=== PATIENT | female | born 1945 | race Caucasian/White ===

== ENCOUNTER 2024-05-14 23:27 | Inpatient (IN) | payer MEDICARE, BC, SELFPAY ==
--- NOTE | ~2024-05-14 | MR_ITS ---
EXAMINATION: MR brain/brain stem wo con DATE: 05/16/2024 12:00 INDICATION: Altered mental status TECHNIQUE: Magnetic resonance imaging (MRI) of the brain and brainstem was performed without intraven ous contrast. Sequences included sagittal and axial T1-weighted SE, axial diffusion-weighted FS SE, a xial T2*-weighted GRE, axial T2-weighted FLAIR, and axial T2-weighted FSE. Apparent diffusion coeffic ient (ADC) maps were created. COMPARISON: Head CT dated 05/15/2024 FINDINGS: There are no areas of restricted diffusion to suggest acute infarction. No intracranial hemorrhage or abnormal intracranial mass lesion. There are a few scattered small foci of nonspecific increased T2- weighted signal intensity in the cerebral white matter, predominantly involving the deep and perivent ricular white matter which is within normal limits for age. There are no intraparenchymal signal abno rmalities seen on the other pulse sequences. The ventricles are symmetric and normal in size. There a re no abnormal extra-axial fluid collections. Flow voids are seen in the cerebral arteries on the T2- weighted sequences consistent with their expected patency. Changes of bilateral intraocular lens repl acement. Mild mucosal thickening the bilateral ethmoid sinuses. Visualized orbits and soft tissues ar e unremarkable. IMPRESSION: 1. Normal aging brain with mild scattered white matter T2 hyperintensity consistent with chronic smal l vessel ischemic disease. No acute intracranial process. Reviewed, dictated and finalized at location A. MATED LOGISTICS SPECIALIST IMPRESSION: 1. Normal aging brain with mild scattered white matter T2 hyperintensity consis tent with chronic small vessel ischemic disease. No acute intracranial process.
--- NOTE | ~2024-05-14 | CT_ITS ---
History: Fall, confusion PROCEDURE: CT head without contrast. COMPARISON: None TECHNIQUE: Axial imaging of the head performed from the skull base to the vertex without IV contrast. Sagittal a nd coronal reformations obtained. DLP: 757 mGy-cm FINDINGS: The ventricles are enlarged. The dilatation of the ventricles is proportional to the degree of sulcal prominence, not uncommon in the senescent brain. Decreased attenuation is identified within the periventricular white matter, likely secondary to micr ovascular ischemic disease, in a patient of this age. Basal ganglia calcifications are present. There is no mass, mass effect or midline shift. There is no abnormal extra-axial fluid collection or intracranial hemorrhage. Visualized paranasal sinuses are clear. The mastoid air cells are well aerated. No acute displaced fractures within the overlying cranium. Impression: No acute intracranial hemorrhage or suspicious mass effect. Reviewed, dictated and finalized at location A. OUT PRESS OPERATOR Impression: No acute intracranial hemorrhage or suspicious mass effect.
--- NOTE | ~2024-05-14 | XR_ITS ---
Portable chest x-ray Comparison: None Clinical History: Status post fall Findings: Lungs are clear, without focal consolidation or pleural effusion. Cardiomediastinal silho uette is enlarged. Bones and soft tissues are unremarkable. Impression: Clear lungs. Cardiomegaly. Reviewed, dictated and finalized at location . OUT WORKER Impression: Clear lungs. Cardiomegaly.
--- NOTE | ~2024-05-14 | XR_ITS ---
AP view of the pelvis and AP and lateral views of the right hip Clinical history: Pain Findings: No acute fracture or dislocation is seen. Osseous alignment is anatomic. There is severe ri ght hip joint osteoarthritis, with [id number] appearance and marked joint space. There is reactive sclerosis and subchondral cystic change in the right humeral head. Left hip joint is intact.. Soft ti ssues are unremarkable. Impression: Severe osteoarthritis of the right hip joint, as detailed above. No acute fracture or dislocation seen. Reviewed, dictated and finalized at location M. SIT POLICE OFFICER Impression: Severe osteoarthritis of the right hip joint, as detailed above. No acute fracture or dislocation seen.
[2024-05-14 23:26] VITALS: BP 154/74; PULSE 104; RESP 15; TEMP 36.8; O2SAT 97
--- NOTE | 2024-05-14 23:40 | ECG_ITS ---
Test Date: 2024-05-14 23:52:01 Measurements Intervals [place] Rate: 104 P: 51 CO: 161 QRS: 1 QRSD: 90 T: 18 QT: 353 QTc: 465 Interpretive Statements SINUS TACHYCARDIA LOW QRS VOLTAGE IN PRECORDIAL LEADS POSSIBLE ANTERIOR MYOCARDIAL INFARCTION , PROBABLY OLD BORDERLINE ST-T WAVE ABNORMALITY- INFERIOR LEADS BASELINE ARTIFACT- I, II, III, AVR, AVL, AVF, V1-V6 ABNORMAL ECG No previous ECG available for comparison Electronically Signed On 05-15-2024 10:07:52 OBSTETRICS GYNECOLOGY PHYSICIAN by Leonard Cowan D.O.
--- OUTSIDE RECORDS SUMMARY | 2024-05-14 23:51 | XMS_ITS | Referral Summary ---
Author Organization [facility] Address [address] [place] [address] Care Team Providers Care Voip Technician Name Role Phone Kendra BAILEY MD, Graham Palomino Primary Care Provid er Allergies No known active allergies Medications lisinopril-hyd roCHLOROthiazi de (PRINZIDE,ZEST ORETIC) 10-12.5 mg per tablet 10-12.5 mg Active aspirin 81 mg enteric coated tablet Take 1 tablet (81 mg total) by mouth daily Active multivitamin tablet Rx: Multivitamins Capsule Active rosuvastatin (CRESTOR) 10 mg tablet 3 Active tiZANidine (ZANAFLEX) 2 mg tabletIndicati ons:Chronic right-sided low back pain without sciatica Take 1 tablet (2 mg total) by mouth nightly as needed for muscle spasms 30 tablet 4 Active Active Problems Problem Noted Date Diagnosed Date Right sided sciatica 02/14/2022 Primary osteoarthritis of left knee 11/07/2021 Chronic pain of left knee 11/07/2021 Aftercare following joint replacement 09/03/2017 Immunizations Name Administration Dates Next Due Influenza, Trivalent, High D ose, Split, Preservative Free, Intramuscular 12/26/2017 Social History Tobacco Use Types Packs/Day Years Used Date Smoking Tobacco: Never Smokeless Tobacco: Never Tobacco Cessation:Counseling Given: Not Answered Alcohol Use Standard Drinks/Week Comments Not Currently 0 (1 standard drink = 0.6 oz pur e alcohol) AUDIT-C Answer Date Recorded Frequency of Alcohol Consumption Never 07/11/2018 Average Number of Drinks Not on file 019 Frequency of Binge Drinking Not on file 07/01 Personal Safety Answer Date Recorded Getting School Help Needed Not on file 03/15 Comments Unknown Sex and Gender Information Value Date Recorded Sex Assigned at Not on file Legal Sex Female 2:41 AM DETECTIVE CHIEF Gender Identity Not on file Sexual Orientation Not on file 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 Not on file Not on file Not on file Last Filed Vital Signs Vital Sign Reading Time Taken Comments Blood Pressure 109/50 07/30/2017 3:17 PM CDT Pulse 94 07/30/2017 3:17 PM CDT Temperature 36.4 C (97.5 F) 07/30/2017 3:17 PM CDT Respiratory Rate - - Oxygen Saturation 95% 07/30/2017 3:17 PM CDT Inhaled Oxygen Concentration - - Weight 83.5 kg (184 lb) 12/10/2023 10:42 AM CDT Height 162.6 cm (5' 4 ) 12/10/2023 10:42 AM CDT Body Mass Index 31.58 12/10/2023 10:42 AM CDT Plan of Treatment Not on file Procedures Procedure Name Priority Date/Time Associated Diagnosis Comments SCREENING MAMMOGRAM 2D BILATERAL Routine 03/30/2014 9:21 AM DETECTIVE CHIEF from Last 3 Months or Most Recently Relevant to Health Maintenance Results * Screening Mammogram 2D Bilateral (03/30/2014 9:21 AM DETECTIVE CHIEF) Anatomical Region Laterality Modality Breast Bilateral Mammography 03/30/2014 9:21 AM DETECTIVE CHIEF Impressions 03/30/2014 1:16 PM DETECTIVE CHIEF BIRADS 1: NEGATIVE There is no mammographic evidence of malignancy. A 1 year screening mammogram is recommended. The patient has been or will be contacted. The patient will be entered into an automated reminder system to schedule a mammogram in one year. Electronically signed by: Dr. Stephen Moscoso nh/:03/30/2014 13:15:05 Marketing Information Coordinator: Shama MARTINEZ (R)(M), [facility] letter sent: Normal Exam Reading location: BI-RADS: 1 Negative [EOD] Narrative 03/30/2014 1:16 PM DETECTIVE CHIEF - ABDIRAHMAN BILATERAL SCREENING W/CAD BILATERAL DIGITAL SCREENING MAMMOGRAM WITH CAD: 03/30/2014 The study was acquired using full field digital technology and interpreted from soft copy. Current study was also evaluated with ICAD version 7.2. COMPARISONS: Comparison is made to exams dated: 12/09/2012 mammogram and 10/06/2011 mammogram - [facility]. BREAST TISSUE:There are scattered fibroglandular densities in both breasts. FINDINGS: No significant masses, calcifications, or other findings are seen in either breast. There has been no significant interval change. Procedure Note Provider, MD Elizabeth - 08/17/2020 - ABDIRAHMAN BILATERAL SCREENING W/CAD BILATERAL DIGITAL SCREENING MAMMOGRAM WITH CAD: 03/30/2014 The study was acquired using full field digital technology and interpretedfrom soft copy. Current study was also evaluated with ICAD version 7.2. COMPARISONS: Comparison is made to exams dated: 12/09/2012 mammogram and 10/06/2011 mammogram - [facility]. BREAST TISSUE:There are scattered fibroglandular densities in bothbreasts. FINDINGS: No significant masses, calcifications, or other findings areseen in either breast. There has been no significant interval change. IMPRESSION: BIRADS 1: NEGATIVE There is no mammographic evidence of malignancy. A 1 year screeningmammogram is recommended. The patient has been or will be contacted. The patient will be entered into an automated reminder system to schedulea mammogram in one year. Electronically signed by: Dr. Stephen Moscoso nh/:03/30/2014 13:15:05 Marketing Information Coordinator: Shama De Jesus RT (R)(M), [facility] letter sent: Normal Exam Reading location: BI-RADS: 1 Negative [EOD] Scout Pak MD IMG MAMMO PROCEDURES Fi nal Result from Last 3 Months or Most Recently Relevant to Health Maintenance Insurance MEDICARE [facility] MEDICARE [facility] Care Teams Voip Technician Relationship Specialty Start Date End Date rGaham Gardner II, MD PCP - General Family Practice 02/14/22
--- OUTSIDE RECORDS SUMMARY | 2024-05-14 23:51 | XMS_ITS | Clinical Summary ---
Author Organization [facility] Address [facility] [place] [address] Care Team Providers Care Cash Grain Farmer Name Role Phone Kendra BAILEY MD, Graham Mendez Primary Care Provider Allergies No known active allergies Medications aspirin EC (ECOTRIN) 81 MG tablet Take 1 tablet (81 mg total) by mouth daily. Active Multiple Vitamin (MULTIVITAMIN) capsule Rx: Multivitamins Capsule Active lisinopril (PRINIVIL) 10 MG tabletIndications :Stage 3b chronic kidney disease (CMS/HCC HHS/HCC) take 1 tablet daily 90 tablet 3 10/11/19 24 Active Misc. Devices (TABLET CUTTER-REFINERY OPERATOR) MiscIndications:A djustment insomnia Use as directed to cut tablets in half. 1 each 1 11/21/19 24 Active rosuvastatin (CRESTOR) 10 MG tabletIndications :Mixed hyperlipidemia Take 1 tablet (10 mg total) by mouth nightly at bedtime. 90 tablet 3 03/25/20 24 Active carvedilol (COREG) 6.25 MG tabletIndications :Primary hypertension Take 1 tablet (6.25 mg total) by mouth 2 (two) times daily. 180 tablet 3 05/01/19 25 Active LORazepam (ATIVAN) 0.5 MG tabletIndications :Adjustment insomnia,Adjustme nt disorder with mixed anxiety and depressed mood Take 1 tablet (0.5 mg total) by mouth every 8 (eight) hours as needed for Anxiety. 60 tablet 1 09/17/19 24 025 Discontin ued(Formu juan jose change) traZODone (DESYREL) 50 MG tabletIndications :Adjustment insomnia Take 0.5 tablets (25 mg total) by mouth nightly at bedtime. 45 tablet 3 11/21/19 24 025 Discontin ued(Thera py completed ) amLODIPine (NORVASC) 5 MG tabletIndications :Primary hypertension Take 1 tablet (5 mg total) by mouth daily. 90 tablet 3 03/25/20 24 025 Discontin ued(Side effects) Active Problems Problem Noted Date Diagnosed Date Class 1 obesity due to exces s calories with serious comorbidity and body mass index (BMI) of 31.0 to 31.9 in adult 05/22/2023 Stage 3b chronic kidney disease ([facility]/HCC [facility] ) 02/27/2022 Primary hypertension 01/31/2021 Mixed hyperlipidemia 01/31/2021 Chronic pain of left knee 01/31/2021 Aftercare following joint replacement 09/03/2017 Arthritis Resolved Problems Problem Noted Date Diagnosed Date Resolved Date Encounter for hepatitis C vi priscila screening test for high risk patient 08/01/2021 08/08/2021 Encounters Date Type Department Care Team Description 05/01/2024 3:00 PM SUPERVISOR PAINT ROLLER COVERS Office Visit [address] [address] Graham Gardner II, MD Edema (Patient presents for edema in feet) 05/01/2024 Travel 04/24/[address] [address] Graham Gardner II, MD Medication Request 04/01/2024 Elicia Message Enc [facility] Multispecialty Care - [address], [facility] [address] [place] [address] Elicia [facility] Provider reschedule 03/25/[address] [address] Graham Gardner II, MD Refill Request from Last 3 Months Immunizations Name Administration Dates Next Due Fluad influenza vaccine, Kushal drivalent (aIIV4), Inactivated, adjuvanted, preservative free, 0.5 mL,IM use 01/23/2021 Fluzone High Dose - >Age 65 (Prefilled Syringe) 02/27/2023,01/19/2022,01/05/2020,2018,12/25/2017,12/21/2016,12/18/2015,0 12/08/2012 Influenza Adult (Generic) 01/19/2019,,01/02/2015,2013 PFIZER COVID-19 (ORIGINAL FORMULATION, PURPLE CAP) mRNA, LNP-S, PF, 30 MCG/0.3 ML DOSE 01/05/2021,06/13/2020,05/16/2020 Family History Medical History Relation Comments Seizures Brother Diabetes Daughter Colon Cancer Father Hyperlipidemia Father OBS Father Seizures Father Breast Cancer Mother PDSD Son Relation Status Comments Brother Alive Daughter Alive Father Mother Son Alive Social History Tobacco Use Types Packs/Day Years Used Date Smoking Tobacco: Never Smokeless Tobacco: Never Tobacco Cessation:Counseling Given: No Alcohol Use Standard Drinks/Week Comments Not Currently 0 (1 standard drink = 0.6 oz pur e alcohol) PHQ-2 Answer Date Recorded Patient Health Questionnaire-2 Score 0 09/27/2023 Comments No Sex and Gender Information Value Date Recorded Sex Assigned at Not on file Legal Sex Female 7:28 PM CDT Gender Identity Not on file Sexual Orientation Not on file Last Filed Vital Signs Vital Sign Reading Time Taken Comments Blood Pressure 125/84 05/01/2024 2:55 PM SUPERVISOR PAINT ROLLER COVERS Pulse 110 05/01/2024 2:55 PM SUPERVISOR PAINT ROLLER COVERS Temperature 36.9 C (98.4 F) 05/01/2024 2:55 PM SUPERVISOR PAINT ROLLER COVERS Respiratory Rate 18 11/21/2022 12:16 PM CDT Oxygen Saturation 98% 05/01/2024 2:55 PM SUPERVISOR PAINT ROLLER COVERS Inhaled Oxygen Concentration - - Weight 83.5 kg (184 lb) 05/01/2024 2:55 PM SUPERVISOR PAINT ROLLER COVERS Height 165.1 cm (5' 5 ) 09/27/2023 1:26 PM CDT Body Mass Index 30.62 09/27/2023 1:26 PM CDT Plan of Treatment Upcoming Encounters Date Type Department Care Team (Late st Contact Info) Description 05/22/2024 1:00 PM SUPERVISOR PAINT ROLLER COVERS Office Visit [facility] - [place] [address] [place] [phone] Graham Gardner II, MD [address] [place] [address] 07/15/2024 10:40 AM CDT Office Visit [facility] - [facility], [facility] [address] [place] [phone] Kwame Burnette MD 3 [facility], [facility] [address] [place] [address] Health Maintenance Due Date Last Done Comments DTaP, Tdap and Td Vaccines (1 - Tdap) 1964 Zoster Vaccines (1 of 2) 1995 Annual Medicare Wellness Visit 2010 Dexa Scan (General) 2010 Pneumococcal Vaccine: 65+ Years (1 of 1 - PCV) 2010 RSV Immunization or 60+ Years (1 - 1-dose 75+ series) 2020 COVID-19 Vaccine ( - season) 2023 03/09/2023, 01/05/2021, 06/13/2020, Additional history exists Influenza Adult (#1) 2024 02/27/2023, 01/19/2022, 01/23/2021, Additional history exists PHQ-2 (Physician Marilla) 04/02/2024 09/27/2023 Hepatitis C Completed 01/26/2022 Meningococcal B Vaccine Aged Out No l onger eligible based on patient's age to complete this topic Meningococcal Vaccine Aged Out No mile kyle eligible based on patient's age to complete this topic RSV Immunizations Under 20 Months Aged Out No longer eligible based on patient's age to complete this topic Procedures Procedure Name Priority Date/Time Associated Diagnosis Comments HEPATITIS C ANTIBODY W/RFX TO HCV RNA Routine 01/26/2022 7:16 AM CDT Encounter for hepatitis C virus screening test for high risk patient from Last 3 Months or Most Recently Relevant to Health Maintenance Results * HEPATITIS C ANTIBODY W/RFX TO HCV RNA ([facility] ONLY) (01/26/2022 7:16 AM CDT) HEPATITIS C AB NON-REACTI VE NON-REACT IGOR [facility] SIGNAL TO CUTOFF 0.01 <[address] [facility] Comment: HCV antibody was non-reactive. There is no laboratory evidence of HCV infection. In most cases, no further action is required. However, if recent HCV exposure is suspected, a test for HCV RNA (test code 43795) is suggested. For additional information please refer to http://education.Joinity/faq/LHA78t7 (This link is being provided for informational/ educational purposes only.) 01/26/2022 7:16 AM CDT 01/26/2022 7:17 AM CDT Narrative [facility] - 01/27/2022 9:15 AM CDT FASTING:YES FASTING: YES us Shawn Roy MD LABORATORY Final Resul t [facility] [address] [place] [address] from Last 3 Months or Most Recently Relevant to Health Maintenance Insurance MEDICARE [facility] Care Teams Cash Grain Farmer Relationship Specialty Start Date End Date Graham Gardner II, MD [address] [place] [address] PCP - General FAMILY PRACTICE 12/10/21
--- OUTSIDE RECORDS SUMMARY | 2024-05-14 23:51 | XMS_ITS | Encounter Summary ---
Author Organization [facility] Facility Care Team Providers Care Platemaker Name Role Phone Shawn Roy MD Primary Care Provider + [phone] Kendra BAILEY MD, Graham Palomino Primary Care Provid er Encounter Details Date Type Department Care Team (Latest Contact Info) Description 07/30/2017 Orders Only [facility] CLINCONV ProviderElizabeth MD [address] [place] [address] Social History Tobacco Use Types Packs/Day Years Used Date Smoking Tobacco: Never Assessed Comments Unknown Sex and Gender Information Value Date Recorded Sex Assigned at Not on file Legal Sex Female 2:41 AM FIBER ARTIST Gender Identity Not on file Sexual Orientation Not on file documented as of this encounter Plan of Treatment Not on file documented as of this encounter Procedures Procedure Name Priority Date/Time Associated Diagnosis Comments PROCEDURE - RESULT 08/01/2017 12 :00 AM CDT documented in this encounter Results * PROCEDURE - RESULT (08/01/2017 12:00 AM CDT) Narrative 08/01/2017 12:00 AM CDT Ordered by an unspecified provider. Historical Provider Final Res ult documented in this encounter Visit Diagnoses Not on filedocumented in this encounter Care Teams Platemaker Relationship Specialty Start Date End Date Shawn Roy MD [address] [place] [address] PCP - General Family Medicine 07/11/18 02/13/22 Graham Gardner II, MD [address] [place] [address] PCP - General Family Practice 02/14/22 documented as of this encounter
--- OUTSIDE RECORDS SUMMARY | 2024-05-14 23:51 | XMS_ITS | Encounter Summary ---
Author Organization [facility] Address [address] [place] [address] Care Team Providers Care Computer Science Intern Name Role Phone Kendra BAILEY MD, Graham Mendez Primary Care Provider Encounter Details Date Type Department Care Team (Late Contact Info) Description 04/01/2024 [employer] Message Enc [address], [address] [address] Mychart, [facility] Provider reschedule Social History Tobacco Use Types Packs/Day Years Used Date Smoking Tobacco: Never Smokeless Tobacco: Never Alcohol Use Standard Drinks/Week Comments Not Currently [...] as of this encounter Plan of Treatment Upcoming Encounters Date Type Department Care Team (Late st Contact Info) Description 05/22/2024 1:00 PM NONPROFIT DIRECTOR Office Visit [facility] Family Medicine - [address] [phone] Graham Gardner II, MD [address] [place] [address] 07/15/2024 10:40 AM CDT [address], [facility] [address] [place] [address] Kwame Burnette MD 3 [facility], [facility] [address] [place] [address] documented as of this encounter Visit Diagnoses Not on filedocumented in this encounter Additional Health Concerns Assessment Noted Time PHQ-9 Depression Total Score: 0 02/28/20 22 12:56 PM NONPROFIT DIRECTOR documented as of this encounter Care Teams Computer Science Intern Relationship Specialty Start Date End Date Graham Gardner II, MD [address] [place] [phone] PCP - General FAMILY PRACTICE 12/10/21 documented as of this encounter
--- OUTSIDE RECORDS SUMMARY | 2024-05-14 23:51 | XMS_ITS | Clinical Summary ---
Author Organization [facility] Address [address] [place] [address] Care Team Providers Care Site Promotion Agent Name Role Phone Kendra BAILEY MD, Graham [...] D ose, Split, Preservative Free, Intramuscular 12/26/2017 Surgical History Surgery Date Site/Laterality Comments HYSTERECTOMY JOINT REPLACEMENT BREAST MASS EXCISION Right KNEE SURGERY 07/01/2017 - 07/30/2017 Right Medical History Medical History Date Comments Hypertension Hypercholesteremia Arthritis Lumbar facet arthropathy DDD (degenerative disc disease), lumbar Chronic lumbar pain Anterolisthesis of lumbar spine Pain of right sacroiliac joint 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 Primary osteoarthritis of left knee Family History Medical History Relation Name Comments Cancer Father colon cancer Cancer Mother breast cancer Cancer Other Relation Name Status Comments Father Mother Other Social History Tobacco Use Types Packs/Day Years [...] on file Legal Sex Female 2:41 AM SLIP LASTER Gender Identity Not on file Sexual Orientation Not on file 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 Not on file Not on file Not on file Obstetrics History Last Filed Vital Signs Vital Sign Reading [...] 12/10/2023 10:42 AM CDT Plan of Treatment Health Maintenance Due Date Last Done Comments Depression Screening 1945 Fall Risk Assessment 1945 Hepatitis C Screening 1945 Osteoporosis Screening-Bone Density Scan 1945 DTaP/Tdap/Td Vaccine (1 - Tdap) 1956 Hepatitis B Screening 1963 Zoster Vaccine (1 of 2) 1995 Pneumococcal vaccine 65+ (1 of 1 - PCV) 2010 Well Visit 65+ 2010 Covid-19 Vaccine (4 - 2023-2 5 season) 2023 01/05/2021, 06/13/2020, 05/16/2020 Influenza Vaccine (#1) 2023 , 01/05/2020, 01/19/2019, Additional history exists Breast Cancer Screening-Mammogram Discontinued 014, 12/09/2012 Procedures Procedure Name Priority Date/Time Associated Diagnosis Comments SCREENING MAMMOGRAM 2D BILATERAL Routine 03/30/2014 9:21 AM SLIP LASTER from Last 3 Months or Most Recently Relevant to Health Maintenance Results * Screening Mammogram 2D Bilateral (03/30/2014 9:21 AM SLIP LASTER) Anatomical Region Laterality Modality Breast Bilateral Mammography 03/30/2014 9:21 AM SLIP LASTER Impressions 03/30/2014 1:16 PM SLIP LASTER BIRADS 1: NEGATIVE There is no mammographic evidence of malignancy. A 1 year screening mammogram is recommended. The patient has been or will be contacted. The patient will be entered into an automated reminder system to schedule a mammogram in one year. Electronically signed by: Dr. Stephen Moscoso nh/:03/30/2014 13:15:05 Grain Mixer: Shama MARTINEZ (Mynor)([place]), [facility] letter sent: Normal Exam Reading location: BI-RADS: 1 Negative [EOD] Narrative 03/30/2014 1:16 PM SLIP LASTER - ABDIRAHMAN BILATERAL SCREENING W/CAD BILATERAL DIGITAL SCREENING MAMMOGRAM WITH CAD: 03/30/2014 The study was acquired using full field digital technology and interpreted from soft copy. Current study was also evaluated with ICAD version 7.2. COMPARISONS: Comparison is made to exams dated: 12/09/2012 mammogram and 10/06/2011 mammogram - [facility]. BREAST TISSUE:There are scattered fibroglandular densities [...] dated: 12/09/2012 mammogram and 10/06/2011 mammogram - [facility]. BREAST TISSUE:There are scattered fibroglandular densities [...] signed by: Dr. Stephen Moscoso nh/:03/30/2014 13:15:05 Grain Mixer: Shama Fall)([place]), [facility] letter sent: Normal Exam Reading location: BI-RADS: 1 Negative [EOD] Scout Pak MD IMG MAMMO PROCEDURES Fi nal Result from Last 3 Months or Most Recently Relevant to Health Maintenance [place] [address] [facility] MEDICARE [facility] Care Teams Site Promotion Agent Relationship Specialty Start Date End Date Graham Gardner II, MD PCP - General Family Practice 02/14/22
--- OUTSIDE RECORDS SUMMARY | 2024-05-14 23:51 | XMS_ITS | Encounter Summary ---
Author Organization [facility] Facility Care Team Providers Care Finnish Rubber Name Role Phone Shawn Roy MD Primary Care Provider + [phone] Kendra BAILEY MD, Graham Palomino Primary Care Provid er Encounter Details Date Type Department Care Team (Latest Contact Info) Description 07/23/2017 Orders Only [facility] CLINCONV ProviderElizabeth MD [address] [place] [address] Social History Tobacco Use Types Packs/Day Years Used Date Smoking Tobacco: Never Assessed Comments Unknown Sex and Gender Information Value Date Recorded Sex Assigned at Not on file Legal Sex Female 2:41 AM BUSINESS COORDINATOR Gender Identity Not on file Sexual Orientation Not on file documented as of this encounter Plan of Treatment Not on file documented as of this encounter Procedures Procedure Name Priority Date/Time Associated Diagnosis Comments PROCEDURE - RESULT 07/23/2017 12 :00 AM CDT documented in this encounter Results * PROCEDURE - RESULT (07/23/2017 12:00 AM CDT) Narrative 07/23/2017 12:00 AM CDT Ordered by an unspecified provider. Historical Provider Final Res ult documented in this encounter Visit Diagnoses Not on filedocumented in this encounter Care Teams Finnish Rubber Relationship Specialty Start Date End Date Shawn Roy MD [address] [place] [address] PCP - General Family Medicine 07/11/18 02/13/22 Graham Gardner II, MD [address] [place] [address] PCP - General Family Practice 02/14/22 documented as of this encounter
[2024-05-14 23:59] VITALS: PULSE 102
[2024-05-15] VITALS (13 sets, daily range): BP systolic 122–148; BP diastolic 41–103; PULSE 82–107; RESP 17–24; TEMP 36.4–36.7; O2SAT 93–100; BMI 29.9
--- NOTE | 2024-05-15 00:09 | ED_ITS ---
HPI - Altered Mental Status General Chief Complaint: Altered Mental Status Stated Complaint: fall x 2 today/weakness/confusion Time Seen by Provider: 05/14/24 23:43 History of Present Illness HPI narrative: 79-year-old female with unknown past medical history presenting to the emergency department for confusion, falls. She lives at home by herself and her family member including her granddaughter visits her daily. Today she fell twice at the home and was found on the ground for several hours. Unclear the circumstances that led to the fall but family states that she has been more confused lately. This past week she has been having intermittent events where she does not know where she is at, who is at the household, grabbing objects and is taking them for other objects. This is not happened to her in the past according to the family. They are not sure what medications she takes but ostensibly has not been taking them recently as they found her pill organizer under the couch out of reach. Patient herself is awake alert sick person place and time but is not sure why she fell twice today. She is not sure what happened. Unclear if she takes any blood thinner medications. Does not have any visible evidence of trauma. Previous to this past week was in her normal state of health according to family. Related Data Home Medications ?Medication ?Instructions ?Recorded ?Confirmed ?Last Taken ?Type aspirin 81 mg capsule 81 mg PO DAILY 05/15/24 05/15/24 05/14/24 History carvedilol 6.25 mg tablet 6.25 mg PO Q12H 05/15/24 05/15/24 05/14/24 History lisinopril 10 mg tablet 10 mg PO DAILY 05/15/24 05/15/24 05/14/24 History lorazepam 0.5 mg tablet 0.5 mg PO PRN PRN anxiety 05/15/24 05/15/24 Unknown History multivitamin (Daily Multi-Vitamin 1 tablet PO DAILY 05/15/24 05/15/24 05/14/24 History tablet) rosuvastatin 10 mg tablet 10 mg PO DAILY 05/15/24 05/15/24 05/14/24 History Allergies Allergy/AdvReac Type Severity Reaction Status Date / Time No Known Allergies Allergy Verified 05/14/24 23:30 Review of Systems 2 Review of Systems: As reviewed above in HPI Exam 2 Narrative: GENERAL: Elderly and frail but not any acute distress HEAD: [Normocephalic, atraumatic.] EYES: [PERRLA and EOMI.] ENT: Nares clear, no rhinorrhea or epistaxis. Mucous membranes moist. NECK: Supple. CHEST: [Clear to auscultation. No respiratory distress.] HEART: [Regular rate and rhythm]. No murmur heard. [Normal peripheral pulses.] ABDOMEN: [Soft, nondistended], [nontender], [No rigidity or guarding] EXTREMITIES: Normal range of motion. 1+ pitting edema bilaterally, tenderness to the right hip but no step-offs or deformity. Full range of motion. SKIN: Warm, dry, no rash. NEURO: [No focal deficits]. Alert and oriented [x3.] Normal strength and sensation without asymmetry in the arms, legs or face. PSYCH: [Normal mood and affect.] Course Vital Signs Vital signs: Vital Signs Temperature 36.8 C 05/14/24 23:26 Pulse Rate 104 H 05/14/24 23:26 Respiratory Rate 15 05/14/24 23:26 Blood Pressure 154/74 H 05/14/24 23:26 Pulse Oximetry 97 05/14/24 23:26 Oxygen Delivery Room Air 05/14/24 23:26 Temperature 36.6 C 05/15/24 02:01 Pulse Rate 107 H 05/15/24 02:01 Respiratory Rate 18 05/15/24 02:01 Blood Pressure 134/98 H 05/15/24 02:01 Pulse Oximetry 95 05/15/24 02:01 Oxygen Delivery Room Air 05/15/24 00:16 MDM - Altered Mental Status MDM Narrative Medical decision making narrative: 79-year-old female with an unclear past medical history presenting to the ER for evaluation of multiple falls today and confusion for the past week. She lives alone, granddaughter lives a few houses down in visits daily. For last week she has been having intermittent confusion and falling frequently twice today. She was on the ground for several hours today according to the family. No visible signs of trauma but she does have some pain in her right hip. She is slightly tachycardic with a pulse of 102, no fever, hypoxia or significant blood pressure elevation. No signs of head trauma. Her granddaughter does not know what medication she takes. Patient has never been to this facility before. Granddaughter is concerned that she is not safe to go back to her home and would benefit from assisted living or other placement options. Patient herself is alert x3 but does have intermittent confusion. Normal neurological examination otherwise. Extensive workup was ordered including CBC, CMP, urinalysis, chest x-ray, CT of the head. CPK ordered. Family members were able to get a hold of her prescription medications at home and she takes lisinopril, amlodipine, daily aspirin and a statin. Ostensibly has a history of hypertension hyperlipidemia, no other reported medical history. Chest x-rays show some cardiomegaly but no infiltrates effusions or pneumothorax. Hip x-ray shows severe osteoarthritis of the right hip with [id number]-sy-[id number] articulation but no acute fracture or dislocation. Workup revealed no leukocytosis, anemia with hemoglobin of 10.3 with no baseline to compare to. Normal platelet count. Coagulation panel within normal limits, BUN and creatinine are slightly elevated but again no baseline for comparison. Normal electrolytes otherwise, normal lactic acid and normal LFTs. CPK mildly elevated 172. Urinalysis shows no signs of infection. Head CT shows no acute intracranial findings. Patient was re-evaluated bedside, got a Tylenol for her hip pain. I discussed with the family member at bedside and the patient herself plan of care and the family is uncomfortable with her being discharged as she lives alone and has had falls with inability get up at home. Patient herself has not been confused while here in the emergency department answering all my questions appropriately and acting appropriately. I discussed options with them including placement, admission for physical therapy and rehabilitation, PT and OT evaluations or or even discharge home with family members are able to take care of her. Patient and family wanted to be admitted. Discussed the case with the hospitalist service currently being covered by Dr. Lyles. Recommendations to add a urine drug screen as well as vitamin B12 and folic acid levels and patient will be admitted to a medical-surgical bed. Medical Records Attestation: I reviewed the patient's medical records. Lab Data Attestation: I reviewed the patient's lab results. 05/15/24 00:13 05/15/24 00:13 Labs: Lab Results 05/15/24 Range/Units 00:13 WBC 7.8 (4.5-10.0) K/mm3 RBC 3.50 L (4.2-5.4) M/mm3 Hgb 10.3 L (12.0-15.0) g/dL Hct 31.8 L (37.0-47.0) % MCV 90.9 (80-100) fl MCH 29.4 (26-34) pg MCHC 32.4 (32-36) g/dl RDW 14.4 (11.5-14.5) % Plt Count 362 (150-375) k/mm3 MPV 10.2 (7.4-10.4) fl Immature Gran % (Auto) 1.7 H (0-0.5) % Neut % (Auto) 73.1 (45.5-73.1) % Lymph % (Auto) 15.1 L (18.3-44.2) % Bonner % (Auto) 7.9 (2.6-8.5) % Eos % (Auto) 1.8 (0-4.4) % Baso % (Auto) 0.4 (0.2-1.2) % Lymph # (Auto) 1.18 (0.9-3.2) K/mm3 Bonner # (Auto) 0.6 (0.1-0.6) K/mm3 Eos # (Auto) 0.1 (0-0.3) K/mm3 Baso # (Auto) 0.0 (0.0-0.1) K/mm3 Abs Immat Gran (auto) 0.13 H (0.00-0.031) K/mm3 Absolute Neuts (auto) 5.7 (1.3-6.7) K/mm3 Absolute Nucleated RBC 0.000 (0.0-0.012) K/mm3 Nucleated RBC % 0.0 (0.0-0.2) % PT 14.1 (11.1-14.7) Seconds INR 1.0 APTT 27.5 (22.3-36.8) Seconds Sodium 142 (137-145) mmol/L Potassium 3.9 (3.4-5.0) mmol/L Chloride 108 H (98-107) mmol/L Carbon Dioxide 23 (22-30) mmol/L Anion Gap 11 (4-12) mmol/L BUN 23 H (7-17) mg/dL Creatinine 1.18 H (0.7-1.0) mg/dL Estim Creat Clear Calc 36 ml/min Estimated GFR 44 L (59 - ) Glucose 83 (65-110) mg/dL Lactic Acid 1.3 (0.7-2.0) mmol/L Calcium 9.9 (8.4-10.2) mg/dL Total Bilirubin 0.7 (0.2-1.3) mg/dL AST 24 (14-36) U/L ALT 15 (6-35) U/L Alkaline Phosphatase 76 (38-126) U/L Total Creatine Kinase 172 H (30-135) U/L Total Protein 7.0 (6.3-8.2) g/dL Albumin 3.8 (3.5-5.1) g/dL Urine Color Yellow (Yellow) Urine Appearance Clear (Clear) Urine pH 5.5 (5.0-9.0) Ur Specific [place] 1.025 (1.001-1.035) Urine Protein Trace (Negative) mg/dL Urine Glucose (UA) Negative (Negative) mg/dL Urine Ketones 1+ H (Negative) mg/dL Ur Blood (Man) Negative (Negative) Urine Nitrate Negative (Negative) Urine Bilirubin Negative (Negative) Urine Urobilinogen 1.0 (<2.0) mg/dL Leukocyte Esterase Rfl Negative (Negative) CORKY/UL Urine RBC 3-5 H (0-2) /hpf Urine WBC 0-5 (0-3) /hpf Ur Squamous Epith Cells None seen (Few) /hpf Urine Bacteria None seen /hpf Urine Casts 0-2 Imaging Data Attestation: I personally reviewed and interpreted this imaging study as follows: My impression: Impressions Head CT 05/15/24 00:29 Impression: No acute intracranial hemorrhage or suspicious mass effect. Radiologist's impression: Right hip osteoarthritis with [id number] articulation, no pneumonia. Discharge Plan Discharge Clinical Impression: Confusion, Falls frequently Patient Disposition: Still a Patient Condition: Stable Patient Language: Persian Prescriptions: No Action carvedilol 6.25 mg tablet 6.25 mg PO Q12H aspirin 81 mg capsule 81 mg PO DAILY lisinopril 10 mg tablet 10 mg PO DAILY rosuvastatin 10 mg tablet 10 mg PO DAILY multivitamin [Daily Multi-Vitamin] Tablet 1 tablet PO DAILY lorazepam 0.5 mg tablet 0.5 mg PO PRN PRN (Reason: anxiety) Follow-up/Referrals: Manuela,Shawn Barrett MD [Primary Care Provider] - Time of Disposition: 03:51
[2024-05-15 00:25] LABS: Add Urine Microscopic? YES; Appearance Urine Clear (Clear); Bacteria Urine None Seen /hpf; Bilirubin Urine Negative (Negative); Blood Urine Negative (Negative); Color Urine Yellow (Yellow); Glucose Urine UA Negative (Negative); Ketones Urine 1+ mg/dL (Negative); Leukocyte Esterase Ur Negative LEU/UL (Negative); Nitrate Urine Negative (Negative); Non Pathogenic Casts 0-2; Protein Urine Trace mg/dL (Negative); Specific Grav Ur 1.025 (1.001-1.035); Squamous Epithelial Cell Urine None Seen /hpf (Few); WBC Urine 0-5 /hpf (0-3); pH Urine 5.5 (5.0-9.0)
[2024-05-15 00:31] LABS: Alanine Aminotransferase 15 U/L (6-35); Albumin Level 3.8 g/dL (3.5-5.1); Alkaline Phosphatase 76 U/L (38-126); Anion Gap 11 mmol/L (4-12); Aspartate Amino Transferase 24 U/L (14-36); Bilirubin,Total 0.7 mg/dL (0.2-1.3); Blood Urea Nitrogen 23 mg/dL (7-17); Calcium 9.9 mg/dL (8.4-10.2); Carbon Dioxide 23 mmol/L (22-30); Chloride 108 mmol/L (98-107); Estimated CRCL calculation 36 ml/min; Estimated Glomerular Filt Rate 44; Glucose 83 mg/dL (65-110); Lactic Acid Reflex 1.3 mmol/L (0.7-2.0); Potassium 3.9 mmol/L (3.4-5.0); Sodium 142 mmol/L (137-145)
[2024-05-15 00:32] LABS: Prothrombin Time 14.1 Seconds (11.1-14.7)
[2024-05-15 00:33] LABS: Partial Thromboplastin Time 27.5 Seconds (22.3-36.8)
[2024-05-15 00:41] LABS: Creatine Kinase 172 U/L (30-135)
[2024-05-15] MEDS: LACTATED RINGERS 1,000 ML 999 ML IV CONT (00:48)
[2024-05-15 00:56] LABS: Basophils Percent Auto 0.4 % (0.2-1.2); Eosinophils Absolute Auto 0.1 K/mm3 (0-0.3); Eosinophils Percent Auto 1.8 % (0-4.4); Hematocrit 31.8 % (37.0-47.0); Hemoglobin 10.3 g/dL (12.0-15.0); Immature Granulocyte Absolute 0.13 K/mm3 (0.00-0.031); Immature Granulocyte Percent A 1.7 % (0-0.5); Lymphocytes Absolute Auto 1.18 K/mm3 (0.9-3.2); Lymphocytes Percent Auto 15.1 % (18.3-44.2); Mean Corpuscular HGB Conc 32.4 g/dl (32-36); Mean Corpuscular Hemoglobin 29.4 pg (26-34); Mean Corpuscular Volume 90.9 fl (80-100); Mean Platelet Volume 10.2 fl (7.4-10.4); Monocytes Absolute Auto 0.6 K/mm3 (0.1-0.6); Monocytes Percent Auto 7.9 % (2.6-8.5); Neutrophils Absolute Auto 5.7 K/mm3 (1.3-6.7); Neutrophils Percent Auto 73.1 % (45.5-73.1); Platelet Count Result 362 k/mm3 (150-375); Red Cell Distribution Width 14.4 % (11.5-14.5); White Blood Count 7.8 K/mm3 (4.5-10.0)
[2024-05-15] MEDS: ACETAMINOPHEN 500 MG TABLET 1000 MG PO (03:00)
[2024-05-15 04:21] LABS: Amphetamine Screen Urine Negative (Negative); Barbiturate Screen Urine Negative (Negative); Benzodiazepines Screen Urine Negative (Negative); Cannabinoid Screen Urine Negative (Negative); Cocaine Screen Urine Negative (Negative); Methadone Screen Urine Negative (Negative); Opiate Screen Urine Negative (Negative); Phencyclidine Screen Urine Negative (Negative)
[2024-05-15 05:17] LABS: Vitamin B12 < 159.0 pg/mL (239-931)
--- NOTE | 2024-05-15 06:44 | ADMGEN ---
This patient, Jennifer Mota, was admitted to [address] [place] [address] Room 330-02 at 06:45. Patient/family oriented to hospital policies and general routines including ID bracelet, bed and alarms, visiting hours, pain management, procedures, bathroom and other care routines, personal items, smoking policy, room service/diet, and visiting hours. Information on how to activate the Rapid Response Team has been discussed. Patient/Family are encouraged to report perceived risks to care and to ask questions if they do not understand what they are told or what they should do.
--- NOTE | 2024-05-15 08:43 | PM.IMHP ---
H&P: HPI History of Present Illness Date/Time: 05/15/24 08:43 Chief Complaint: Fall confusion Narrative: 79-year-old female with unknown past medical history presenting to the emergency department for confusion, falls. She lives at home by herself and her family member including her granddaughter visits her daily. Today she fell twice at the home and was found on the ground for several hours. Unclear the circumstances that led to the fall but family states that she has been more confused lately. This past week she has been having intermittent events where she does not know where she is at, who is at the household, grabbing objects and is taking them for other objects. This is not happened to her in the past according to the family. They are not sure what medications she takes but ostensibly has not been taking them recently as they found her pill organizer under the couch out of reach. Patient herself is awake alert oriented to person place and time but is not sure why she fell twice. She is not sure what happened. Unclear if she takes any blood thinner medications. Does not have any visible evidence of trauma. Previous to this past week was in her normal state of health according to family. On ED evaluation she was mildly tachycardic afebrile vitals were otherwise stable. No signs of head trauma. Patient continued to have intermittent confusion. Otherwise neurological examination was unremarkable. She has a history of hypertension and hyperlipidemia. Chest x-ray showed some cardiomegaly with no infiltrates effusion or pneumothorax. Hip x-ray showed severe osteoarthritis of the right hip with [id number]-[id number] articulation with no acute fracture dislocation. Laboratory workup revealed no leukocytosis mild anemia with hemoglobin of 10.3. Normal platelet. Coagulation panel was normal. BUN creatinine slightly elevated. Baseline unknown. Electrolytes normal lactic acid normal LFTs were normal CPK is mildly elevated at 172. Urinalysis was negative for infection. Head CT showed no acute intracranial findings. She is admitted in the setting for further evaluation and management Review of Systems Review of Systems: - CONSTITUTIONAL: Denies weight loss, fever and chills. - HEENT: Denies changes in vision and hearing - RESPIRATORY: Denies SOB and cough. - CV: Denies palpitations and CP. - GI: Denies abdominal pain, nausea, vomiting and diarrhea. - : Denies dysuria and urinary frequency. - MSK: Denies myalgia and joint pain. - SKIN: Denies rash and pruritus. - NEUROLOGICAL: Denies headache and syncope. Patient reports recurrent falls - PSYCHIATRIC: Denies recent changes in mood. Denies anxiety and depression. [facility] Family History Family History (Updated 05/15/24 @ 06:57 by Bell Brizuela) Daughter Diabetes mellitus Social History Social History Smoking status: Never smoker Second hand tobacco smoke exposure: Yes Alcohol intake: never Substance use: never Do You Feel Safe in your Home?: Yes Lack of Transportation: No Lack of Food: Never True Current Housing: I Have Housing Concerned About Future Housing: No Difficulty Paying Gas/Electric Bills: No Difficulty Paying for Meds: No Currently Unemployed: No Education: Bachelor's Degree Difficulty w/ Childcare or Family Care: No Spiritual care concerns: No Meds Home Medications and Allergies Home Medications ?Medication ?Instructions ?Recorded ?Confirmed ?Type aspirin 81 mg capsule 81 mg PO DAILY 05/15/24 05/15/24 History carvedilol 6.25 mg tablet 6.25 mg PO Q12H 05/15/24 05/15/24 History lisinopril 10 mg tablet 10 mg PO DAILY 05/15/24 05/15/24 History lorazepam 0.5 mg tablet 0.5 mg PO PRN PRN anxiety 05/15/24 05/15/24 History multivitamin (Daily Multi-Vitamin 1 tablet PO DAILY 05/15/24 05/15/24 History tablet) rosuvastatin 10 mg tablet 10 mg PO DAILY 05/15/24 05/15/24 History Allergies Allergy/AdvReac Type Severity Reaction Status Date / Time No Known Allergies Allergy Verified 05/14/24 23:30 Vital Signs Vital Signs - 24 hr 05/14/24 23:26 05/14/24 23:59 05/15/24 00:15 Temperature 98.3 F 98.1 F Pulse Rate 104 H 102 H 106 H Respiratory Rate 15 22 H Blood Pressure 154/74 H 148/70 H Pulse Oximetry 97 96 Oxygen Delivery Room Air 05/15/24 00:16 05/15/24 01:31 05/15/24 02:01 Temperature 97.8 F Pulse Rate 104 H 107 H Respiratory Rate 22 H 18 Blood Pressure 145/61 H 134/98 H Pulse Oximetry 100 97 95 Oxygen Delivery Room Air 05/15/24 03:16 05/15/24 03:31 05/15/24 03:46 Temperature Pulse Rate 102 H 100 99 Respiratory Rate 24 H 18 17 Blood Pressure 130/103 H 129/60 143/62 H Pulse Oximetry 97 96 93 Oxygen Delivery 05/15/24 04:01 05/15/24 04:16 05/15/24 04:30 Temperature Pulse Rate 99 100 100 Respiratory Rate 21 H 20 17 Blood Pressure 122/72 139/60 Pulse Oximetry Oxygen Delivery Exam Narrative: GENERAL: Elderly and frail but not any acute distress HEAD: [Normocephalic, atraumatic.] EYES: [PERRLA and EOMI.] ENT: Nares clear, no rhinorrhea or epistaxis. Mucous membranes moist. NECK: Supple. CHEST: [Clear to auscultation. No respiratory distress.] HEART: [Regular rate and rhythm]. No murmur heard. [Normal peripheral pulses.] ABDOMEN: [Soft, nondistended], [nontender], [No rigidity or guarding] EXTREMITIES: Normal range of motion. 1+ pitting edema bilaterally, tenderness to the right hip but no step-offs or deformity. Full range of motion. SKIN: Warm, dry, no rash. NEURO: [No focal deficits]. Alert and oriented [x3.] Patient seems confused, Normal strength and sensation without asymmetry in the arms, legs or face. PSYCH: [Normal mood and affect.] H&P: Results Labs Labs: Short CBC 05/15/24 Range/Units 00:13 WBC 7.8 (4.5-10.0) K/mm3 Hgb 10.3 L (12.0-15.0) g/dL Hct 31.8 L (37.0-47.0) % Plt Count 362 (150-375) k/mm3 [facility] 05/15/24 00:13 Sodium 142 Potassium 3.9 Chloride 108 H Carbon Dioxide 23 BUN 23 H Creatinine 1.18 H Glucose 83 Calcium 9.9 Cardiac Enzymes 05/15/24 Range/Units 00:13 Total Creatine Kinase 172 H (30-135) U/L Liver Function 05/15/24 Range/Units 00:13 Total Bilirubin 0.7 (0.2-1.3) mg/dL AST 24 (14-36) U/L ALT 15 (6-35) U/L Alkaline Phosphatase 76 (38-126) U/L Albumin 3.8 (3.5-5.1) g/dL Urine 05/15/24 Range/Units 00:13 Urine Color Yellow (Yellow) Urine Appearance Clear (Clear) Urine pH 5.5 (5.0-9.0) Ur Specific [place] 1.025 (1.001-1.035) Urine Protein Trace (Negative) mg/dL Urine Glucose (UA) Negative (Negative) mg/dL Assessment and Plan Assessment and plan (1) Confusion: Code(s): R41.0 - Disorientation, unspecified Status: Acute (2) Falls frequently: Code(s): R29.6 - Repeated falls Status: Acute Plan This is a 79-year-old female who presents to the ED for evaluation of multiple falls over the past week associated confusion. Patient lives alone. Granddaughter visits often. For last week she has been intermittently confused and frequently falling. No obvious injury reported by the patient except for some pain in her right hip. On ED evaluation she was mildly tachycardic afebrile vitals were otherwise stable. No signs of head trauma. Patient continued to have intermittent confusion. Otherwise neurological examination was unremarkable. She has a history of hypertension and hyperlipidemia. Chest x-ray showed some cardiomegaly with no infiltrates effusion or pneumothorax. Hip x-ray showed severe osteoarthritis of the right hip with [id number] articulation with no acute fracture dislocation. Laboratory workup revealed no leukocytosis mild anemia with hemoglobin of 10.3. Normal platelet. Coagulation panel was normal. BUN creatinine slightly elevated. Baseline unknown. Electrolytes normal lactic acid normal LFTs were normal CPK is mildly elevated at 172. Urinalysis was negative for infection. Head CT showed no acute intracranial findings. Recurrent fall PT OT to see Altered mental status further evaluate with MRI brain. UDS came back negative. Patient noted to be on lorazepam p.r.n.. Will hold this. Check EEG. Neurology not available for consult. She might have underlying dementia Hypertension Hyperlipidemia Mild anemia CKD stage 3 DVT prophylaxis Lovenox Code status code Hospitalist [facility] Advance Care Plan I have confirmed that the patient's Advanced Care Plan is present, code status is documented, or surrogate decision maker is listed in patient medical record.: Yes Medication Reconciliation I have utilized all available resources to obtain, update and review the patients current medications (includes all prescriptions, OTC, herbals, cannabis, and nutritional supplements).: Yes
[2024-05-15 08:50] LABS: Folic Acid > 20.0 ng/mL (2.76->20)
[2024-05-15] MEDS: MULTIVITAMINS THERAPEUTIC TAB (*BKC) 1 TABLET PO (09:23)
[2024-05-15] MEDS: ROSUVASTATIN 10 MG TABLET PO (09:23)
[2024-05-15] MEDS: lisinopriL 10 MG TABLET PO (09:24)
[2024-05-15] MEDS: carvediloL 6.25 MG TABLET PO ×2 (09:24→20:30)
[2024-05-15 14:10] LABS: Iron 21 ug/dL (37-170)
[2024-05-15 14:20] LABS: Percent Iron Saturation 11 % (20-50)
[2024-05-15] MEDS: ACETAMINOPHEN 325 MG TABLET 650 MG PO ×2 (17:38→20:33)
[2024-05-15 17:39] LABS: Vitamin D 25 Hydroxy 37.8 ng/mL
[2024-05-16] MEDS: ACETAMINOPHEN 325 MG TABLET 650 MG PO ×2 (00:15→21:41)
[2024-05-16 04:22] VITALS: BP 120/61; PULSE 86; RESP 20; TEMP 36.6; O2SAT 96
[2024-05-16 06:25] LABS: Alanine Aminotransferase 15 U/L (6-35); Albumin Level 3.4 g/dL (3.5-5.1); Alkaline Phosphatase 68 U/L (38-126); Anion Gap 11 mmol/L (4-12); Aspartate Amino Transferase 23 U/L (14-36); Bilirubin,Total 0.6 mg/dL (0.2-1.3); Blood Urea Nitrogen 20 mg/dL (7-17); Calcium 9.3 mg/dL (8.4-10.2); Carbon Dioxide 21 mmol/L (22-30); Chloride 111 mmol/L (98-107); Estimated CRCL calculation 35 ml/min; Estimated Glomerular Filt Rate 44; Glucose 81 mg/dL (65-110); Magnesium 1.3 mg/dL (1.6-2.3); Potassium 3.4 mmol/L (3.4-5.0); Sodium 143 mmol/L (137-145)
[2024-05-16 06:30] LABS: Basophils Percent Auto 0.3 % (0.2-1.2); Eosinophils Absolute Auto 0.3 K/mm3 (0-0.3); Eosinophils Percent Auto 5.5 % (0-4.4); Hematocrit 30.3 % (37.0-47.0); Hemoglobin 9.8 g/dL (12.0-15.0); Immature Granulocyte Absolute 0.02 K/mm3 (0.00-0.031); Immature Granulocyte Percent A 0.3 % (0-0.5); Lymphocytes Absolute Auto 1.58 K/mm3 (0.9-3.2); Lymphocytes Percent Auto 25.5 % (18.3-44.2); Mean Corpuscular HGB Conc 32.3 g/dl (32-36); Mean Corpuscular Hemoglobin 29.5 pg (26-34); Mean Corpuscular Volume 91.3 fl (80-100); Mean Platelet Volume 9.9 fl (7.4-10.4); Monocytes Absolute Auto 0.7 K/mm3 (0.1-0.6); Monocytes Percent Auto 10.6 % (2.6-8.5); Neutrophils Absolute Auto 3.6 K/mm3 (1.3-6.7); Neutrophils Percent Auto 57.8 % (45.5-73.1); Platelet Count Result 350 k/mm3 (150-375); Red Blood Count 3.32 M/mm3 (4.2-5.4); Red Cell Distribution Width 14.2 % (11.5-14.5); White Blood Count 6.2 K/mm3 (4.5-10.0)
--- NOTE | 2024-05-16 07:38 | PC.NURSE ---
Patient agitated this morning with staff stating she wants to leave the hospital and return home. Patient is refusing to lay back down in bed, sitting up on the side of the bed. Bed alarm is on at this time. Patient refused education on fall risk prevention and refusing care at this time.
--- NOTE | 2024-05-16 08:56 | PC.NURSE ---
Informed Dr. Gallagher of patient's agitation and refusal of care. Met with patient at bedside with doctor, patient refused to be assessed by doctor and would not elaborate on concerns with doctor present. Patient still sitting up on side of bed with bed alarm on. Patient currently has no IV access and is refusing placement for another one. Dr. Gallagher aware and is ok with leaving IV out. Dr. Gallagher wants nephrology social worker consult for patient's agitation and refusal of care, no further orders.
[2024-05-16] MEDS: carvediloL 6.25 MG TABLET PO ×2 (09:14→21:43)
[2024-05-16] MEDS: ROSUVASTATIN 10 MG TABLET PO (09:14)
[2024-05-16] MEDS: LORazepam (*CRX) 0.5 MG TABLET PO ×2 (09:14→21:41)
[2024-05-16] MEDS: ASPIRIN 81 MG CHEWABLE TABLET PO (09:14)
[2024-05-16] MEDS: lisinopriL 10 MG TABLET PO (09:14)
[2024-05-16] MEDS: MULTIVITAMINS THERAPEUTIC TAB (*BKC) 1 TABLET PO (09:14)
--- NOTE | 2024-05-16 12:29 | PM.IMPN ---
Progress Note: A&P Assessment and Plan (1) Confusion: Code(s): R41.0 - Disorientation, unspecified Status: Acute Assessment and Plan: Workup negative so far. 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 (2) Falls frequently: Code(s): R29.6 - Repeated falls Status: Acute Assessment and Plan: Physical therapy and public health social worker to see patient Plan This is a 79-year-old female who presents to the ED for evaluation of multiple falls over the past week associated confusion. Patient lives alone. Granddaughter visits often. For last week she has been intermittently confused and frequently falling. No obvious injury reported by the patient except for some pain in her right hip. On ED evaluation she was mildly tachycardic afebrile vitals were otherwise stable. No signs of head trauma. Patient continued to have intermittent confusion. Otherwise neurological examination was unremarkable. She has a history of hypertension and hyperlipidemia. Chest x-ray showed some cardiomegaly with no infiltrates effusion or pneumothorax. Hip x-ray showed severe osteoarthritis of the right hip with [id number]-[id number] articulation with no acute fracture dislocation. Laboratory workup revealed no leukocytosis mild anemia with hemoglobin of 10.3. Normal platelet. Coagulation panel was normal. BUN creatinine slightly elevated. Baseline unknown. Electrolytes normal lactic acid normal LFTs were normal CPK is mildly elevated at 172. Urinalysis was negative for infection. Head CT showed no acute intracranial findings. Recurrent fall PT OT to see Altered mental status further evaluate with MRI brain. UDS came back negative. Patient noted to be on lorazepam p.r.n.. Will hold this. Check EEG. Neurology not available for consult. She might have underlying dementia Hypertension Hyperlipidemia Mild anemia CKD stage 3 DVT prophylaxis Lovenox Code status code Subjective Date/time seen: 05/16/24 12:29 Interval history: patient was seen during the morning rounds today. No new overnight complaints. No shortness of breath or chest pain. No abdominal pain, nausea, vomiting. Mood stable. Review of Systems Review of Systems: - CONSTITUTIONAL: Denies weight loss, fever and chills. - HEENT: Denies changes in vision and hearing - RESPIRATORY: Denies SOB and cough. - CV: Denies palpitations and CP. - GI: Denies abdominal pain, nausea, vomiting and diarrhea. - : Denies dysuria and urinary frequency. - MSK: Denies myalgia and joint pain. - SKIN: Denies rash and pruritus. - NEUROLOGICAL: Denies headache and syncope. Patient reports recurrent falls - PSYCHIATRIC: Denies recent changes in mood. Denies anxiety and depression. Exam Narrative: GENERAL: Elderly and frail but not any acute distress HEAD: [Normocephalic, atraumatic.] EYES: [PERRLA and EOMI.] ENT: Nares clear, no rhinorrhea or epistaxis. Mucous membranes moist. NECK: Supple. CHEST: [Clear to auscultation. No respiratory distress.] HEART: [Regular rate and rhythm]. No murmur heard. [Normal peripheral pulses.] ABDOMEN: [Soft, nondistended], [nontender], [No rigidity or guarding] EXTREMITIES: Normal range of motion. 1+ pitting edema bilaterally, tenderness to the right hip but no step-offs or deformity. Full range of motion. SKIN: Warm, dry, no rash. NEURO: [No focal deficits]. Alert and oriented [x3.] Patient seems confused, Normal strength and sensation without asymmetry in the arms, legs or face. PSYCH: [Normal mood and affect.] Objective Data Vital Signs Vital Signs: Vital Signs - 24 hr 05/15/24 14:00 05/15/24 20:30 05/15/24 21:39 Temperature 36.7 C 36.4 C Pulse Rate 88 82 92 Respiratory Rate 18 18 Blood Pressure 144/41 H 133/68 Pulse Oximetry 99 94 05/16/24 04:22 Temperature 36.6 C Pulse Rate 86 Respiratory Rate 20 Blood Pressure 120/61 Pulse Oximetry 96 Intake/Output Intake/Output: Intake & Output 05/13/24 05/14/24 05/15/24 05/16/24 23:59 23:59 23:59 23:59 Intake Total 1270 340 Output Total 100 Balance -100 1270 340 Meds/Results Medications: Active Medications Generic Name Dose Route Start Last Admin Trade Name Freq PRN Reason Stop Dose Admin Acetaminophen 650 mg 05/15/24 03:49 05/16/24 00:15 Acetaminophen 325 Mg Tablet PO 650 mg Q4H PRN Administration Mild Pain (1-3) or Fever Aspirin 81 mg 05/16/24 08:00 05/16/24 09:14 Aspirin 81 Mg Chewable Tablet PO 81 mg DAILY@0800 ALEIDA Administration Carvedilol 6.25 mg 05/15/24 09:00 05/16/24 09:14 Carvedilol 6.25 Mg Tablet PO 6.25 mg Q12HR ALEIDA Administration Enoxaparin Sodium 40 mg 05/15/24 13:00 05/16/24 09:15 Enoxaparin 40 Mg/0.4 Ml Syringe SUB-Q Not Given DAILY ALEIDA Lisinopril 10 mg 05/15/24 09:00 05/16/24 09:14 Lisinopril 10 Mg Tablet PO 10 mg DAILY ALEIDA Administration Lorazepam 0.5 mg 05/15/24 17:29 05/16/24 09:14 Lorazepam (*Crx) 0.5 Mg Tablet PO 0.5 mg Q6H PRN Administration anxiety Multivitamins Therapeutic 1 tablet 05/15/24 09:00 05/16/24 09:14 Multivitamins Therapeutic Tab (*Bkc) PO 1 tablet DAILY ALEIDA Administration Rosuvastatin Calcium 10 mg 05/15/24 09:00 05/16/24 09:14 Rosuvastatin 10 Mg Tablet PO 10 mg DAILY ALEIDA Administration Radiology Results: ITS Impressions Head CT 05/15/24 00:29 Impression: No acute intracranial hemorrhage or suspicious mass effect. Chest X-Ray 05/15/24 07:52 Impression: Clear lungs. Cardiomegaly. Hip/Pelvis X-Ray 05/15/24 07:52 Impression: Severe osteoarthritis of the right hip joint, as detailed above. No acute fracture or dislocation seen. Brain MRI 05/16/24 12:10 IMPRESSION: 1. Normal aging brain with mild scattered white matter T2 hyperintensity consistent with chronic small vessel ischemic disease. No acute intracranial process. Labs Labs: Laboratory Results - last 24 hr 05/15/24 05/16/24 13:04 05:53 WBC 6.2 RBC 3.32 L Hgb 9.8 L Hct 30.3 L MCV 91.3 MCH 29.5 MCHC 32.3 RDW 14.2 Plt Count 350 MPV 9.9 Immature Gran % (Auto) 0.3 Neut % (Auto) 57.8 Lymph % (Auto) 25.5 [place] % (Auto) 10.6 H Eos % (Auto) 5.5 H Baso % (Auto) 0.3 Lymph # (Auto) 1.58 [place] # (Auto) 0.7 H Eos # (Auto) 0.3 Baso # (Auto) 0.0 Abs Immat Gran (auto) 0.02 Absolute Neuts (auto) 3.6 Absolute Nucleated RBC 0.000 Nucleated RBC % 0.0 Sodium 143 Potassium 3.4 Chloride 111 H Carbon Dioxide 21 L Anion Gap 11 BUN 20 H Creatinine 1.19 H Estim Creat Clear Calc 35 Estimated GFR 44 L Glucose 81 Calcium 9.3 Magnesium 1.3 L Iron 21 L TIBC 189 L % Saturation 11 L Ferritin 110.00 Total Bilirubin 0.6 AST 23 ALT 15 Alkaline Phosphatase 68 Total Protein 6.0 L Albumin 3.4 L Vitamin D 25-Hydroxy 37.8 TSH (Reflex) 2.400
[2024-05-16 13:08] LABS: Ammonia < 9 umol/L (9-30)
[2024-05-16 14:00] VITALS: BP 98/81; PULSE 50; RESP 18; TEMP 36.2; O2SAT 96
[2024-05-16 22:00] VITALS: BP 96/68; PULSE 75; RESP 18; TEMP 36.4; O2SAT 96
[2024-05-17 04:17] VITALS: BP 134/57; PULSE 89; RESP 18; TEMP 36.4; O2SAT 97
[2024-05-17] MEDS: ACETAMINOPHEN 325 MG TABLET 650 MG PO ×3 (05:35→20:36)
[2024-05-17] MEDS: LORazepam (*CRX) 0.5 MG TABLET PO (08:28)
[2024-05-17] MEDS: ENOXAPARIN 40 MG/0.4 ML SYRINGE SUB-Q (08:28)
[2024-05-17] MEDS: MULTIVITAMINS THERAPEUTIC TAB (*BKC) 1 TABLET PO (08:28)
[2024-05-17] MEDS: lisinopriL 10 MG TABLET PO (08:28)
[2024-05-17] MEDS: carvediloL 6.25 MG TABLET PO ×2 (08:28→20:36)
[2024-05-17] MEDS: ROSUVASTATIN 10 MG TABLET PO (08:28)
[2024-05-17] MEDS: ASPIRIN 81 MG CHEWABLE TABLET PO (08:28)
--- NOTE | 2024-05-17 12:04 | PM.IMPN ---
Progress Note: A&P Assessment and Plan (1) Confusion: Code(s): R41.0 - Disorientation, unspecified Status: Acute Assessment and Plan: Workup negative so far. 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 (2) Falls frequently: Code(s): R29.6 - Repeated falls Status: Acute Assessment and Plan: Physical therapy and social worker psychiatric to see patient Plan This is a 79-year-old female who presents to the ED for evaluation of multiple falls over the past week associated confusion. Patient lives alone. Granddaughter visits often. For last week she has been intermittently confused and frequently falling. No obvious injury reported by the patient except for some pain in her right hip. On ED evaluation she was mildly tachycardic afebrile vitals were otherwise stable. No signs of head trauma. Patient continued to have intermittent confusion. Otherwise neurological examination was unremarkable. She has a history of hypertension and hyperlipidemia. Chest x-ray showed some cardiomegaly with no infiltrates effusion or pneumothorax. Hip x-ray showed severe osteoarthritis of the right hip with [id number] articulation with no acute fracture dislocation. Laboratory workup revealed no leukocytosis mild anemia with hemoglobin of 10.3. Normal platelet. Coagulation panel was normal. BUN creatinine slightly elevated. Baseline unknown. Electrolytes normal lactic acid normal LFTs were normal CPK is mildly elevated at 172. Urinalysis was negative for infection. Head CT showed no acute intracranial findings. Recurrent fall PT OT to see Altered mental status further evaluate with MRI brain. UDS came back negative. Patient noted to be on lorazepam p.r.n.. Will hold this. Check EEG. Neurology not available for consult. She might have underlying dementia Hypertension Hyperlipidemia Mild anemia CKD stage 3 DVT prophylaxis Lovenox Code status code Subjective Date/time seen: 05/17/24 12:04 Interval history: patient was seen during the morning rounds today. No shortness of breath or chest pain. No abdominal pain, nausea, vomiting. Mood stable. Review of Systems Review of Systems: - CONSTITUTIONAL: Denies weight loss, fever and chills. - HEENT: Denies changes in vision and hearing - RESPIRATORY: Denies SOB and cough. - CV: Denies palpitations and CP. - GI: Denies abdominal pain, nausea, vomiting and diarrhea. - : Denies dysuria and urinary frequency. - MSK: Denies myalgia and joint pain. - SKIN: Denies rash and pruritus. - NEUROLOGICAL: Denies headache and syncope. Patient reports recurrent falls - PSYCHIATRIC: Denies recent changes in mood. Denies anxiety and depression. Exam Narrative: GENERAL: Elderly and frail but not any acute distress HEAD: [Normocephalic, atraumatic.] EYES: [PERRLA and EOMI.] ENT: Nares clear, no rhinorrhea or epistaxis. Mucous membranes moist. NECK: Supple. CHEST: [Clear to auscultation. No respiratory distress.] HEART: [Regular rate and rhythm]. No murmur heard. [Normal peripheral pulses.] ABDOMEN: [Soft, nondistended], [nontender], [No rigidity or guarding] EXTREMITIES: Normal range of motion. 1+ pitting edema bilaterally, tenderness to the right hip but no step-offs or deformity. Full range of motion. SKIN: Warm, dry, no rash. NEURO: [No focal deficits]. Alert and oriented [x3.] Patient seems confused, Normal strength and sensation without asymmetry in the arms, legs or face. PSYCH: [Normal mood and affect.] Objective Data Vital Signs Vital Signs: Vital Signs - 24 hr 05/16/24 14:00 05/16/24 22:00 05/17/24 04:17 Temperature 36.2 C L 36.4 C 36.4 C Pulse Rate 50 L 75 89 Respiratory Rate 18 18 18 Blood Pressure 98/81 L 96/68 L 134/57 L Pulse Oximetry 96 96 97 Oxygen Delivery 05/17/24 08:00 Temperature Pulse Rate Respiratory Rate Blood Pressure Pulse Oximetry Oxygen Delivery Room Air Intake/Output Intake/Output: Intake & Output 05/14/24 05/15/24 05/16/24 05/17/24 23:59 23:59 23:59 23:59 Intake Total 1270 840 370 Output Total 100 Balance -100 1270 840 370 Meds/Results Medications: Active Medications Generic Name Dose Route Start Last Admin Trade Name Freq PRN Reason Stop Dose Admin Acetaminophen 650 mg 05/15/24 03:49 05/17/24 05:35 Acetaminophen 325 Mg Tablet PO 650 mg Q4H PRN Administration Mild Pain (1-3) or Fever Aspirin 81 mg 05/16/24 08:00 05/17/24 08:28 Aspirin 81 Mg Chewable Tablet PO 81 mg DAILY@0800 ALEIDA Administration Carvedilol 6.25 mg 05/15/24 09:00 05/17/24 08:28 Carvedilol 6.25 Mg Tablet PO 6.25 mg Q12HR ALEIDA Administration Enoxaparin Sodium 40 mg 05/15/24 13:00 05/17/24 08:28 Enoxaparin 40 Mg/0.4 Ml Syringe SUB-Q 40 mg DAILY ALEIDA Administration Lisinopril 10 mg 05/15/24 09:00 05/17/24 08:28 Lisinopril 10 Mg Tablet PO 10 mg DAILY ALEIDA Administration Lorazepam 0.5 mg 05/15/24 17:29 05/17/24 08:28 Lorazepam (*Crx) 0.5 Mg Tablet PO 0.5 mg Q6H PRN Administration anxiety Multivitamins Therapeutic 1 tablet 05/15/24 09:00 05/17/24 08:28 Multivitamins Therapeutic Tab (*Bkc) PO 1 tablet DAILY ALEIDA Administration Rosuvastatin Calcium 10 mg 05/15/24 09:00 05/17/24 08:28 Rosuvastatin 10 Mg Tablet PO 10 mg DAILY ALEIDA Administration Radiology Results: ITS Impressions Head CT 05/15/24 00:29 Impression: No acute intracranial hemorrhage or suspicious mass effect. Chest X-Ray 05/15/24 07:52 Impression: Clear lungs. Cardiomegaly. Hip/Pelvis X-Ray 05/15/24 07:52 Impression: Severe osteoarthritis of the right hip joint, as detailed above. No acute fracture or dislocation seen. Brain MRI 05/16/24 12:10 IMPRESSION: 1. Normal aging brain with mild scattered white matter T2 hyperintensity consistent with chronic small vessel ischemic disease. No acute intracranial process. Labs Labs: Laboratory Results - last 24 hr 05/16/24 12:51 Ammonia < 9 L
[2024-05-17 15:07] VITALS: BP 142/96; PULSE 93; RESP 18; TEMP 36.3; O2SAT 100
--- NOTE | 2024-05-17 15:22 | PCPTNOTE ---
Attempted to see patient this afternoon for PT. Patient sleeping when I entered room and became very emotional when she woke up. Patient continued to cry intermittently after being reassured and oriented to her surroundings. Patient refused participating in PT. RN aware and states patient has been more emotional today. PT will continue to follow per plan of care.
[2024-05-17 20:36] VITALS: PULSE 83
[2024-05-17 21:56] VITALS: BP 145/85; PULSE 78; RESP 16; TEMP 36.5; O2SAT 95
[2024-05-18 06:00] VITALS: BP 143/67; PULSE 95; RESP 16; TEMP 35.9; O2SAT 97
[2024-05-18] MEDS: MAGNESIUM OXIDE 400 MG TABLET PO (09:03)
[2024-05-18] MEDS: carvediloL 6.25 MG TABLET PO ×2 (09:03→20:48)
[2024-05-18] MEDS: ASPIRIN 81 MG CHEWABLE TABLET PO (09:03)
[2024-05-18] MEDS: ROSUVASTATIN 10 MG TABLET PO (09:03)
[2024-05-18] MEDS: MULTIVITAMINS THERAPEUTIC TAB (*BKC) 1 TABLET PO (09:03)
[2024-05-18] MEDS: lisinopriL 10 MG TABLET PO (09:03)
[2024-05-18] MEDS: ENOXAPARIN 40 MG/0.4 ML SYRINGE SUB-Q (09:03)
--- NOTE | 2024-05-18 09:44 | P.PNIM_ITS ---
Progress Note: A&P Assessment and Plan (1) Confusion: Code(s): R41.0 - Disorientation, unspecified Status: Acute Assessment and Plan: Workup negative so far. 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 (2) Falls frequently: Code(s): R29.6 - Repeated falls Status: Acute Assessment and Plan: Physical therapy and licensed master social worker to see patient Plan This is a 79-year-old female who presents to the ED for evaluation of multiple falls over the past week associated confusion. Patient lives alone. Granddaughter visits often. For last week she has been intermittently confused and frequently falling. No obvious injury reported by the patient except for some pain in her right hip. On ED evaluation she was mildly tachycardic afebrile vitals were otherwise stable. No signs of head trauma. Patient continued to have intermittent confusion. Otherwise neurological examination was unremarkable. She has a history of hypertension and hyperlipidemia. Chest x-ray showed some cardiomegaly with no infiltrates effusion or pneumothorax. Hip x-ray showed severe osteoarthritis of the right hip with [id number] articulation with no acute fracture dislocation. Laboratory workup revealed no leukocytosis mild anemia with hemoglobin of 10.3. Normal platelet. Coagulation panel was normal. BUN creatinine slightly elevated. Baseline unknown. Electrolytes normal lactic acid normal LFTs were normal CPK is mildly elevated at 172. Urinalysis was negative for infection. Head CT showed no acute intracranial findings. Recurrent fall PT OT to see Altered mental status further evaluate with MRI brain. UDS came back negative. Patient noted to be on lorazepam p.r.n.. Will hold this. Check EEG. Neurology not available for consult. She might have underlying dementia Hypertension Hyperlipidemia Mild anemia CKD stage 3 DVT prophylaxis Lovenox Code status code Subjective Date/time seen: 05/18/24 09:44 Interval history: patient was seen during the morning rounds today. Patient was admitted for frequent falls, confusion and fci placement. No new overnight complaints. No shortness of breath or chest pain. No abdominal pain, nausea, vomiting. Mood stable. Review of Systems Review of Systems: - CONSTITUTIONAL: Denies weight loss, fe dorothea and chills. - HEENT: Denies changes in vision and he aring - RESPIRATORY: Denies SOB and cough. - CV: Denies palpitations and CP. - GI: Denies abdominal pain, nausea, vom iting and diarrhea. - : Denies dysuria and urinary frequen cy. - MSK: Denies myalgia and joint pain. - SKIN: Denies rash and pruritus. - NEUROLOGICAL: Denies headache and sync ope. Patient reports recurrent falls - PSYCHIATRIC: Denies recent changes in mood. Denies anxiety and depression. Exam Narrative: GENERAL: Elderly and frail but not any acute distress HEAD: [Normocephalic, atraumatic.] EYES: [PERRLA and EOMI.] ENT: Nares clear, no rhinorrhea or epistaxis. Mucous membranes moist. NECK: Supple. CHEST: [Clear to auscultation. No respiratory distress.] HEART: [Regular rate and rhythm]. No murmur heard. [Normal peripheral pulses.] ABDOMEN: [Soft, nondistended], [nontender], [No rigidity or guarding] EXTREMITIES: Normal range of motion. 1+ pitting edema bilaterally, tenderness to the right hip but no step-offs or deformity. Full range of motion. SKIN: Warm, dry, no rash. NEURO: [No focal deficits]. Alert and oriented [x3.] Patient seems confused, Normal strength and sensation without asymmetry in the arms, legs or face. PSYCH: [Normal mood and affect.] Objective Data Vital Signs Vital Signs: Vital Signs - 24 hr 05/17/24 15:07 05/17/24 20:00 05/17/24 20:36 Temperature 36.3 C L Pulse Rate 93 83 Respiratory Rate 18 Blood Pressure 142/96 H Pulse Oximetry 100 Oxygen Delivery Room Air 05/17/24 21:56 05/18/24 06:00 05/18/24 07:58 Temperature 36.5 C 35.9 C L Pulse Rate 78 95 Respiratory Rate 16 16 Blood Pressure 145/85 H 143/67 H Pulse Oximetry 95 97 Oxygen Delivery Room Air Intake/Output Intake/Output: Intake & Output 05/15/24 05/16/24 05/17/24 05/18/24 23:59 23:59 23:59 23:59 Intake Total 1270 840 420 550 Balance 1270 840 420 550 Meds/Results Medications: Active Medications Generic Name Dose Route Start Last Admin Trade Name Freq PRN Reason Stop Dose Admin Acetaminophen 650 mg 05/15/24 03:49 05/17/24 20:36 Acetaminophen 325 Mg Tablet PO 650 mg Q4H PRN Administration Mild Pain (1-3) or Fever Aspirin 81 mg 05/16/24 08:00 05/18/24 09:03 Aspirin 81 Mg Chewable Tablet PO 81 mg DAILY@0800 [facility] Administration Carvedilol 6.25 mg 05/15/24 09:00 05/18/24 09:03 Carvedilol 6.25 Mg Tablet PO 6.25 mg Q12HR ALEIDA Administration Enoxaparin Sodium 40 mg 05/15/24 13:00 05/18/24 09:03 Enoxaparin 40 Mg/0.4 Ml Syringe SUB-Q 40 mg DAILY ALEIDA Administration Lisinopril 10 mg 05/15/24 09:00 05/18/24 09:03 Lisinopril 10 Mg Tablet PO 10 mg DAILY ALEIDA Administration Lorazepam 0.5 mg 05/15/24 17:29 05/17/24 08:28 Lorazepam (*Crx) 0.5 Mg Tablet PO 0.5 mg Q6H PRN Administration anxiety Magnesium Oxide 400 mg 05/18/24 09:00 05/18/24 09:03 Magnesium Oxide 400 Mg Tablet PO 400 mg DAILY ALEIDA Administration Multivitamins Therapeutic 1 tablet 05/15/24 09:00 05/18/24 09:03 Multivitamins Therapeutic Tab (*Bkc) PO 1 tablet DAILY [facility] Administration Rosuvastatin Calcium 10 mg 05/15/24 09:00 05/18/24 09:03 Rosuvastatin 10 Mg Tablet PO 10 mg DAILY ALEIDA Administration Radiology Results: ITS Impressions Head CT 05/15/24 00:29 Impression: No acute intracranial hemorrhage or suspicious mass effect. Chest X-Ray 05/15/24 07:52 Impression: Clear lungs. Cardiomegaly. Hip/Pelvis X-Ray 05/15/24 07:52 Impression: Severe osteoarthritis of the right hip joint, as detailed above. No acute fracture or dislocation seen. Brain MRI 05/16/24 12:10 IMPRESSION: 1. Normal aging brain with mild scattered white matter T2 hyperintensity consistent with chronic small vessel ischemic disease. No acute intracranial process.
--- NOTE | 2024-05-18 12:46 | PCOTNOTE ---
Attempted to see patient this pm, however patient refused. No, they already made me mad. Pt shared frustration about being told she can leave and now she can't. Pt stated, I'm just not happy with this place. Pt still shows signs of confusion stating there were girls outside (pointing out window) being very loud, saying they must have been really loud. Patient called nurses station stating therapist threw phone on the floor and left, however phone was right next to patient in bed.
[2024-05-18] MEDS: LORazepam (*CRX) 0.5 MG TABLET PO (15:16)
[2024-05-18] MEDS: ACETAMINOPHEN 325 MG TABLET 650 MG PO ×2 (15:16→20:49)
[2024-05-18 15:47] VITALS: BP 112/55; PULSE 85; TEMP 36.7; O2SAT 97
[2024-05-18 20:48] VITALS: PULSE 85
[2024-05-18 22:00] VITALS: BP 134/64; PULSE 73; RESP 16; TEMP 36.9; O2SAT 97
[2024-05-19 06:00] VITALS: BP 153/84; PULSE 77; RESP 16; TEMP 36.2; O2SAT 97
[2024-05-19 07:00] LABS: Magnesium 1.4 mg/dL (1.6-2.3)
[2024-05-19] MEDS: lisinopriL 10 MG TABLET PO (08:17)
[2024-05-19] MEDS: MULTIVITAMINS THERAPEUTIC TAB (*BKC) 1 TABLET PO (08:17)
[2024-05-19] MEDS: ASPIRIN 81 MG CHEWABLE TABLET PO (08:17)
[2024-05-19] MEDS: ROSUVASTATIN 10 MG TABLET PO (08:17)
[2024-05-19] MEDS: MAGNESIUM OXIDE 400 MG TABLET PO (08:17)
[2024-05-19] MEDS: carvediloL 6.25 MG TABLET PO (08:18)
[2024-05-19] MEDS: ENOXAPARIN 40 MG/0.4 ML SYRINGE SUB-Q (08:25)
--- NOTE | 2024-05-19 12:21 | PM.DS ---
DS: Admitting Diagnosis Discharge Date 05/19/2023 Admitting Diagnosis Fall confusion DS: Discharge Diagnosis Discharge Diagnosis (1) Confusion: Code(s): R41.0 - Disorientation, unspecified Status: Acute Assessment and Plan: Workup negative so far. 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 (2) Falls frequently: Code(s): R29.6 - Repeated falls Status: Acute Assessment and Plan: Physical therapy and health and social care teacher to see patient DS: Summary Hospital Course Hospital Course: This is a 79-year-old female who presents to the ED for evaluation of multiple falls over the past week associated confusion. Patient lives alone. Granddaughter visits often. For last week she has been intermittently confused and frequently falling. No obvious injury reported by the patient except for some pain in her right hip. On ED evaluation she was mildly tachycardic afebrile vitals were otherwise stable. No signs of head trauma. Patient continued to have intermittent confusion. Otherwise neurological examination was unremarkable. She has a history of hypertension and hyperlipidemia. Chest x-ray showed some cardiomegaly with no infiltrates effusion or pneumothorax. Hip x-ray showed severe osteoarthritis of the right hip with [id number] articulation with no acute fracture dislocation. Laboratory workup revealed no leukocytosis mild anemia with hemoglobin of 10.3. Normal platelet. Coagulation panel was normal. BUN creatinine slightly elevated. Baseline unknown. Electrolytes normal lactic acid normal LFTs were normal CPK is mildly elevated at 172. Urinalysis was negative for infection. Head CT showed no acute intracranial findings. Recurrent fall PT OT to see Altered mental status further evaluate with MRI brain. UDS came back negative. Patient noted to be on lorazepam p.r.n.. Will hold this. Check EEG. Neurology not available for consult. She might have underlying dementia Hypertension Hyperlipidemia Mild anemia CKD stage 3 pt is medically stable ok to DC today to [facility] Time Spent with Patient Time attestation: Total time spent providing and/or coordinating discharge services:55 minutes on day of dc Exam Narrative: GENERAL: Elderly and frail but not any acute distress HEAD: [Normocephalic, atraumatic.] EYES: [PERRLA and EOMI.] ENT: Nares clear, no rhinorrhea or epistaxis. Mucous membranes moist. NECK: Supple. CHEST: [Clear to auscultation. No respiratory distress.] HEART: [Regular rate and rhythm]. No murmur heard. [Normal peripheral pulses.] ABDOMEN: [Soft, nondistended], [nontender], [No rigidity or guarding] EXTREMITIES: Normal range of motion. 1+ pitting edema bilaterally, tenderness to the right hip but no step-offs or deformity. Full range of motion. SKIN: Warm, dry, no rash. NEURO: [No focal deficits]. Alert and oriented [x3.] Patient seems confused, Normal strength and sensation without asymmetry in the arms, legs or face. PSYCH: [Normal mood and affect.] DS: Data Data Completed and Pending Labs on day of discharge: Labs from last 24 hours 05/19/24 06:14 Magnesium 1.4 L Discharge Plan Discharge Attending physician on discharge: Shanelle Alejandra Discharging Clinician: Shanelle Alejandra Anticipated Discharge Date/Time: 05/19/24 12:22 Patient Disposition: SNF Activity: as tolerated Diet: as tolerated Patient Instructions: Antibiotic Form Patient Language: Mosotho Stand Alone Forms: General Discharge Information Discharge Medications: Continued carvedilol 6.25 mg tablet 6.25 mg PO Q12H aspirin 81 mg capsule 81 mg PO DAILY lisinopril 10 mg tablet 10 mg PO DAILY rosuvastatin 10 mg tablet 10 mg PO DAILY multivitamin [Daily Multi-Vitamin] Tablet 1 tablet PO DAILY lorazepam 0.5 mg tablet 0.5 mg PO PRN PRN (Reason: anxiety) Date of admission: 05/15/24 03:49 Primary Care Provider: UNKNOWN,DOCTOR Admitting Provider: Dalia Lyles Attending physician on admission: Dalia Lyles Condition: Stable
[2024-05-19 14:00] VITALS: BP 137/82; PULSE 78; RESP 18; TEMP 36.4; O2SAT 99
[2024-05-19 16:08] LABS: SARS-CoV-2 RNA PCR Negative (Negative)
--- NOTE | 2024-05-20 10:47 | P.NEURO_ITS ---
Neurology EEG Report General Information Date of Study: 05/15/24 TEST EEG DIAGNOSIS altered mental status CONDITION OF RECORDING awake, drowsy and asleep. EEG NUMBER [id number] CLINICAL HISTORY Patient in pain, unable to relax and asked to stop test early. EEG DESCRIPTION Low to medium voltage 5 to 7 hertz per 2nd theta activities noted with low- voltage 15 to 18 hertz per 2nd beta activity. Bilateral symmetrical sleep activity is noted during sleep with admixture of alpha theta and beta activity evolving into bilateral symmetrical sleep spindles. Photic stimulation not done. Hyperventilation not done. Non paroxysmal. Nonfocal. Nonlateralizing. IMPRESSION No significant abnormalities noted.
== END 2024-05-19 16:45 | DRG 884 ==
LOC: ANHED 05-15 03:52 → ANH3MEDSUR 05-15 04:45
PROVIDERS: Internal Medicine; Admitting Provider General Practice; Emergency Provider Student in an Organized Health Care Education/Training Program; Visit Provider Family Medicine
DX: F03.90 Unspecified dementia, unspecified severity, without behavioral disturbance, psychotic disturbance, mood disturbance, and anxiety (principal); R41.0 Disorientation, unspecified; I12.9 Hypertensive chronic kidney disease with stage 1 through stage 4 chronic kidney disease, or unspecified chronic kidney disease; N18.30 Chronic kidney disease, stage 3 unspecified; E78.5 Hyperlipidemia, unspecified; M16.11 Unilateral primary osteoarthritis, right hip; R29.6 Repeated falls; Z11.52 Encounter for screening for COVID-19; Z79.82 Long term (current) use of aspirin
CPT/HCPCS: 36415; 70450; 70551; 71045; 73502; 80053; 80307; 81001; 82140; 82306; 82550; 82607; 82728; 82746; 83540; 83550; 83605; 83735; 84443; 85025; 85610; 85730; 87635; 93005; 95816; 96360; 97110; 97161; 97166; 99285; A9270; J1650; J7120

== ENCOUNTER 2024-08-13 14:11 | Inpatient (IN) | payer MEDICARE, BC, SELFPAY ==
[2024-08-13] VITALS (15 sets, daily range): BP systolic 117–189; BP diastolic 50–114; PULSE 108–119; RESP 13–23; TEMP 36.3–37.9; O2SAT 87–98; BMI 29.7
--- NOTE | ~2024-08-13 | XR_ITS ---
XR hip BI 2V w AP pelvis Ordering provider: Chano Muhammad III, DO History: . fall . Comparison: May 15, 2024 FINDINGS: BONES: No acute fracture or dislocation. HIP JOINT SPACES: Severe osteoarthritic changes of the right hip. No change from previous examination . Severe left hip osteoarthritic changes with no change from previous examination. SACROILIAC JOINT SPACES/LUMBAR SPINE: The sacroiliac joint spaces are normal. Mild degenerative fonseca es of the visualized lower lumbar spine. PUBIC SYMPHYSIS: Normal. SOFT TISSUES: Normal. IMPRESSION: No acute osseous abnormality of the bilateral hips and pelvis. 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 Reviewed, dictated and finalized at location A.
--- NOTE | ~2024-08-13 | CT_ITS ---
CT brain wo con Ordering provider: Chano Muhammad III DO History: 79 years Female with . altered mental status . Comparison: None. Technique: CT of the head without contrast. Radiation reduction technique utilized.The dose-length pr oduct was 1513.33 mGy-cm. FINDINGS: BRAIN PARENCHYMA AND CSF SPACES: Mild leukoaraiosis and diffuse cortical atrophy. Mild atheromatous d isease. No midline shift, mass effect or hemorrhage. The brain parenchyma and CSF spaces are otherwi se normal. VISUALIZED PARANASAL SINUSES: Well aerated. MASTOIDS: Well aerated. BONES: The bones appear intact. SOFT TISSUES: Visualized nasopharynx is normal. Superficial soft tissues are normal. IMPRESSION: No acute intracranial findings. Reviewed, dictated and finalized at location A.
--- NOTE | ~2024-08-13 | MR_ITS ---
EXAMINATION: MR brain/brain stem wo con DATE: 08/15/2024 13:45 INDICATION: Possible stroke with altered mental status TECHNIQUE: Magnetic resonance imaging (MRI) of the brain and brainstem was performed without intraven ous contrast. Sequences included sagittal and axial T1-weighted SE, axial diffusion-weighted FS SE, a xial T2*-weighted GRE, axial T2-weighted FLAIR, and axial T2-weighted FSE. Apparent diffusion coeffic ient (ADC) maps were created. COMPARISON: None. FINDINGS: There are no areas of restricted diffusion to suggest acute infarction. No intracranial hemorrhage or abnormal intracranial mass lesion. There are scattered areas of nonspecific increased T2-weighted si gnal intensity in the cerebral white matter, predominantly involving the deep and periventricular whi te matter. There are no intraparenchymal signal abnormalities seen on the other pulse sequences. The ventricles are symmetric and normal in size. There are no abnormal extra-axial fluid collections. Tommy w voids are seen in the cerebral arteries on the T2-weighted sequences consistent with their expected patency. Changes of bilateral intraocular lens replacement. Mild mucosal thickening in the bilateral ethmoid sinuses. Visualized orbits and soft tissues are unremarkable. IMPRESSION: 1. Normal aging brain with mild scattered nonspecific white matter T2 hyperintensity consistent with chronic small vessel ischemic disease. No acute intracranial process. Reviewed, dictated and finalized at location A. IMPRESSION: 1. Normal aging brain with mild scattered nonspecific white matter T2 hyperinte nsity consistent with chronic small vessel ischemic disease. No acute intracran ial process.
--- NOTE | ~2024-08-13 | CT_ITS ---
Clinical Indication: Pulmonary embolus CT Scan of the Chest with Contrast: Technique: Contiguous sections were acquired throughout the chest after intravenous administration of 100 cc of Omnipaque 350. Dose reduction technique was used on this scan by utilizing automated expos ure control and iterative reconstruction technique. The dose-length product (DLP) was 630.96 mGy-cm. Findings: There is no evidence of any significant mediastinal, hilar or axillary lymphadenopathy. There is no f illing defect in the pulmonary arterial tree to suggest pulmonary embolus. There is no evidence of ao rtic dissection or aneurysm. No pericardial effusion. Minimal bilateral pleural effusions are present, left greater than right, with minimal bibasilar atel ectatic change. There is possible minimal pulmonary edema versus atelectatic changes in the lungs are otherwise.. Images through the upper abdomen reveal no abnormalities. Impression: No evidence of pulmonary embolus, aortic dissection, or aortic aneurysm. Minimal pleural effusions with probable minimal pulmonary edema versus atelectatic changes in the rosaline gs. Reviewed, dictated and finalized at [facility]. Impression: No evidence of pulmonary embolus, aortic dissection, or aortic aneurysm. Minimal pleural effusions with probable minimal pulmonary edema versus atelecta tic changes in the lungs.
--- NOTE | ~2024-08-13 | XR_ITS ---
XR chest 1V portable 08/13/2024 15:01 Indication: Altered mental status Procedure: AP portable chest Comparison: 05/15/2024 Findings: Heart size normal. No focal air space disease, pulmonary edema, pleural effusion or suspect ed pneumothorax. There are degenerative changes of the shoulders. There is dextroscoliosis. Impression: 1: No acute cardiopulmonary disease. Reviewed, dictated and finalized at location A. Impression: 1: No acute cardiopulmonary disease.
--- NOTE | 2024-08-13 14:22 | ED_ITS ---
HPI - Altered Mental Status General Chief Complaint: Altered Mental Status Stated Complaint: AMS Time Seen by Provider: 08/13/24 14:16 History of Present Illness HPI narrative: Pt brought in by EMS for altered mental status. Pt has been getting more confused lately but now to the point that her grandaughter doesn't think she is safe at home. Granddaughter is TERE. Pt initially seemed alert and oriented to EMS but then it became obvious that she was not capable of making informed decisions so was brought to the ER even though she did not wish to come. Related Data Home Medications ?Medication ?Instructions ?Recorded ?Confirmed ?Last Taken ?Type aspirin 81 mg capsule 81 mg PO DAILY 05/15/24 05/15/24 05/14/24 History carvedilol 6.25 mg tablet 6.25 mg PO Q12H 05/15/24 05/15/24 05/14/24 History lisinopril 10 mg tablet 10 mg PO DAILY 05/15/24 05/15/24 05/14/24 History lorazepam 0.5 mg tablet 0.5 mg PO PRN PRN anxiety 05/15/24 05/15/24 Unknown History multivitamin (Daily Multi-Vitamin 1 tablet PO DAILY 05/15/24 05/15/24 05/14/24 History tablet) rosuvastatin 10 mg tablet 10 mg PO DAILY 05/15/24 05/15/24 05/14/24 History Allergies Allergy/AdvReac Type Severity Reaction Status Date / Time No Known Allergies Allergy Verified 05/14/24 23:30 Review of Systems 2 Review of Systems: ROS unobtainable: Yes unobtainable due to mental status [facility] Family History Family History (Updated 05/15/24 @ 06:57 by Bell Brizuela) Daughter Diabetes mellitus Social History Social History Smoking status: Never smoker Second hand tobacco smoke exposure: Yes Alcohol intake: never Substance use: never Do You Feel Safe in your Home?: Yes Lack of Transportation: No Lack of Food: Never True Current Housing: I Have Housing Concerned About Future Housing: No Difficulty Paying Gas/Electric Bills: No Difficulty Paying for Meds: No Currently Unemployed: No Education: Bachelor's Degree Difficulty w/ Childcare or Family Care: No Spiritual care concerns: No Exam 2 Const: General: no acute distress Limitations: altered mental status (screaming, asking for her daddy) Eyes: EOM: EOMs intact bilaterally Neck: Neck: normal visual inspection Resp: Effort & Inspection: normal respiratory effort Auscultation: clear to auscultation bilaterally Cardio: Rate: regular rate Rhythm: regular rhythm GI: GI Palp: Yes Soft to palpation and No Tenderness to palpation present (GI) Auscultation: normal bowel sounds Skin: General skin exam: normal color Rashes: no rashes Wounds: no wounds Neuro: General: moves all extremities Extrem: General: normal to inspection and no clubbing, cyanosis or edema Psych: Other: screaming not answering questions not cooperative. Course Vital Signs Vital signs: Vital Signs Temperature 97.4 F L 08/13/24 14:13 Pulse Rate 110 H 08/13/24 14:13 Respiratory Rate 18 08/13/24 14:13 Blood Pressure 153/114 H 08/13/24 14:13 Pulse Oximetry 92 08/13/24 14:13 Oxygen Delivery Room Air 08/13/24 14:13 Temperature 100.3 F H 08/13/24 15:27 Pulse Rate 115 H 08/13/24 16:57 Respiratory Rate 19 08/13/24 16:57 Blood Pressure 189/84 H 08/13/24 16:57 Pulse Oximetry 95 08/13/24 16:57 Oxygen Delivery Nasal Cannula 08/13/24 15:51 Oxygen Flow Rate 2 08/13/24 15:51 MDM - Altered Mental Status MDM Narrative Medical decision making narrative: Pt presents with altered mental status and confusion from home. Pt screaming and uncooperative. will need to sedate with haldol and ativan to get work up. will need labs UA cxr and CT brain to start. CT head and pelvis and hips neg. Pt has UTI. Rocephin started. Discussed with Serene Strange and agrees to admit Lab Data 08/13/24 14:51 08/13/24 14:51 Labs: Lab Results 08/13/24 08/13/24 Range/Units 14:51 15:53 WBC 8.1 (4.5-10.0) K/mm3 RBC 3.23 L (4.2-5.4) M/mm3 Hgb 9.8 L (12.0-15.0) g/dL Hct 30.2 L (37.0-47.0) % MCV 93.5 (80-100) fl MCH 30.3 (26-34) pg MCHC 32.5 (32-36) g/dl RDW 14.8 H (11.5-14.5) % Plt Count 319 (150-375) k/mm3 MPV 9.7 (7.4-10.4) fl Immature Gran % (Auto) 0.4 (0-0.5) % Neut % (Auto) 71.1 (45.5-73.1) % Lymph % (Auto) 16.8 L (18.3-44.2) % [place] % (Auto) 9.6 H (2.6-8.5) % Eos % (Auto) 1.7 (0-4.4) % Baso % (Auto) 0.4 (0.2-1.2) % Lymph # (Auto) 1.36 (0.9-3.2) K/mm3 [place] # (Auto) 0.8 H (0.1-0.6) K/mm3 Eos # (Auto) 0.1 (0-0.3) K/mm3 Baso # (Auto) 0.0 (0.0-0.1) K/mm3 Abs Immat Gran (auto) 0.03 (0.00-0.031) K/mm3 Absolute Neuts (auto) 5.8 (1.3-6.7) K/mm3 Absolute Nucleated RBC 0.000 (0.0-0.012) K/mm3 Nucleated RBC % 0.0 (0.0-0.2) % PT 13.2 (11.1-14.7) Seconds INR 1.0 APTT 29.6 (22.3-36.8) Seconds Sodium 143 (137-145) mmol/L Potassium 3.8 (3.4-5.0) mmol/L Chloride 109 H (98-107) mmol/L Carbon Dioxide 23 (22-30) mmol/L Anion Gap 11 (4-12) mmol/L BUN 18 H (7-17) mg/dL Creatinine 1.10 H (0.7-1.0) mg/dL Estim Creat Clear Calc Not Reportable Estimated GFR 48 L (59 - ) Glucose 85 (65-110) mg/dL Lactic Acid 1.3 (0.7-2.0) mmol/L Calcium 9.4 (8.4-10.2) mg/dL Total Bilirubin 0.5 (0.2-1.3) mg/dL AST 26 (14-36) U/L ALT 17 (6-35) U/L Alkaline Phosphatase 77 (38-126) U/L Troponin I < 0.012 (0.000-0.034) ng/mL Total Protein 7.0 (6.3-8.2) g/dL Albumin 3.9 (3.5-5.1) g/dL Urine Color Yellow (Yellow) Urine Appearance Clear (Clear) Urine pH 7.5 (5.0-9.0) Ur Specific [place] 1.018 (1.001-1.035) Urine Protein Trace (Negative) mg/dL Urine Glucose (UA) Negative (Negative) mg/dL Urine Ketones 1+ H (Negative) mg/dL Ur Blood (Man) Trace (Negative) Urine Nitrate Positive H (Negative) Urine Bilirubin Negative (Negative) Urine Urobilinogen 1.0 (<2.0) mg/dL Add Ur Microanalysis Reviewed Leukocyte Esterase Rfl 1+ H (Negative) CORKY/UL Urine RBC 3-5 H (0-2) /hpf Urine WBC 11-20 H (0-3) /hpf Ur Squamous Epith Cells None seen (Few) /hpf Urine Bacteria 4+ /hpf Urine Casts 0-2 Critical Care Time Critical Care Time Critical Care Time: Yes Total Critical Care Time: 32 Discharge Plan Discharge Clinical Impression: Altered mental status, Acute UTI Patient Disposition: Still a Patient Condition: Critical Patient Language: Mongolian Prescriptions: No Action carvedilol 6.25 mg tablet 6.25 mg PO Q12H aspirin 81 mg capsule 81 mg PO DAILY lisinopril 10 mg tablet 10 mg PO DAILY rosuvastatin 10 mg tablet 10 mg PO DAILY multivitamin [Daily Multi-Vitamin] Tablet 1 tablet PO DAILY lorazepam 0.5 mg tablet 0.5 mg PO PRN PRN (Reason: anxiety) Follow-up/Referrals: UNKNOWN,DOCTOR [Primary Care Provider] -
--- OUTSIDE RECORDS SUMMARY | 2024-08-13 14:29 | XMS_ITS | Referral Summary ---
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 A 1 year screening mammogram is recommended. The patient has been or will be contacted. The patient will be entered into an automated reminder system to schedule a mammogram in one year. Electronically signed by: Dr. Stephen Moscoso nh/:03/30/2014 13:15:05 Registered Pharmacy Technician: Shama MARTINEZ (R)(M), [facility] letter sent: Normal Exam Reading location: BI-RADS: 1 Negative [EOD] Narrative 03/30/2014 1:16 PM WEBSPHERE DEVELOPER - ABDIRAHMAN BILATERAL SCREENING W/CAD BILATERAL DIGITAL SCREENING MAMMOGRAM WITH CAD: 03/30/2014 The study was acquired using full field digital technology and interpreted from soft copy. Current study was also evaluated with ICAD version 7.2. COMPARISONS: Comparison is made to exams dated: 12/09/2012 mammogram and 10/06/2011 mammogram - [facility]. BREAST TISSUE:There are scattered fibroglandular densities [...] dated: 12/09/2012 mammogram and 10/06/2011 mammogram - [facility]. BREAST TISSUE:There are scattered fibroglandular densities [...] signed by: Dr. Stephen Moscoso nh/:03/30/2014 13:15:05 Registered Pharmacy Technician: Shama De Jesus RT (R)(M), [facility] letter sent: Normal Exam Reading location: BI-RADS: 1 Negative [EOD] Scout Pak MD IMG MAMMO PROCEDURES Fi nal Result from Last 3 Months or Most Recently Relevant to Health Maintenance Insurance MEDICARE [facility] MEDICARE [facility] Care Teams Price Lister Relationship Specialty Start Date End Date Graham Gardner II, MD PCP - General Family Practice 02/14/22
--- OUTSIDE RECORDS SUMMARY | 2024-08-13 14:29 | XMS_ITS | Encounter Summary ---
Author Organization [facility] Address [address] [place] [id number] Care Team Providers Care Bottom Scrubber Name Role Phone Kendra BAILEY MD, Graham Mendez Primary Care Provider Reason for Visit * Reason Onset Date Comments Advice 08/13/2024 Encounter Details Date Type Department Care Team (Late st Contact Info) Description 08/13/2024 Telephone [facility] Family Medicine [place] [address] Graham Gardner II, MD [address] [place] [phone] Advice Social History Tobacco Use Types Packs/Day Years [...] on file documented as of this encounter Progress Notes * Ángela Denny MA - 08/13/2024 1:14 PM CDT Called Kailey stout ([phone]) and told her that the doctor does want her evaluated at the ER Paramedics were there already * Ángela Denny MA - 08/13/2024 12:51 PM CDT Kailey from [facility] called because Jennifer has been crying uncontrollably all morning and all day. She was asked if she was in pain and she said no. Jennifer's granddaughter had to block off the steps and is supposed to leave for work but she can't leave Jennifer alone in this state that she is in. I advised the ER. Please advise if you have any other recommendations documented in this encounter Plan of Treatment Upcoming Encounters Date Type Department Care Team (Late st Contact Info) Description 08/26/2024 3:40 PM CDT Office Visit [facility] Family Medicine - [place] [address] [place] [phone] Graham Gardner II, MD [address] [place], [place] [phone] documented as of this encounter Visit Diagnoses Not on filedocumented in this encounter Additional Health Concerns Assessment Noted Time PHQ-9 Depression Total Score: 0 02/28/20 12:56 PM CLINICAL TRIAL EDUCATOR documented as of this encounter Care Teams Bottom Scrubber Relationship Specialty Start Date End Date Graham Gardner II, MD [address] [place], [place] [phone] PCP - General FAMILY PRACTICE 12/10/21 documented as of this encounter
--- OUTSIDE RECORDS SUMMARY | 2024-08-13 14:29 | XMS_ITS | Encounter Summary ---
Author Organization [facility] Address [address] [place] [id number] Care Team Providers Care Administrative Specialist Name Role Phone Kendra BAILEY MD, Graham Mendez Primary Care Provider Encounter Details Date Type Department Care Team (Late st Contact Info) Description 08/03/2024 Results Follow-Up [address] [phone] Graham Gardner II, MD [address] [place] [id number] CBC W/DIFF AUTOMATED, COMPREHENSIVE METABOLIC PANEL, LIPID PANEL, TSH W/REFLEX Social History Tobacco Use Types Packs/Day Years [...] as of this encounter Progress Notes * Graham Gardner II, MD - 08/03/2024 2:41 PM CDT Results reviewed. Lab results are overall within normal limits documented in this encounter Plan of Treatment Upcoming Encounters Date Type Department Care Team (Late st Contact Info) Description 08/26/2024 3:40 PM CDT Office Visit [facility] Medical [address] [place] [address] Graham Gardner II, MD [address] [place] [address] documented as of this encounter Visit Diagnoses Not on filedocumented in this encounter Additional Health Concerns Assessment Noted Time PHQ-9 Depression Total Score: 0 02/28/20 22 12:56 PM DEPARTMENT OF MATHEMATICS CHAIR documented as of this encounter Care Teams Administrative Specialist Relationship Specialty Start Date End Date Graham Gardner II, MD [address] [place], [place] [phone] PCP - General FAMILY PRACTICE 12/10/21 documented as of this encounter
--- OUTSIDE RECORDS SUMMARY | 2024-08-13 14:29 | XMS_ITS | Clinical Summary ---
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 Not on file Not on file Not [...] - Tdap) 1956 Hepatitis B Screening 1963 Pneumococcal vaccine 65+ (1 of 1 - PCV) 1995 Zoster Vaccine (1 of 2) 1995 Well Visit 65+ 2010 Covid-19 Vaccine (4 - 2024-2 5 season) 2023 01/05/2021, 06/13/2020, 05/16/2020 Influenza Vaccine (Season Ended) 2024 01/23/2021, 01/05/2020, 01/19/2019, Additional history exists Breast Cancer Screening-Mammogram Discontinued 014, 12/09/2012 Procedures Procedure Name Priority Date/Time Associated Diagnosis Comments SCREENING MAMMOGRAM 2D BILATERAL Routine 03/30/2014 9:21 AM DIE TRIPPER from Last 3 Months or Most Recently Relevant to Health Maintenance Results * Screening Mammogram 2D Bilateral (03/30/2014 9:21 AM DIE TRIPPER) Anatomical Region Laterality Modality Breast Bilateral Mammography 03/30/2014 9:21 AM DIE TRIPPER Impressions 03/30/2014 1:16 PM DIE TRIPPER BIRADS 1: NEGATIVE There is no mammographic evidence of malignancy. A 1 year screening mammogram is recommended. The patient has been or will be contacted. The patient will be entered into an automated reminder system to schedule a mammogram in one year. Electronically signed by: Dr. Stephen Moscoso nh/:03/30/2014 13:15:05 Clinical Quality Analyst: Shama MARTINEZ ([place])([place]), [facility] letter sent: Normal Exam Reading location: BI-RADS: 1 Negative [EOD] Narrative 03/30/2014 1:16 PM DIE TRIPPER - ABDIRAHMAN BILATERAL SCREENING W/CAD BILATERAL DIGITAL SCREENING MAMMOGRAM WITH CAD: 03/30/2014 The study was acquired using full field digital technology and interpreted from soft copy. Current study was also evaluated with ICAD version 7.2. COMPARISONS: Comparison is made to exams dated: 12/09/2012 mammogram and 10/06/2011 mammogram - [facility]. BREAST TISSUE:There are scattered fibroglandular densities [...] dated: 12/09/2012 mammogram and 10/06/2011 mammogram - [facility]. BREAST TISSUE:There are scattered fibroglandular densities [...] signed by: Dr. Stephen Moscoso nh/:03/30/2014 13:15:05 Clinical Quality Analyst: Shama Fall)([place]), [facility] letter sent: Normal Exam Reading location: BI-RADS: 1 Negative [EOD] Scout Pak MD IMG MAMMO PROCEDURES Fi nal Result from Last 3 Months or Most Recently Relevant to Health Maintenance Insurance MEDICARE [facility] MEDICARE [facility] Care Teams Media Sales Consultant Relationship Specialty Start Date End Date Graham Gardner II, MD PCP - General Family Practice 02/14/22
--- OUTSIDE RECORDS SUMMARY | 2024-08-13 14:29 | XMS_ITS | Clinical Summary ---
Author Organization [facility] Address [address] [place] [address] Care Team Providers Care World History Teacher Name Role Phone Kendra BAILEY MD, Graham Mendez Primary Care Provider Allergies No known active allergies Medications aspirin EC (ECOTRIN) 81 MG tablet Take 1 tablet (81 mg total) by mouth daily. Active Multiple Vitamin (MULTIVITAMIN) capsule Rx: Multivitamins Capsule Active lisinopril (PRINIVIL) 10 MG tabletIndications: Stage 3b chronic kidney disease (CMS/HCC) take 1 tablet daily 90 tablet 3 10/11/19 24 Active Misc. Devices (TABLET CUTTER-INSTALLATION TECH) MiscIndications:Ad justment insomnia Use as directed to cut tablets in half. 1 each 1 11/21/19 24 Active rosuvastatin (CRESTOR) 10 MG tabletIndications: Mixed hyperlipidemia Take 1 tablet (10 mg total) by mouth nightly at bedtime. 90 tablet 3 03/25/20 24 Active carvedilol (COREG) 6.25 MG tabletIndications: Primary hypertension Take 1 tablet (6.25 mg total) by mouth 2 (two) times daily. 180 tablet 3 07/08/19 25 Active lidocaine (LIDODERM) 5 % Place 1 patch onto the skin daily. 06/24/19 25 Active NYAMYC [id number] UNIT/GM powder 06/28/19 25 Active Active Problems Problem Noted Date Diagnosed Date Class 1 obesity due to exces s calories with serious comorbidity and body mass index (BMI) of 31.0 to 31.9 in adult 05/22/2023 Stage 3b chronic kidney disease 02/27/2022 Primary hypertension 01/31/2021 Mixed hyperlipidemia 01/31/2021 Chronic pain of left knee 01/31/2021 Aftercare following joint replacement 09/03/2017 Arthritis Resolved Problems Problem Noted Date Diagnosed Date Resolved Date Encounter for hepatitis C vi priscila screening test for high risk patient 08/01/2021 08/08/2021 Encounters Date Type Department Care Team Description 08/13/[address] [phone] Graham Gardner II, MD Advice 08/03/2024 Results Follow-Up [address] [phone] Graham Gardner II, MD CBC W/DIFF AUTOMATED, COMPREHENSIVE METABOLIC PANEL, LIPID PANEL, TSH W/REFLEX 07/15/2024 1:20 PM CDT Office Visit [address] [phone] Graham Gardner II, MD TCM (Patient presents for TCM/hospital follow up for altered mental status and falls) 07/15/2024 Travel 07/14/2024 Orders Only [address] [phone] Graham Gardner II, MD 07/10/2024 Orders Only [address] [phone] Graham Gardner II, MD 07/09/[address] [phone] Graham Gardner II, MD Orders 07/08/2024 Orders Only [address] [phone] Graham Gardner II, MD 07/08/[address] [phone] Graham Gardner II, MD Diarrhea 07/07/2024 Scan HEALTH INFO SRVCS Scanned, [facility] 07/07/[address] [phone] Graham Gardner II, MD Refill Request 07/04/[address] [phone] Graham Gardner II, MD FYI from Last 3 Months Immunizations Immunization Administration Dates Next Due Fluad influenza vaccine, [...] Sign Reading Time Taken Comments Blood Pressure 152/80 07/15/2024 8:51 PM CDT Pulse 92 07/15/2024 1:27 PM CDT Temperature 37 C (98.6 F) 07/15/2024 1:27 PM CDT Respiratory Rate 18 11/21/2022 12:16 PM CDT Oxygen Saturation 98% 07/15/2024 1:27 PM CDT Inhaled Oxygen Concentration - - Weight 83.5 kg (184 lb) 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 Height 165.1 cm (5' 5 ) 09/27/2023 1:26 PM CDT Body Mass Index 30.62 09/27/2023 1:26 PM CDT Plan of Treatment Upcoming Encounters Date Type Department Care Team (Late st Contact Info) Description 08/26/2024 3:40 PM CDT Office Visit [facility] Family Medicine - Colon [address] [place] [phone] Graham Gardner II, MD [address] [place], [place] [phone] Health Maintenance Due Date Last Done Comments DTaP, Tdap and Td Vaccines (1 - Tdap) 1964 Pneumococcal Vaccine: 50+ Years (1 of 1 - PCV) 1995 Zoster Vaccines (1 of 2) 1995 Annual Medicare Wellness Visit 2010 Dexa Scan (General) 2010 RSV Immunization or 60+ Years (1 - 1-dose 75+ series) 2020 COVID-19 Vaccine ( season) 2023 03/09/2023, 01/05/2021, 06/13/2020, Additional history exists PHQ-2 (Physician [place]) 04/02/2024 09/27/2023 Hepatitis C Completed 01/26/2022 Meningococcal [...] Procedure Name Priority Date/Time Associated Diagnosis Comments TSH W/REFLEX Routine 08/01/2024 12:47 PM CDT Fatigue, unspecified type LIPID PANEL Routine 08/01/2024 12:47 PM CDT Mixed hyperlipidemia COMPREHENSIVE METABOLIC PANEL Routine 08/01/2024 12:47 PM CDT Primary hypertension CBC W/DIFF AUTOMATED Routine 08/01/2024 12:47 PM CDT Primary hypertension HEPATITIS C ANTIBODY W/RFX TO HCV RNA Routine 01/26/2022 7:16 AM CDT Encounter for hepatitis C virus screening test for high risk patient from Last 3 Months or Most Recently Relevant to Health Maintenance Results * (ABNORMAL) TSH W/REFLEX (08/01/2024 12:47 PM CDT) TSH 4.82(H) 0.40 - 4.50 mIU/L [facility] FREE T4 1.2 0.8 - 1.8 ng/dL [facility] 08/01/2024 12:4 7 PM CDT 08/01/2024 12:47 PM CDT Narrative Resulting Agency Comment Performing Organization Information: Site ID: SUMAN Name: [facility] [employer] [facility] Address: [id number] [place] [id number] Director: Lety Weiss MD Graham Gardner II, MD LABORATORY Final R esult [facility]JAN SHER[facility] [id number] [place] [address], * (ABNORMAL) COMPREHENSIVE METABOLIC PANEL (08/01/2024 12:47 PM CDT) GLUCOSE 84 65 - 99 mg/dL [facility] Comment: Fasting reference interval BUN 25 7 - 25 mg/dL [facility] CREATININE S/P/B 1.04(H) 0.60 - 1.00 mg/dL [facility] GFR ESTIMATE 55(L) > OR = 60 mL/min/1. 73m2 [facility] BUN CREATININE RATIO 24(H) 6 - 22 (calc) [facility] SODIUM S/P/B 145 135 - 146 mmol/L [facility] POTASSIUM S/P/B 3.7 3.5 - 5.3 mmol/L [facility] [place] [facility] CHLORIDE S/P/B 111(H) 98 - 110 mmol/L [facility] [place] [facility] CO2 26 20 - 32 mmol/L [facility] CALCIUM S/P/B 9.7 8.6 - 10.4 mg/dL [facility] [place] [facility] TOTAL PROTEIN S/P/B 6.4 6.1 - 8.1 g/dL [facility] [place] [facility] ALBUMIN S/P/B 3.7 3.6 - 5.1 g/dL [facility] GLOBULIN 2.7 1.9 - 3.7 g/dL (calc) [facility] ALBUMIN/GLOBULIN RATIO 1.4 1.0 - 2.5 (calc) [facility] BILIRUBIN TOTAL S/P/B 0.3 0.2 - 1.2 mg/dL [facility] [place] [facility] ALKALINE PHOSPHATASE S/P/B 62 37 - 153 U/L [facility] AST 16 10 - 35 U/L [facility] ALT 11 6 - 29 U/L [facility] 08/01/2024 12:4 7 PM CDT 08/01/2024 12:47 PM CDT Narrative Resulting Agency Comment Performing Organization Information: Site ID: [place] Name: [facility] Address: [address] [place] [address] Director: Lety Weiss MD us Graham Gardner II, MD LABORATORY Final R esult [facility] [address] [place] [address], * LIPID PANEL (08/01/2024 12:47 PM CDT) CHOLESTEROL 151 <200 mg/dL [facility] HDL 51 > OR = 50 mg/dL [facility] TRIGLYCERIDES 97 <150 mg/dL [facility] LDL (CALCULATED) 81 mg/dL (calc) [facility] Comment: Reference range: <100 Desirable range <100 mg/dL for primary prevention; <70 mg/dL for patients with CHD or diabetic patients with > or = 2 CHD risk factors. LDL-C is now calculated using the Hazel calculation, which is a validated novel method providing better accuracy than the Friedewald equation in the estimation of LDL-C. Venkata GARCIA et al. LISA. 2013;310(62): 0493-9798 (http://education.[employer]/faq/VWB092) CHOL/HDL RATIO 3.0 <5.0 (calc) [facility] NON HDL CHOLESTEROL 100 <130 mg/dL (calc) [facility] Comment: For patients with diabetes plus 1 major ASCVD risk factor, treating to a non-HDL-C goal of <100 mg/dL (LDL-C of <70 mg/dL) is considered a therapeutic option. 08/01/2024 12:4 7 PM CDT 08/01/2024 12:47 PM CDT Narrative Resulting Agency Comment Performing Organization Information: Site ID: [place] Name: [facility] Address: [id number] [place] [phone] Director: Lety Weiss MD Graham Gardner II, MD LABORATORY Final R esult [facility] SHERID[facility] [id number] [place] [address], KA * (ABNORMAL) CBC W/DIFF AUTOMATED (08/01/2024 12:47 PM CDT) WBC 7.6 3.8 - 10.8 Thousand/ uL [facility] RBC 3.14(L) 3.80 - 5.10 Million/u L [facility] HGB 9.4(L) 11.7 - 15.5 g/dL [facility] HCT 30.2(L) 35.0 - 45.0 % [facility] MCV 96.2 80.0 - 100.0 fL [facility] MCH 29.9 27.0 - 33.0 pg [facility] MCHC 31.1(L) 32.0 - 36.0 g/dL [facility] Comment: For adults, a slight decrease in the calculated MCHC value (in the range of 30 to 32 g/dL) is most likely not clinically significant; however, it should be interpreted with caution in correlation with other red cell parameters and the patient's clinical condition. RDW 15.2(H) 11.0 - 15.0 % [facility] PLT 346 140 - 400 Thousand/ uL [facility] MPV 10.3 7.5 - 12.5 fL [facility] ABS. NEUTROPHILS 5,396 1,500 - 7,800 cells/uL [facility] ABS. LYMPHOCYTES 1,254 850 - 3,900 cells/uL [facility] ABS. MONOCYTES 654 200 - 950 cells/uL [facility] ABS. EOSINOPHILS 258 15 - 500 cells/uL [facility] ABS. BASOPHILS 38 0 - 200 cells/uL [facility] SEG NEUTROPHILS 71 % [facility] LYMPHOCYTES 16.5 % [facility] MONOCYTES 8.6 % [facility] EOSINOPHILS 3.4 % [facility] BASOPHILS 0.5 % [facility] 08/01/2024 12:4 7 PM CDT 08/01/2024 12:47 PM CDT Narrative Resulting Agency Comment Performing Organization Information: Site ID: [place] Name: [facility] Address: [address] [place] [id number] Director: Lety eWiss MD Graham Gardner II, MD LABORATORY Final R esult GUNJAN SHERIDAN [facility] [address] [address] * HEPATITIS C ANTIBODY W/RFX TO HCV [...] a test for HCV RNA (test code 89063) is suggested. For additional information please refer to http://education.[employer]/faq/SSM04k3 (This link is being provided for informational/ educational purposes only.) 01/26/2022 7:16 AM CDT 01/26/2022 7:17 AM CDT Narrative [facility] - 01/27/2022 9:15 AM CDT FASTING:YES FASTING: YES us Shawn Roy MD LABORATORY Final Resul t [facility] [address] [place] [phone] from Last 3 Months or Most Recently Relevant to Health Maintenance Insurance MEDICARE [facility] Advance Directives Documents on File Type Date Recorded 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
--- OUTSIDE RECORDS SUMMARY | 2024-08-13 14:29 | XMS_ITS | Encounter Summary ---
Author Organization [facility] Address [address] [place] [address] Care Team Providers Care Environmental Services Project Manager Name Role Phone Kendra BAILEY MD, Graham Mendez Primary Care Provider Encounter Details Date Type Department Care Team (Late Contact Info) Description 04/01/2024 Solartrec Message Enc [facility] Multispecialty Care - [address], [address] [phone] Ko, [facility] Provider reschedule Social History Tobacco Use Types [...] Encounters Date Type Department Care Team (Late Contact Info) Description 08/26/2024 3:40 PM CDT Office Visit [facility] Family Medicine - [place] [address] [place] [phone] Graham Gardner II, MD [address] [place], [place] [phone] documented as of this encounter Visit Diagnoses Not on filedocumented in this encounter Additional Health Concerns Assessment Noted Time PHQ-9 Depression Total Score: 0 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
--- OUTSIDE RECORDS SUMMARY | 2024-08-13 14:29 | XMS_ITS | Encounter Summary ---
Author Organization [facility] Care Team Providers Care Communication Signals Intelligence Name Role Phone Shawn Roy MD Primary Care Provider + [phone] Kendra BAILEY MD, Graham Palomino Primary Care Provid er Encounter Details Date Type Department Care Team (Latest Contact Info) Description 07/23/2017 Orders Only [facility] ProviderElizabeth MD [address] [place] [address] Social History Tobacco Use Types Packs/Day Years Used Date Smoking Tobacco: Never Assessed Comments Unknown Sex and Gender Information Value Date Recorded Sex Assigned at Not on file 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
--- OUTSIDE RECORDS SUMMARY | 2024-08-13 14:29 | XMS_ITS | Encounter Summary ---
Author Organization 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
[2024-08-13] MEDS: HALOPERIDOL LACTATE 5 MG/ML VIAL IM (14:35)
[2024-08-13] MEDS: LORazepam INJ (*CRX) 2 MG/ML VIAL IM (14:36)
[2024-08-13 15:02] LABS: Basophils Percent Auto 0.4 % (0.2-1.2); Eosinophils Absolute Auto 0.1 K/mm3 (0-0.3); Eosinophils Percent Auto 1.7 % (0-4.4); Hematocrit 30.2 % (37.0-47.0); Hemoglobin 9.8 g/dL (12.0-15.0); Immature Granulocyte Absolute 0.03 K/mm3 (0.00-0.031); Immature Granulocyte Percent A 0.4 % (0-0.5); Lymphocytes Absolute Auto 1.36 K/mm3 (0.9-3.2); Lymphocytes Percent Auto 16.8 % (18.3-44.2); Mean Corpuscular HGB Conc 32.5 g/dl (32-36); Mean Corpuscular Hemoglobin 30.3 pg (26-34); Mean Corpuscular Volume 93.5 fl (80-100); Mean Platelet Volume 9.7 fl (7.4-10.4); Monocytes Absolute Auto 0.8 K/mm3 (0.1-0.6); Monocytes Percent Auto 9.6 % (2.6-8.5); Neutrophils Absolute Auto 5.8 K/mm3 (1.3-6.7); Neutrophils Percent Auto 71.1 % (45.5-73.1); Platelet Count Result 319 k/mm3 (150-375); Red Blood Count 3.23 M/mm3 (4.2-5.4); Red Cell Distribution Width 14.8 % (11.5-14.5); White Blood Count 8.1 K/mm3 (4.5-10.0)
[2024-08-13 15:11] LABS: Alanine Aminotransferase 17 U/L (6-35); Albumin Level 3.9 g/dL (3.5-5.1); Alkaline Phosphatase 77 U/L (38-126); Anion Gap 11 mmol/L (4-12); Aspartate Amino Transferase 26 U/L (14-36); Bilirubin,Total 0.5 mg/dL (0.2-1.3); Blood Urea Nitrogen 18 mg/dL (7-17); Calcium 9.4 mg/dL (8.4-10.2); Carbon Dioxide 23 mmol/L (22-30); Chloride 109 mmol/L (98-107); Estimated Glomerular Filt Rate 48; Glucose 85 mg/dL (65-110); Potassium 3.8 mmol/L (3.4-5.0); Sodium 143 mmol/L (137-145)
[2024-08-13 15:12] LABS: Lactic Acid Reflex 1.3 mmol/L (0.7-2.0); Prothrombin Time 13.2 Seconds (11.1-14.7)
[2024-08-13 15:13] LABS: Partial Thromboplastin Time 29.6 Seconds (22.3-36.8)
[2024-08-13 15:23] LABS: Troponin I < 0.012 ng/mL (0.000-0.034)
[2024-08-13] MEDS: OLANZapine 5 MG, WATER, STERILE FOR INJECTION 2.1 ML IM (16:16)
[2024-08-13 16:22] LABS: Add Urine Microscopic? YES; Appearance Urine Clear (Clear); Bacteria Urine 4+ /hpf; Bilirubin Urine Negative (Negative); Blood Urine Trace (Negative); Color Urine Yellow (Yellow); Glucose Urine UA Negative (Negative); Ketones Urine 1+ mg/dL (Negative); Leukocyte Esterase Ur 1+ LEU/UL (Negative); Need Manual Microscopic Reviewed; Nitrate Urine Positive (Negative); Non Pathogenic Casts 0-2; Protein Urine Trace mg/dL (Negative); Specific Grav Ur 1.018 (1.001-1.035); Squamous Epithelial Cell Urine None Seen /hpf (Few); pH Urine 7.5 (5.0-9.0)
[2024-08-13] MEDS: cefTRIAXone 2 GM/NS 100 ML 2 GM/100 ML BAG IVPB (17:36)
--- NOTE | 2024-08-13 17:36 | P.HP_ITS ---
H&P: HPI History of Present Illness Date/Time: 08/13/24 17:36 Chief Complaint: Altered mental status Narrative: 79-year-old female presents the hospital with altered mental status. HPI is limited due to patient's altered mental status. Patient was brought to the Hospice and was screaming and inconsolable. In the ED the patient was given Haldol, Ativan, and Zyprexa and was sedated to where the ED could treat her. Her lab work in the ED shows a DB a with hemoglobin of 9.8, chloride of 109, BUN of 18, creatinine of 1.1, GFR of 48, lactic acid of 1.3, UA shows positive nitrates and 1+ leukocyte esterase with 11-20 wbc's, and 4+ bacteria. Chest x- ray shows no acute pulmonary process. Head CT shows no acute findings. Hip and pelvis x-ray showed no acute injuries. Review of Systems Review of Systems: ROS unobtainable: Yes unobtainable due to mental status PMFSH Family History Family History (Updated 05/15/24 @ 06:57 by Bell Brizuela) Daughter Diabetes mellitus Social History Social History Smoking status: Never smoker Second hand tobacco smoke exposure: Yes Alcohol intake: never Substance use: never Do You Feel Safe in your Home?: Yes Lack of Transportation: No Lack of Food: Never True Current Housing: I Have Housing Concerned About Future Housing: No Difficulty Paying Gas/Electric Bills: No Difficulty Paying for Meds: No Currently Unemployed: No Education: Bachelor's Degree Difficulty w/ Childcare or Family Care: No Spiritual care concerns: No Meds Home Medications and Allergies Home Medications ?Medication ?Instructions ?Recorded ?Confirmed ?Type carvedilol 6.25 mg tablet 6.25 mg PO Q12H 05/15/24 08/13/24 History lisinopril 10 mg tablet 10 mg PO DAILY 05/15/24 08/13/24 History lorazepam 0.5 mg tablet 0.5 mg PO PRN PRN anxiety 05/15/24 08/13/24 History multivitamin (Daily Multi-Vitamin 1 tablet PO DAILY 05/15/24 08/13/24 History tablet) rosuvastatin 10 mg tablet 10 mg PO DAILY 05/15/24 08/13/24 History trazodone 50 mg tablet 25 mg PO HS 08/13/24 08/13/24 History Allergies Allergy/AdvReac Type Severity Reaction Status Date / Time No Known Allergies Allergy Verified 05/14/24 23:30 Vital Signs Vital Signs - 24 hr 08/13/24 14:13 08/13/24 14:17 08/13/24 15:12 Temperature 97.4 F L Pulse Rate 110 H 112 H 108 H Respiratory Rate 18 19 18 Blood Pressure 153/114 H 144/110 H 117/50 L Pulse Oximetry 92 90 96 Oxygen Delivery Room Air Oxygen Flow Rate 08/13/24 15:27 08/13/24 15:42 08/13/24 15:50 Temperature 100.3 F H Pulse Rate 116 H 108 H Respiratory Rate 20 18 Blood Pressure 144/104 H 174/102 H Pulse Oximetry 92 94 87 L Oxygen Delivery Room Air Oxygen Flow Rate 08/13/24 15:51 08/13/24 15:57 08/13/24 16:30 Temperature Pulse Rate 119 H 115 H Respiratory Rate 23 H Blood Pressure 187/82 H Pulse Oximetry 98 98 Oxygen Delivery Nasal Cannula Oxygen Flow Rate 2 08/13/24 16:30 Temperature Pulse Rate 118 H Respiratory Rate 13 Blood Pressure 174/89 H Pulse Oximetry 95 Oxygen Delivery Oxygen Flow Rate Exam Narrative: General: No acute distress HEENT: normocephalic, atraumatic. Mucous membranes moist. EOMI, PERRLA, bilateral sclera anicteric, no conjunctival injection. Neck supple without JVD, lymphadenopathy, or bruit. Respiratory: clear to ascultation bilaterally. No rales/rhonic/wheezes. Cardiovascular: Regular rate and rhythm, normal S1-S2 upon ascultation. No m urmurs, rubs, or clicks. PMI is nondisplaced, capillary refill less than 3 second. Abdomen: Soft, round, no pulsatile masses, nondistended and nontender. No rebound, no guarding. No CVA tenderness, no hepatosplenomegaly. Bowel sounds present to all four quadrants. No high pitch or tinkling sounds, resonant to percussion. Extremities: No cyanosis, clubbing, or edema present. Pulses are palpable 2/2. Active ROM to all four extremities. Neuro: Alert and orientated x 0. PERRLA. Cranial nerves 2-12 intact without focal deficit. Skin: Warm, dry, and intact, without rash, erythema, or lesion. Psych: Unable to assess H&P: Results Labs Labs: Short CBC 08/13/24 Range/Units 14:51 WBC 8.1 (4.5-10.0) K/mm3 Hgb 9.8 L (12.0-15.0) g/dL Hct 30.2 L (37.0-47.0) % Plt Count 319 (150-375) k/mm3 BMP 08/13/24 14:51 Sodium 143 Potassium 3.8 Chloride 109 H Carbon Dioxide 23 BUN 18 H Creatinine 1.10 H Glucose 85 Calcium 9.4 Cardiac Enzymes 08/13/24 Range/Units 14:51 Troponin I < 0.012 (0.000-0.034) ng/mL Liver Function 08/13/24 Range/Units 14:51 Total Bilirubin 0.5 (0.2-1.3) mg/dL AST 26 (14-36) U/L ALT 17 (6-35) U/L Alkaline Phosphatase 77 (38-126) U/L Albumin 3.9 (3.5-5.1) g/dL Urine 08/13/24 Range/Units 15:53 Urine Color Yellow (Yellow) Urine Appearance Clear (Clear) Urine pH 7.5 (5.0-9.0) Ur Specific Avenue 1.018 (1.001-1.035) Urine Protein Trace (Negative) mg/dL Urine Glucose (UA) Negative (Negative) mg/dL Assessment and Plan Assessment and plan (1) Acute UTI: Code(s): N39.0 - Urinary tract infection, site not specified Status: Acute Assessment and Plan: IV Rocephin IVF Culture and sensitivity pending (2) Altered mental status: Code(s): R41.82 - Altered mental status, unspecified Status: Acute Assessment and Plan: Likely due to acute UTI Head CT negative for acute findings Blood cultures pending NPO until alert Holding home medications for now (3) Hypertensive urgency: Code(s): I16.0 - Hypertensive urgency Status: Acute Assessment and Plan: Hydralazine p.r.n. (4) Tachycardia: Code(s): R00.0 - Tachycardia, unspecified Status: Acute Assessment and Plan: Could be due to dehydration from altered mental status and acute infection versus unable to take carvedilol EKG shows sinus tachycardia Will give fluid bolus and IVF 2.5 of IV metoprolol q.6 while NPO Quality VTE Prophylaxis VTE prophylaxis: mechanical ordered and pharmacologic ordered Hospitalist [facility] Advance Care Plan I have confirmed that the patient's Advanced Care Plan is present, code status is documented, or surrogate decision maker is listed in patient medical record.: Yes Medication Reconciliation I have utilized all available resources to obtain, update and review the patients current medications (includes all prescriptions, OTC, herbals, cannab is, and nutritional supplements).: Yes
[2024-08-13] MEDS: LACTATED RINGERS 1,000 ML 125 ML IV CONT (18:10)
--- NOTE | 2024-08-13 18:38 | ADMGEN ---
This patient, Jennifer Mota, was admitted to [facility] Surg Room 332-01. Patient/family oriented to hospital policies and general routines including ID bracelet, bed and alarms, visiting hours, pain management, procedures, bathroom and other care routines, personal items, smoking policy, room service/diet, and visiting hours. Information on how to activate the Rapid Response Team has been discussed. Patient/Family are encouraged to report perceived risks to care and to ask questions if they do not understand what they are told or what they should do.
[2024-08-13] MEDS: HEPARIN SODIUM 5,000 UNITS/ML VIAL 5000 UNITS SUB-Q (20:48)
[2024-08-13] MEDS: SODIUM CHLORIDE 0.9% IV 500 ML IV CONT (23:23)
[2024-08-14] VITALS (16 sets, daily range): BP systolic 133–160; BP diastolic 66–77; PULSE 90–134; RESP 16–20; TEMP 36.2–36.6; O2SAT 95–100; BMI 29.7
[2024-08-14] MEDS: SODIUM CHLORIDE 0.9% IV 1,000 ML 100 ML IV CONT ×2 (00:29→10:52)
[2024-08-14] MEDS: METOPROLOL TARTRATE INJ 5 MG/5 ML VIAL 2.5 MG IV PUSH ×5 (00:32→23:35)
[2024-08-14] MEDS: OLANZapine 5 MG, WATER, STERILE FOR INJECTION 2.1 ML IM (00:54)
[2024-08-14 06:30] LABS: Basophils Percent Auto 0.3 % (0.2-1.2); Eosinophils Absolute Auto 0.1 K/mm3 (0-0.3); Eosinophils Percent Auto 0.6 % (0-4.4); Hematocrit 29.1 % (37.0-47.0); Hemoglobin 9.3 g/dL (12.0-15.0); Immature Granulocyte Absolute 0.04 K/mm3 (0.00-0.031); Immature Granulocyte Percent A 0.5 % (0-0.5); Lymphocytes Absolute Auto 0.96 K/mm3 (0.9-3.2); Mean Corpuscular Hemoglobin 29.8 pg (26-34); Mean Corpuscular Volume 93.3 fl (80-100); Mean Platelet Volume 9.8 fl (7.4-10.4); Monocytes Absolute Auto 0.8 K/mm3 (0.1-0.6); Monocytes Percent Auto 8.8 % (2.6-8.5); Neutrophils Absolute Auto 6.9 K/mm3 (1.3-6.7); Neutrophils Percent Auto 78.8 % (45.5-73.1); Platelet Count Result 294 k/mm3 (150-375); Red Blood Count 3.12 M/mm3 (4.2-5.4); Red Cell Distribution Width 14.6 % (11.5-14.5); White Blood Count 8.8 K/mm3 (4.5-10.0)
[2024-08-14 06:44] LABS: Anion Gap 9 mmol/L (4-12); Blood Urea Nitrogen 17 mg/dL (7-17); Carbon Dioxide 20 mmol/L (22-30); Chloride 109 mmol/L (98-107); Estimated CRCL calculation 42 ml/min; Estimated Glomerular Filt Rate 57; Sodium 138 mmol/L (137-145)
[2024-08-14 06:45] LABS: Calcium 8.7 mg/dL (8.4-10.2)
[2024-08-14 06:51] LABS: Glucose 86 mg/dL (65-110); Potassium 4.1 mmol/L (3.4-5.0)
--- NOTE | 2024-08-14 07:27 | PM.IMPN ---
Progress Note: A&P Assessment and Plan (1) Acute respiratory failure with hypoxia: Code(s): J96.01 - Acute respiratory failure with hypoxia Status: Acute Assessment and Plan: SpO2 87% on admission. - Oxygen supplementation: Weaned back to RA with stable saturations - DDx: pneumonia vs edema vs pe vs other - ABG without hypercarbic respiratory failure - EKG: sinus tachycardia - Chest XR unremarkable - D dimer elevated, CTA showing no PE, aortic dissection or aortic aneurysm. Minimal pleural effusions with minimal pulmonary edema vs atelectatic changes noted. (2) Altered mental status: Code(s): R41.82 - Altered mental status, unspecified Status: Acute Assessment and Plan: Per chart review granddaughter states patient is getting increasingly confused to the point she does not believe she is safe at home. - Etiology: worsening dementia vs metabolic encephalopathy 2/2 uti AOx3 during assessment, following commands - Head CT: no acute intracranial findings - MRI ordered to further rule out CVA as patient is not on any anticoagulation - Chest XR: no acute cardiopulmonary process - ABG without hypercarbic respiratory failure - Glucose running 70-80s, NPO given mental status and witnessed choking episode on liquids. Started on D5NS and speech consulted. - UA concerning for infection, see plan below (3) Acute UTI: Code(s): N39.0 - Urinary tract infection, site not specified Status: Acute Assessment and Plan: - UA: clear appearance with 1+ ketones, positive nitrates, 1+ leukocytes, 3-5 RBC, 11-20 WBC, 4+ bacteria. No squamous cells seen. - UC obtained on 08/13: pending - no previous micro to be reviewed - started on Rocephin on 08/13 (4) Tachycardia: Code(s): R00.0 - Tachycardia, unspecified Status: Acute Assessment and Plan: HR remains in 110s Etiology: dehydration vs holding carvedilol EKG sinus tachycardia Coreg 6.25 on hold given lethargy, continue metoprolol 2.5 mg IV q6H IV fluids Time Spent With Patient Time with patient: 25 - 35 minutes Subjective Date/time seen: 08/14/24 07:27 Interval history: 79 year old female presents to the hospital for worsening altered mental status that is now to the point that grand daughter (POA) does not believe she is safe at home. Patient is pleasant lying comfortably in bed. She is AOX3 (person, place, month) and following commands on assessment. She has no complaints denying chest pain, shortness of breath, palpitations, nausea/vomiting and abdominal pain. Unsure how reliable ROS is given patients lethargy. Review of Systems Review of Systems: All systems reviewed & are unremarkable except as noted in HPI and below Exam Narrative: AF HR 103 RR 16 SPO2 99 RA BP 133/70 General: female in no acute respiratory distress who is nontoxic appearing, lying semi recumbent in bed. HEENT: Normocephalic. Atraumatic. Extraocular movement intact. Sclera clear and anicteric. No facial asymmetry. Chest: Lungs are clear to auscultation bilaterally. No wheezes or crackles. CV: Heart was regular rate and rhythm. Abd: Abdomen was soft. Nontender. Nondistended. Positive bowel sounds. Ext: No clubbing, cyanosis, or edema. DP pulses bilaterally. Neuro: Patient is alert and oriented x3. Lethargic but answering questions and following commands. Strength is symmetrical in both upper extremities. Speech is clear. Objective Data Vital Signs Vital Signs: Vital Signs - 24 hr 08/13/24 14:13 08/13/24 14:17 08/13/24 15:12 Temperature 97.4 F L Pulse Rate 110 H 112 H 108 H Respiratory Rate 18 19 18 Blood Pressure 153/114 H 144/110 H 117/50 L Pulse Oximetry 92 90 96 Oxygen Delivery Room Air Oxygen Flow Rate 08/13/24 15:27 08/13/24 15:42 08/13/24 15:50 Temperature 100.3 F H Pulse Rate 116 H 108 H Respiratory Rate 20 18 Blood Pressure 144/104 H 174/102 H Pulse Oximetry 92 94 87 L Oxygen Delivery Room Air Oxygen Flow Rate 08/13/24 15:51 08/13/24 15:57 08/13/24 16:30 Temperature Pulse Rate 119 H 115 H Respiratory Rate 23 H Blood Pressure 187/82 H Pulse Oximetry 98 98 Oxygen Delivery Nasal Cannula Oxygen Flow Rate 2 08/13/24 16:30 08/13/24 16:57 08/13/24 17:57 Temperature 99.4 F Pulse Rate 118 H 115 H 108 H Respiratory Rate 13 19 21 H Blood Pressure 174/89 H 189/84 H 168/90 H Pulse Oximetry 95 95 93 Oxygen Delivery Oxygen Flow Rate 08/13/24 18:07 08/13/24 18:42 08/13/24 20:00 Temperature 99.4 F Pulse Rate 110 H 112 H Respiratory Rate 20 22 H Blood Pressure 157/93 H 166/103 H Pulse Oximetry 94 96 94 Oxygen Delivery Nasal Cannula Oxygen Flow Rate 2 08/13/24 20:45 08/14/24 00:32 08/14/24 06:35 Temperature 99.1 F 97.9 F Pulse Rate 115 H 116 H 98 Respiratory Rate 20 16 Blood Pressure 154/100 H 146/66 H Pulse Oximetry 94 97 Oxygen Delivery Oxygen Flow Rate 08/14/24 06:39 Temperature Pulse Rate 106 H Respiratory Rate Blood Pressure Pulse Oximetry Oxygen Delivery Oxygen Flow Rate Intake/Output Intake/Output: Intake & Output 08/11/24 08/12/24 08/13/24 08/14/24 23:59 23:59 23:59 23:59 Intake Total 100 500 Output Total 50 Balance 50 500 Meds/Results Medications: Active Medications Generic Name Dose Route Start Last Admin Trade Name Freq PRN Reason Stop Dose Admin Olanzapine 5 mg/ Sterile Water 0 mg 08/14/24 00:51 08/14/24 00:54 2.1 ml IM 5 mg Q8HR PRN Administration Agitation Heparin Sodium (Porcine) 5,000 units 08/13/24 21:00 08/13/24 20:48 Heparin Sodium 5,000 Units/Ml Vial SUB-Q 5,000 units Q12HR ALEIDA Administration Hydralazine HCl 10 mg 08/13/24 19:21 Hydralazine Hcl 20 Mg/Ml Vial IV PUSH Q8H PRN Blood Pressure - High Sodium Chloride 1,000 mls @ 100 mls/hr 08/13/24 23:10 08/14/24 00:29 Normal Saline Iv IV CONT 100 mls/hr .Q10H ALEIDA Administration Metoprolol Tartrate 2.5 mg 08/14/24 00:00 08/14/24 06:39 Metoprolol Tartrate Inj 5 Mg/5 Ml Vial IV PUSH 2.5 mg Q6HR ALEIDA Administration Radiology Results: ITS Impressions Chest X-Ray 08/13/24 15:12 Impression: 1: No acute cardiopulmonary disease. Head CT 08/13/24 16:56 IMPRESSION: No acute intracranial findings. Hip/Pelvis X-Ray 08/13/24 17:05 IMPRESSION: No acute osseous abnormality of the bilateral hips and pelvis. 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 Labs Labs: Laboratory Results - last 24 hr 08/13/24 08/13/24 08/14/24 14:51 15:53 06:22 WBC 8.1 8.8 RBC 3.23 L 3.12 L Hgb 9.8 L 9.3 L Hct 30.2 L 29.1 L MCV 93.5 93.3 MCH 30.3 29.8 MCHC 32.5 32.0 RDW 14.8 H 14.6 H Plt Count 319 294 MPV 9.7 9.8 Immature Gran % (Auto) 0.4 0.5 Neut % (Auto) 71.1 78.8 H Lymph % (Auto) 16.8 L 11.0 L Pettis % (Auto) 9.6 H 8.8 H Eos % (Auto) 1.7 0.6 Baso % (Auto) 0.4 0.3 Lymph # (Auto) 1.36 0.96 Pettis # (Auto) 0.8 H 0.8 H Eos # (Auto) 0.1 0.1 Baso # (Auto) 0.0 0.0 Abs Immat Gran (auto) 0.03 0.04 H Absolute Neuts (auto) 5.8 6.9 H Absolute Nucleated RBC 0.000 0.000 Nucleated RBC % 0.0 0.0 PT 13.2 INR 1.0 APTT 29.6 Sodium 143 138 Potassium 3.8 4.1 Chloride 109 H 109 H Carbon Dioxide 23 20 L Anion Gap 11 9 BUN 18 H 17 Creatinine 1.10 H 0.94 Estim Creat Clear Calc Not Reportable 42 Estimated GFR 48 L 57 L Glucose 85 86 Lactic Acid 1.3 Calcium 9.4 8.7 Total Bilirubin 0.5 AST 26 ALT 17 Alkaline Phosphatase 77 Troponin I < 0.012 Total Protein 7.0 Albumin 3.9 Urine Color Yellow Urine Appearance Clear Urine pH 7.5 Ur Specific [place] 1.018 Urine Protein Trace Urine Glucose (UA) Negative Urine Ketones 1+ H Ur Blood (Man) Trace Urine Nitrate Positive H Urine Bilirubin Negative Urine Urobilinogen 1.0 Add Ur Microanalysis Reviewed Leukocyte Esterase Rfl 1+ H Urine RBC 3-5 H Urine WBC 11-20 H Ur Squamous Epith Cells None seen Urine Bacteria 4+ Urine Casts 0-2 Quality VTE Prophylaxis VTE prophylaxis: pharmacologic ordered
--- NOTE | 2024-08-14 07:29 | ECG_ITS ---
Test Date: 2024-08-14 10:48:15 Measurements Intervals [place] Rate: 125 P: 24 IN: 159 QRS: 9 QRSD: 90 T: 38 QT: 357 QTc: 515 Interpretive Statements SINUS TACHYCARDIA WITH OCCASIONAL SUPRAVENTRICULAR PREMATURE COMPLEXES LOW QRS VOLTAGE IN PRECORDIAL LEADS [QRS DEFLECTION < 1.0 mV IN CHEST LEADS] POSSIBLE RIGHT VENTRICULAR CONDUCTION DELAY [RSR (QR) IN V1/V2] DELAYED R-WAVE PROGRESSION ABNORMAL ECG Electronically Signed On 08-15-2024 09:38:45 CDT by Sai Workman M.D.
[2024-08-14] MEDS: HEPARIN SODIUM 5,000 UNITS/ML VIAL 5000 UNITS SUB-Q ×2 (10:40→22:03)
[2024-08-14 12:26] LABS: Alveolar/Arterial O2 Gradient 25.1 mmHg; Base Excess ABG -2.5 mEq/l (+/-2.0); Fractional Inspired Oxygen 24 %; HCO3 ABG 20.7 mEq/l (22.0-26.0); Oxygen Saturation ABG 98.3 % (95.0-100.0); Oxyhemoglobin 97.9 % THb (90.0-100.0); PCO2 ABG 30.4 mmHg (35.0-45.0); PO2 ABG 109.8 mmHg (80.0-100.0); PO2 FiO2 Ratio Arterial Blood 4.58 %; Total Hemoglobin 10.8 g/dL (12.0-18.0)
[2024-08-14 12:29] LABS: Modified Allen's Test Pass; Site Drawn RIGHT RADIAL
[2024-08-14 12:32] LABS: Device NASAL CANNULA
[2024-08-14 12:54] LABS: D Dimer 3.75 ug/mL (<0.48)
[2024-08-14 14:42] LABS: Glucose Point of Care 75 mg/dl (65-105)
[2024-08-14] MEDS: DEXTROSE 5%/0.9% SOD CHL 1,000 ML 70 ML IV CONT (15:07)
[2024-08-14 18:04] LABS: Glucose Point of Care 83 mg/dl (65-105)
[2024-08-15] VITALS (13 sets, daily range): BP systolic 124–157; BP diastolic 54–88; PULSE 93–113; RESP 16; TEMP 36.3–36.6; O2SAT 96–98
[2024-08-15 00:41] LABS: Glucose Point of Care 89 mg/dl (65-105)
[2024-08-15] MEDS: DEXTROSE 5%/0.9% SOD CHL 1,000 ML 70 ML IV CONT ×2 (05:25→20:45)
[2024-08-15] MEDS: METOPROLOL TARTRATE INJ 5 MG/5 ML VIAL 2.5 MG IV PUSH ×4 (05:25→23:46)
[2024-08-15 06:45] LABS: Glucose Point of Care 90 mg/dl (65-105)
--- NOTE | 2024-08-15 07:51 | P.PNIM_ITS ---
Progress Note: A&P Assessment and Plan (1) Acute respiratory failure with hypoxia: Code(s): J96.01 - Acute respiratory failure with hypoxia Status: Acute Assessment and Plan: SpO2 87% on admission. - Oxygen supplementation: Weaned back to RA with stable saturations - DDx: pneumonia vs edema vs pe vs other - ABG without hypercarbic respiratory failure - EKG: sinus tachycardia - Chest XR unremarkable - D dimer elevated, CTA showing no PE, aortic dissection or aortic aneurysm. Minimal pleural effusions with minimal pulmonary edema vs atelectatic changes noted. Resolved. (2) Altered mental status: Code(s): R41.82 - Altered mental status, unspecified Status: Acute Assessment and Plan: Per chart review granddaughter states patient is getting increasingly confused to the point she does not believe she is safe at home. On 08/14 patient AOx3 following commands during assessment however she was quite lethargic and continued to fall asleep after answering questions. Possibly due to patient receiving Haldol and Zyprexa. - Etiology: worsening dementia vs metabolic encephalopathy 2/2 uti - Head CT: no acute intracranial findings - MRI ordered to further rule out CVA as patient is not on any anticoagulation - Chest XR: no acute cardiopulmonary process - ABG without hypercarbic respiratory failure - Glucose running 70-80s. Started on D5NS. If patient tolerating diet okay to DC fluids. - UA concerning for infection, see plan below Patient much more alert today, remains AOx3, following commands and answering questions appropriately. Speech evaluated her and able to start heart healthy pureed diet with nectar liquids. If tolerating diet well will resume PO medications in the am. (3) Acute UTI: Code(s): N39.0 - Urinary tract infection, site not specified Status: Acute Assessment and Plan: - UA: clear appearance with 1+ ketones, positive nitrates, 1+ leukocytes, 3-5 RBC, 11-20 WBC, 4+ bacteria. No squamous cells seen. - UC obtained on 08/13: Ecoli pansensitive, depending on how patient tolerates diet will transition to PO tomorrow - no previous micro to be reviewed - started on Rocephin on 08/13 (4) Tachycardia: Code(s): R00.0 - Tachycardia, unspecified Status: Acute Assessment and Plan: HR remains in 90s Etiology: dehydration vs holding carvedilol EKG sinus tachycardia Coreg 6.25 on hold given lethargy, continue metoprolol 2.5 mg IV q6H IV fluids Time Spent With Patient Time with patient: 25 - 35 minutes Subjective Date/time seen: 08/15/24 07:51 Interval history: 79 year old female presents to the hospital for worsening altered mental status that is now to the point that grand daughter (POSalina) does not believe she is safe at home. Patient is pleasant sitting up comfortably in her bed. She is much more awake this morning and is alert and oriented x3 able to follow commands and answer questions appropriately. She has no complaints at this time denying chest pain, palpitations, shortness of breath, nausea/vomiting, abdominal pain and all urinary tract infection like symptoms. Review of Systems Review of Systems: All systems reviewed & are unremarkable except as noted in HPI and below Exam Narrative: AF HR96 RR 16 SPO2 98 RA BP 124/54 General: female in no acute respiratory distress who is nontoxic appearing, lying semi recumbent in bed. HEENT: Normocephalic. Atraumatic. PERRLA. Extraocular movement intact. Sclera clear and anicteric. No facial asymmetry. Chest: Lungs are clear to auscultation bilaterally. No wheezes or crackles. CV: Heart was regular rate and rhythm. Abd: Abdomen was soft. Nontender. Nondistended. Positive bowel sounds. Ext: No clubbing, cyanosis, or edema. DP pulses bilaterally. Neuro: Patient is alert and oriented x3.Strength is symmetrical in both upper extremities. Speech is clear. Objective Data Vital Signs Vital Signs: Vital Signs - 24 hr 08/14/24 08:00 08/14/24 10:52 08/14/24 11:49 Temperature Pulse Rate 90 134 H 96 Respiratory Rate Blood Pressure Pulse Oximetry Oxygen Delivery Oxygen Flow Rate 08/14/24 12:00 08/14/24 12:12 08/14/24 12:30 Temperature Pulse Rate 101 H Respiratory Rate Blood Pressure Pulse Oximetry 97 100 Oxygen Delivery Nasal Cannula Nasal Cannula Oxygen Flow Rate 2 2 08/14/24 12:40 08/14/24 13:57 08/14/24 16:00 Temperature 97.6 F Pulse Rate 103 H 111 H Respiratory Rate 16 Blood Pressure 133/70 Pulse Oximetry 98 99 Oxygen Delivery Room Air Oxygen Flow Rate 08/14/24 17:10 08/14/24 20:00 08/14/24 20:00 Temperature Pulse Rate 102 H 102 H 102 H Respiratory Rate 16 Blood Pressure Pulse Oximetry 99 Oxygen Delivery Room Air Oxygen Flow Rate 08/14/24 20:55 08/14/24 23:35 08/15/24 00:00 Temperature 97.2 F L Pulse Rate 118 H 102 H 110 H Respiratory Rate 20 Blood Pressure 160/77 H Pulse Oximetry 95 Oxygen Delivery Oxygen Flow Rate 08/15/24 04:00 08/15/24 05:25 08/15/24 05:30 Temperature 97.4 F L Pulse Rate 105 H 105 H 100 Respiratory Rate 16 Blood Pressure 124/54 L Pulse Oximetry 98 Oxygen Delivery Oxygen Flow Rate Intake/Output Intake/Output: Intake & Output 08/12/24 08/13/24 08/14/24 08/15/24 23:59 23:59 23:59 23:59 Intake Total 100 1550 1000 Output Total 50 Balance 50 1550 1000 Meds/Results Medications: Active Medications Generic Name Dose Route Start Last Admin Trade Name Freq PRN Reason Stop Dose Admin Olanzapine 5 mg/ Sterile Water 0 mg 08/14/24 00:51 08/14/24 00:54 2.1 ml IM 5 mg Q8HR PRN Administration Agitation Heparin Sodium (Porcine) 5,000 units 08/13/24 21:00 08/14/24 22:03 Heparin Sodium 5,000 Units/Ml Vial SUB-Q 5,000 units Q12HR ALEIDA Administration Hydralazine HCl 10 mg 08/13/24 19:21 Hydralazine Hcl 20 Mg/Ml Vial IV PUSH Q8H PRN Blood Pressure - High Ceftriaxone Sodium 1 gm in 50 mls @ 100 mls/hr 08/14/24 09:00 08/14/24 08:35 Rocephin 1 Gm/Ns 50 Ml IVPB Infused Q24H ALEIDA Infusion Dextrose/Sodium Chloride 1,000 mls @ 70 mls/hr 08/14/24 14:45 08/15/24 05:25 Dextrose 5% Sodium Chloride 0.9% IV CONT 70 mls/hr .[id number] ALEIDA Administration Metoprolol Tartrate 2.5 mg 08/14/24 00:00 08/15/24 05:25 Metoprolol Tartrate Inj 5 Mg/5 Ml Vial IV PUSH 2.5 mg Q6HR ALEIDA Administration Radiology Results: ITS Impressions Chest X-Ray 08/13/24 15:12 Impression: 1: No acute cardiopulmonary disease. Head CT 08/13/24 16:56 IMPRESSION: No acute intracranial findings. Hip/Pelvis X-Ray 08/13/24 17:05 IMPRESSION: No acute osseous abnormality of the bilateral hips and pelvis. 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 Chest CTA 08/14/24 14:09 Impression: No evidence of pulmonary embolus, aortic dissection, or aortic aneurysm. Minimal pleural effusions with probable minimal pulmonary edema versus a telectatic changes in the lungs. Labs Labs: Laboratory Results - last 24 hr 08/14/24 08/14/24 08/14/24 11:58 12:19 14:36 D-Dimer 3.75 H Puncture Site Right radial ABG pH 7.450 ABG pCO2 30.4 L ABG pO2 109.8 H ABG PO2/FiO2 Ratio 4.58 ABG HCO3 20.7 L ABG O2 Saturation 98.3 ABG O2 Content 15.0 L ABG Base Excess -2.5 A-a Gradient 25.1 Oxyhemoglobin 97.9 Total Hemoglobin 10.8 L O2 Delivery Device Nasal cannula O2 Liters/Min 2.0 FiO2 24 POC Capillary Glucose 75 08/14/24 08/15/24 08/15/24 17:56 00:38 06:41 D-Dimer Puncture Site ABG pH ABG pCO2 ABG pO2 ABG PO2/FiO2 Ratio ABG HCO3 ABG O2 Saturation ABG O2 Content ABG Base Excess A-a Gradient Oxyhemoglobin Total Hemoglobin O2 Delivery Device O2 Liters/Min FiO2 POC Capillary Glucose 83 89 90 Quality VTE Prophylaxis VTE prophylaxis: pharmacologic ordered
[2024-08-15] MEDS: HEPARIN SODIUM 5,000 UNITS/ML VIAL 5000 UNITS SUB-Q ×2 (08:05→20:45)
[2024-08-15 09:02] LABS: Mean Corpuscular HGB Conc 32.1 g/dl (32-36); Mean Corpuscular Hemoglobin 30.3 pg (26-34); Mean Corpuscular Volume 94.3 fl (80-100); Mean Platelet Volume 10.3 fl (7.4-10.4); Platelet Count Result 277 k/mm3 (150-375); Red Blood Count 2.97 M/mm3 (4.2-5.4); Red Cell Distribution Width 14.6 % (11.5-14.5); White Blood Count 6.3 K/mm3 (4.5-10.0)
[2024-08-15 09:14] LABS: Alanine Aminotransferase 15 U/L (6-35); Alkaline Phosphatase 58 U/L (38-126); Anion Gap 8 mmol/L (4-12); Aspartate Amino Transferase 30 U/L (14-36); Bilirubin,Total 0.4 mg/dL (0.2-1.3); Blood Urea Nitrogen 14 mg/dL (7-17); Calcium 8.7 mg/dL (8.4-10.2); Carbon Dioxide 22 mmol/L (22-30); Chloride 109 mmol/L (98-107); Estimated CRCL calculation 39 ml/min; Estimated Glomerular Filt Rate 53; Glucose 89 mg/dL (65-110); Potassium 3.3 mmol/L (3.4-5.0); Sodium 139 mmol/L (137-145)
--- NOTE | 2024-08-15 10:35 | PCSTNOTE ---
Patient bedside swallow completed 08/15/24. Recommend Puree diet, nectar liquids, small bites and drinks, no straw use, upright for meals with distractions removed. Frequent observation/supervision. In addition recommend speech services re-assess tomorrow to determine if with improved alertness improved management of thin liquid or if MBS indicated.
--- NOTE | 2024-08-15 11:10 | PCDIET ---
Addendum entered by Ruth Jain RD, LDN 08/15/24 13:23: Speech recommendations for a pureed diet consistency with mildly thick liquids. Agree with recommendation Recommend to add Ensure Enlive BID Original Note: Pt alert and oriented today x 3. Recommend to advance diet if appropriate. Will follow up.
[2024-08-15 12:48] LABS: Glucose Point of Care 94 mg/dl (65-105)
--- NOTE | 2024-08-15 13:15 | PCOTNOTE ---
Attempted OT evaluation at 1315. RN informed therapist to hold due to pt leaving room for MRI and requested to try again later.
[2024-08-15] MEDS: LIDOCAINE 5% PATCH 2 PATCH TRANSDERM (13:59)
[2024-08-16] VITALS (12 sets, daily range): BP systolic 103–152; BP diastolic 46–70; PULSE 73–111; RESP 20; TEMP 36.4–36.6; O2SAT 96–98
[2024-08-16 00:40] LABS: Glucose Point of Care 122 mg/dl (65-105)
[2024-08-16 06:00] LABS: Hematocrit 26.1 % (37.0-47.0); Hemoglobin 8.1 g/dL (12.0-15.0); Mean Corpuscular Hemoglobin 29.6 pg (26-34); Mean Corpuscular Volume 95.3 fl (80-100); Mean Platelet Volume 10.1 fl (7.4-10.4); Platelet Count Result 263 k/mm3 (150-375); Red Blood Count 2.74 M/mm3 (4.2-5.4); Red Cell Distribution Width 14.6 % (11.5-14.5); White Blood Count 6.4 K/mm3 (4.5-10.0)
[2024-08-16] MEDS: METOPROLOL TARTRATE INJ 5 MG/5 ML VIAL 2.5 MG IV PUSH ×2 (06:00→12:25)
[2024-08-16 06:09] LABS: Alanine Aminotransferase 16 U/L (6-35); Albumin Level 2.8 g/dL (3.5-5.1); Alkaline Phosphatase 61 U/L (38-126); Anion Gap 6 mmol/L (4-12); Aspartate Amino Transferase 28 U/L (14-36); Bilirubin,Total 0.3 mg/dL (0.2-1.3); Blood Urea Nitrogen 13 mg/dL (7-17); Calcium 8.5 mg/dL (8.4-10.2); Carbon Dioxide 22 mmol/L (22-30); Chloride 111 mmol/L (98-107); Estimated CRCL calculation 43 ml/min; Estimated Glomerular Filt Rate 60; Glucose 97 mg/dL (65-110); Potassium 3.4 mmol/L (3.4-5.0); Sodium 139 mmol/L (137-145)
[2024-08-16] MEDS: LIDOCAINE 5% PATCH 2 PATCH TRANSDERM (08:16)
[2024-08-16] MEDS: HEPARIN SODIUM 5,000 UNITS/ML VIAL 5000 UNITS SUB-Q ×2 (08:17→20:37)
--- NOTE | 2024-08-16 09:21 | PM.IMPN ---
Progress Note: A&P Assessment and Plan (1) Acute respiratory failure with hypoxia: Code(s): J96.01 - Acute respiratory failure with hypoxia Status: Acute Assessment and Plan: SpO2 87% on admission. - Oxygen supplementation: Weaned back to RA with stable saturations - DDx: pneumonia vs edema vs pe vs other - ABG without hypercarbic respiratory failure - EKG: sinus tachycardia - Chest XR unremarkable - D dimer elevated, CTA showing no PE, aortic dissection or aortic aneurysm. Minimal pleural effusions with minimal pulmonary edema vs atelectatic changes noted. Resolved. Remains on RA with saturations in upper 90s. (2) Altered mental status: Code(s): R41.82 - Altered mental status, unspecified Status: Acute Assessment and Plan: Per chart review granddaughter states patient is getting increasingly confused to the point she does not believe she is safe at home. On 08/14 patient AOx3 following commands during assessment however she was quite lethargic and continued to fall asleep after answering questions. Possibly due to patient receiving Haldol and Zyprexa. - Etiology: worsening dementia vs metabolic encephalopathy 2/2 uti - Head CT: no acute intracranial findings - MRI ordered to further rule out CVA as patient is not on any anticoagulation - Chest XR: no acute cardiopulmonary process - ABG without hypercarbic respiratory failure - Glucose running 70-80s. Started on D5NS. If patient tolerating diet okay to DC fluids. - UA concerning for infection, see plan below Patient alert and sitting on side of the bed able to hold a normal conversation, remains AOx3, following commands. Speech reevaluated her diet advanced. (3) Acute UTI: Code(s): N39.0 - Urinary tract infection, site not specified Status: Acute Assessment and Plan: - UA: clear appearance with 1+ ketones, positive nitrates, 1+ leukocytes, 3-5 RBC, 11-20 WBC, 4+ bacteria. No squamous cells seen. - UC obtained on 08/13: Ecoli pansensitive, plan to transition to PO tomorrow - no previous micro to be reviewed - started on Rocephin on 08/13 (4) Tachycardia: Code(s): R00.0 - Tachycardia, unspecified Status: Acute Assessment and Plan: HR remains in 90s Etiology: dehydration vs holding carvedilol EKG sinus tachycardia Coreg 6.25 resumed Monitor Time Spent With Patient Time with patient: 25 - 35 minutes Subjective Date/time seen: 08/16/24 09:21 Interval history: 79 year old female presents to the hospital for worsening altered mental status that is now to the point that grand daughter (TERE) does not believe she is safe at home. Patient is pleasant sitting up on the side of her bed. She is alert and oriented x3 during assessment. She has no complaints denying chest pain, palpitations, shortness of breath, nausea/vomiting, abdominal pain. She states she is feeling much better at this time. Review of Systems Review of Systems: All systems reviewed & are unremarkable except as noted in HPI and below Exam Narrative: AF HR 98 RR 20 SpO2 97 BP 103/46 General: female in no acute respiratory distress who is nontoxic appearing, sitting on side of bed HEENT: Normocephalic. Atraumatic. PERRLA. Extraocular movement intact. Sclera clear and anicteric. No facial asymmetry. Chest: Lungs are clear to auscultation bilaterally. No wheezes or crackles. CV: Heart was regular rate and rhythm. Abd: Abdomen was soft. Nontender. Nondistended. Positive bowel sounds. Ext: No clubbing, cyanosis, or edema. DP pulses bilaterally. Neuro: Patient is alert and oriented x3.Strength is symmetrical in both upper extremities. Speech is clear. Objective Data Vital Signs Vital Signs: Vital Signs - 24 hr 08/15/24 10:43 08/15/24 11:17 08/15/24 12:00 Temperature Pulse Rate 112 H 93 Respiratory Rate Blood Pressure Pulse Oximetry Oxygen Delivery Room Air 08/15/24 14:00 08/15/24 16:00 08/15/24 17:04 Temperature 97.9 F Pulse Rate 98 99 109 H Respiratory Rate 16 Blood Pressure 140/88 Pulse Oximetry 96 Oxygen Delivery 08/15/24 20:00 08/15/24 20:00 08/15/24 20:00 Temperature Pulse Rate 102 H 102 H Respiratory Rate 16 Blood Pressure Pulse Oximetry 96 96 Oxygen Delivery Room Air Room Air 08/15/24 21:30 08/15/24 23:46 08/16/24 00:00 Temperature 97.5 F L Pulse Rate 113 H 110 H 101 H Respiratory Rate 16 Blood Pressure 157/59 H Pulse Oximetry 97 Oxygen Delivery 08/16/24 04:00 08/16/24 05:00 08/16/24 06:00 Temperature 97.7 F Pulse Rate 108 H 103 H 105 H Respiratory Rate 20 Blood Pressure 152/70 H Pulse Oximetry 96 Oxygen Delivery Intake/Output Intake/Output: Intake & Output 08/13/24 08/14/24 08/15/24 08/16/24 23:59 23:59 23:59 23:59 Intake Total 100 1550 2170 100 Output Total 50 300 700 Balance 50 1550 1870 -600 Meds/Results Medications: Active Medications Generic Name Dose Route Start Last Admin Trade Name Freq PRN Reason Stop Dose Admin Olanzapine 5 mg/ Sterile Water 0 mg 08/14/24 00:51 08/14/24 00:54 2.1 ml IM 5 mg Q8HR PRN Administration Agitation Heparin Sodium (Porcine) 5,000 units 08/13/24 21:00 08/16/24 08:17 Heparin Sodium 5,000 Units/Ml Vial SUB-Q 5,000 units Q12HR ALEIDA Administration Hydralazine HCl 10 mg 08/13/24 19:21 Hydralazine Hcl 20 Mg/Ml Vial IV PUSH Q8H PRN Blood Pressure - High Ceftriaxone Sodium 1 gm in 50 mls @ 100 mls/hr 08/14/24 09:00 08/16/24 08:18 Rocephin 1 Gm/Ns 50 Ml IVPB 100 mls/hr Q24H ALEIDA Administration Dextrose/Sodium Chloride 1,000 mls @ 70 mls/hr 08/14/24 14:45 08/15/24 20:45 Dextrose 5% Sodium Chloride 0.9% IV CONT 70 mls/hr .[id number] ALEIDA Administration Lidocaine 2 patch 08/15/24 13:35 08/16/24 08:16 Lidocaine 5% Patch TRANSDERM 2 patch DAILY ALEIDA Administration Metoprolol Tartrate 2.5 mg 08/14/24 00:00 08/16/24 06:00 Metoprolol Tartrate Inj 5 Mg/5 Ml Vial IV PUSH 2.5 mg Q6HR ALEIDA Administration Radiology Results: ITS Impressions Chest X-Ray 08/13/24 15:12 Impression: 1: No acute cardiopulmonary disease. Head CT 08/13/24 16:56 IMPRESSION: No acute intracranial findings. Hip/Pelvis X-Ray 08/13/24 17:05 IMPRESSION: No acute osseous abnormality of the bilateral hips and pelvis. 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 Chest CTA 08/14/24 14:09 Impression: No evidence of pulmonary embolus, aortic dissection, or aortic aneurysm. Minimal pleural effusions with probable minimal pulmonary edema versus atelectatic changes in the lungs. Brain MRI 08/15/24 13:47 IMPRESSION: 1. Normal aging brain with mild scattered nonspecific white matter T2 hyperintensity consistent with chronic small vessel ischemic disease. No acute intracranial process. Labs Labs: Laboratory Results - last 24 hr 08/15/24 08/16/24 08/16/24 12:43 00:31 05:45 WBC 6.4 RBC 2.74 L Hgb 8.1 L Hct 26.1 L MCV 95.3 MCH 29.6 MCHC 31.0 L RDW 14.6 H Plt Count 263 MPV 10.1 Sodium 139 Potassium 3.4 Chloride 111 H Carbon Dioxide 22 Anion Gap 6 BUN 13 Creatinine 0.90 Estim Creat Clear Calc 43 Estimated GFR 60 Glucose 97 POC Capillary Glucose 94 122 H Calcium 8.5 Total Bilirubin 0.3 AST 28 ALT 16 Alkaline Phosphatase 61 Total Protein 6.0 L Albumin 2.8 L Quality VTE Prophylaxis VTE prophylaxis: pharmacologic ordered
[2024-08-16] MEDS: DEXTROSE 5%/0.9% SOD CHL 1,000 ML 70 ML IV CONT (10:33)
[2024-08-16 11:30] LABS: Glucose Point of Care 109 mg/dl (65-105)
[2024-08-16 12:06] LABS: Hematocrit 31.5 % (37.0-47.0); Hemoglobin 9.6 g/dL (12.0-15.0)
[2024-08-16 18:16] LABS: Glucose Point of Care 102 mg/dl (65-105)
[2024-08-16] MEDS: carvediloL 6.25 MG TABLET PO (20:37)
[2024-08-17] VITALS (12 sets, daily range): BP systolic 101–170; BP diastolic 63–72; PULSE 93–124; RESP 16–20; TEMP 36.6–36.8; O2SAT 95–100
[2024-08-17 06:32] LABS: Alanine Aminotransferase 21 U/L (6-35); Albumin Level 3.5 g/dL (3.5-5.1); Alkaline Phosphatase 76 U/L (38-126); Anion Gap 11 mmol/L (4-12); Aspartate Amino Transferase 34 U/L (14-36); Bilirubin,Total 0.6 mg/dL (0.2-1.3); Blood Urea Nitrogen 14 mg/dL (7-17); Calcium 9.1 mg/dL (8.4-10.2); Carbon Dioxide 20 mmol/L (22-30); Chloride 107 mmol/L (98-107); Estimated CRCL calculation 38 ml/min; Estimated Glomerular Filt Rate 52; Glucose 90 mg/dL (65-110); Potassium 3.7 mmol/L (3.4-5.0); Sodium 138 mmol/L (137-145)
[2024-08-17 07:01] LABS: Hematocrit 37.1 % (37.0-47.0); Hemoglobin 11.7 g/dL (12.0-15.0); Mean Corpuscular HGB Conc 31.5 g/dl (32-36); Mean Corpuscular Hemoglobin 29.7 pg (26-34); Mean Corpuscular Volume 94.2 fl (80-100); Mean Platelet Volume 10.6 fl (7.4-10.4); Platelet Count Result 251 k/mm3 (150-375); Red Blood Count 3.94 M/mm3 (4.2-5.4); Red Cell Distribution Width 14.2 % (11.5-14.5); White Blood Count 5.7 K/mm3 (4.5-10.0)
[2024-08-17] MEDS: HEPARIN SODIUM 5,000 UNITS/ML VIAL 5000 UNITS SUB-Q ×2 (07:55→22:16)
[2024-08-17] MEDS: carvediloL 6.25 MG TABLET PO (07:56)
[2024-08-17] MEDS: lisinopriL 10 MG TABLET PO (07:56)
[2024-08-17] MEDS: ROSUVASTATIN 10 MG TABLET PO (07:56)
[2024-08-17] MEDS: LIDOCAINE 5% PATCH 2 PATCH TRANSDERM (08:49)
--- NOTE | 2024-08-17 09:57 | PM.IMPN ---
Progress Note: A&P Assessment and Plan (1) Acute respiratory failure with hypoxia: Code(s): J96.01 - Acute respiratory failure with hypoxia Status: Acute Assessment and Plan: SpO2 87% on admission. - Oxygen supplementation: Weaned back to RA with stable saturations - DDx: pneumonia vs edema vs pe vs other - ABG without hypercarbic respiratory failure - EKG: sinus tachycardia - Chest XR unremarkable - D dimer elevated, CTA showing no PE, aortic dissection or aortic aneurysm. Minimal pleural effusions with minimal pulmonary edema vs atelectatic changes noted. Resolved. Remains on RA with saturations in upper 90s. (2) Altered mental status: Code(s): R41.82 - Altered mental status, unspecified Status: Acute Assessment and Plan: Per chart review granddaughter states patient is getting increasingly confused to the point she does not believe she is safe at home. On 08/14 patient AOx3 following commands during assessment however she was quite lethargic and continued to fall asleep after answering questions. Possibly due to patient receiving Haldol and Zyprexa. - Etiology: worsening dementia vs metabolic encephalopathy 2/2 uti - Head CT: no acute intracranial findings - MRI ordered to further rule out CVA as patient is not on any anticoagulation - Chest XR: no acute cardiopulmonary process - ABG without hypercarbic respiratory failure - Glucose running 70-80s. Started on D5NS. If patient tolerating diet okay to DC fluids. - UA concerning for infection, see plan below Patient alert and sitting up in bed, remains AOx3, following commands. She is intermittently tearful wanting to go home soon. (3) Acute UTI: Code(s): N39.0 - Urinary tract infection, site not specified Status: Acute Assessment and Plan: - UA: clear appearance with 1+ ketones, positive nitrates, 1+ leukocytes, 3-5 RBC, 11-20 WBC, 4+ bacteria. No squamous cells seen. - UC obtained on 08/13: Ecoli pansensitive, plan to transition to Augmentin PO tomorrow - no previous micro to be reviewed - started on Rocephin on 08/13 (4) Tachycardia: Code(s): R00.0 - Tachycardia, unspecified Status: Acute Assessment and Plan: HR sustaining 100s with EKG showing sinus tachy on home coreg Coreg 6.25 mg increased to 12.5 mg BID Monitor Time Spent With Patient Time with patient: 25 - 35 minutes Subjective Date/time seen: 08/17/24 09:57 Interval history: 79 year old female presents to the hospital for worsening altered mental status that is now to the point that grand daughter (TERE) does not believe she is safe at home. Patient is pleasant lying in bed. She is tearful on assessment stating she just wants to go home. She has no complaints denying chest pain, shortness of breath, palpitations, nausea/vomiting and abdominal pain. She continues to be tachycardic on tele, ekg showing sinus tach. Coreg dose increased. She continues to work with therapy. Review of Systems Review of Systems: All systems reviewed & are unremarkable except as noted in HPI and below Exam Narrative: AF HR 104 RR 16 SpO2 98 BP 115/63 General: female in no acute respiratory distress who is nontoxic appearing, sitting up in bed. HEENT: Normocephalic. Atraumatic. PERRLA. Extraocular movement intact. Sclera clear and anicteric. No facial asymmetry. Chest: Lungs are clear to auscultation bilaterally. No wheezes or crackles. CV: Heart was regular rate and rhythm. Abd: Abdomen was soft. Nontender. Nondistended. Positive bowel sounds. Ext: No clubbing, cyanosis, or edema. DP pulses bilaterally. Neuro: Patient is alert and oriented x3.Strength is symmetrical in both upper extremities. Speech is clear. Objective Data Vital Signs Vital Signs: Vital Signs - 24 hr 08/16/24 12:00 08/16/24 12:25 08/16/24 13:40 Temperature 97.8 F Pulse Rate 103 H 73 98 Respiratory Rate 20 Blood Pressure 103/46 L Pulse Oximetry 97 Oxygen Delivery 08/16/24 16:00 08/16/24 20:00 08/16/24 20:00 Temperature Pulse Rate 103 H 101 H 111 H Respiratory Rate 20 Blood Pressure Pulse Oximetry 98 Oxygen Delivery Room Air 08/16/24 20:37 08/16/24 22:00 08/17/24 00:00 Temperature 97.6 F Pulse Rate 104 H 101 H 107 H Respiratory Rate 20 Blood Pressure 104/51 L Pulse Oximetry 98 Oxygen Delivery 08/17/24 04:00 08/17/24 06:00 08/17/24 07:56 Temperature 98 F Pulse Rate 109 H 98 124 H Respiratory Rate 20 Blood Pressure 101/63 Pulse Oximetry 95 Oxygen Delivery Intake/Output Intake/Output: Intake & Output 08/14/24 08/15/24 08/16/24 08/17/24 23:59 23:59 23:59 23:59 Intake Total 1550 2170 2026 238 Output Total 300 1100 Balance 1550 1870 926 238 Meds/Results Medications: Active Medications Generic Name Dose Route Start Last Admin Trade Name Freq PRN Reason Stop Dose Admin Carvedilol 6.25 mg 08/16/24 21:00 08/17/24 07:56 Carvedilol 6.25 Mg Tablet PO 6.25 mg Q12HR ALEIDA Administration Olanzapine 5 mg/ Sterile Water 0 mg 08/14/24 00:51 08/14/24 00:54 2.1 ml IM 5 mg Q8HR PRN Administration Agitation Heparin Sodium (Porcine) 5,000 units 08/13/24 21:00 08/17/24 07:55 Heparin Sodium 5,000 Units/Ml Vial SUB-Q 5,000 units Q12HR ALEIDA Administration Hydralazine HCl 10 mg 08/13/24 19:21 Hydralazine Hcl 20 Mg/Ml Vial IV PUSH Q8H PRN Blood Pressure - High Ceftriaxone Sodium 1 gm in 50 mls @ 100 mls/hr 08/14/24 09:00 08/17/24 07:55 Rocephin 1 Gm/Ns 50 Ml IVPB 100 mls/hr Q24H ALEIDA Administration Lidocaine 2 patch 08/15/24 13:35 08/17/24 08:49 Lidocaine 5% Patch TRANSDERM 2 patch DAILY ALEIDA Administration Lisinopril 10 mg 08/17/24 09:00 08/17/24 07:56 Lisinopril 10 Mg Tablet PO 10 mg DAILY ALEIDA Administration Rosuvastatin Calcium 10 mg 08/17/24 09:00 08/17/24 07:56 Rosuvastatin 10 Mg Tablet PO 10 mg DAILY ALEIDA Administration Radiology Results: ITS Impressions Chest X-Ray 08/13/24 15:12 Impression: 1: No acute cardiopulmonary disease. Head CT 08/13/24 16:56 IMPRESSION: No acute intracranial findings. Hip/Pelvis X-Ray 08/13/24 17:05 IMPRESSION: No acute osseous abnormality of the bilateral hips and pelvis. 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 Chest CTA 08/14/24 14:09 Impression: No evidence of pulmonary embolus, aortic dissection, or aortic aneurysm. Minimal pleural effusions with probable minimal pulmonary edema versus atelectatic changes in the lungs. Brain MRI 08/15/24 13:47 IMPRESSION: 1. Normal aging brain with mild scattered nonspecific white matter T2 hyperintensity consistent with chronic small vessel ischemic disease. No acute intracranial process. Labs Labs: Laboratory Results - last 24 hr 08/16/24 08/16/24 08/16/24 11:18 11:58 18:13 WBC RBC Hgb 9.6 L Hct 31.5 L MCV MCH MCHC RDW Plt Count MPV Sodium Potassium Chloride Carbon Dioxide Anion Gap BUN Creatinine Estim Creat Clear Calc Estimated GFR Glucose POC Capillary Glucose 109 H 102 Calcium Total Bilirubin AST ALT Alkaline Phosphatase Total Protein Albumin 08/17/24 06:05 WBC 5.7 RBC 3.94 L Hgb 11.7 L Hct 37.1 MCV 94.2 MCH 29.7 MCHC 31.5 L RDW 14.2 Plt Count 251 MPV 10.6 H Sodium 138 Potassium 3.7 Chloride 107 Carbon Dioxide 20 L Anion Gap 11 BUN 14 Creatinine 1.03 H Estim Creat Clear Calc 38 Estimated GFR 52 L Glucose 90 POC Capillary Glucose Calcium 9.1 Total Bilirubin 0.6 AST 34 ALT 21 Alkaline Phosphatase 76 Total Protein 7.0 Albumin 3.5 Quality VTE Prophylaxis VTE prophylaxis: pharmacologic ordered
--- NOTE | 2024-08-17 10:00 | ECG_ITS ---
Test Date: 2024-08-17 10:50:54 Measurements Intervals Jbph[facility] Rate: 102 P: 57 AR: 150 QRS: -4 QRSD: 86 T: 37 QT: 367 QTc: 480 Interpretive Statements SINUS TACHYCARDIA WITH FREQUENT SUPRAVENTRICULAR PREMATURE COMPLEXES POSSIBLE ANTERIOR MYOCARDIAL INFARCTION , PROBABLY OLD [30 ms Q WAVE IN V3/V4, OR R < 0.2 mV IN V4] ABNORMAL ECG Compared to ECG 08/14/2024 10:48:15 Myocardial infarct finding now present Electronically Signed On 08-17-2024 13:32:17 CDT by Sai Workman M.D.
[2024-08-17] MEDS: carvediloL 12.5 MG TABLET PO (22:15)
[2024-08-18] VITALS (11 sets, daily range): BP systolic 111–152; BP diastolic 52–88; PULSE 88–107; RESP 18–20; TEMP 36.2–36.8; O2SAT 96–100
[2024-08-18 06:34] LABS: Hematocrit 26.9 % (37.0-47.0); Hemoglobin 8.3 g/dL (12.0-15.0); Mean Corpuscular HGB Conc 30.9 g/dl (32-36); Mean Corpuscular Hemoglobin 29.9 pg (26-34); Mean Corpuscular Volume 96.8 fl (80-100); Mean Platelet Volume 10.8 fl (7.4-10.4); Platelet Count Result 285 k/mm3 (150-375); Red Blood Count 2.78 M/mm3 (4.2-5.4); Red Cell Distribution Width 14.2 % (11.5-14.5); White Blood Count 4.7 K/mm3 (4.5-10.0)
[2024-08-18 06:45] LABS: Alanine Aminotransferase 18 U/L (6-35); Albumin Level 3.1 g/dL (3.5-5.1); Alkaline Phosphatase 67 U/L (38-126); Anion Gap 12 mmol/L (4-12); Aspartate Amino Transferase 29 U/L (14-36); Bilirubin,Total 0.4 mg/dL (0.2-1.3); Blood Urea Nitrogen 15 mg/dL (7-17); Calcium 8.9 mg/dL (8.4-10.2); Carbon Dioxide 19 mmol/L (22-30); Chloride 109 mmol/L (98-107); Estimated CRCL calculation 40 ml/min; Estimated Glomerular Filt Rate 55; Glucose 73 mg/dL (65-110); Potassium 3.5 mmol/L (3.4-5.0); Sodium 140 mmol/L (137-145)
[2024-08-18] MEDS: LIDOCAINE 5% PATCH 2 PATCH TRANSDERM (07:50)
[2024-08-18] MEDS: ROSUVASTATIN 10 MG TABLET PO (07:51)
[2024-08-18] MEDS: carvediloL 12.5 MG TABLET PO ×2 (07:51→20:44)
[2024-08-18] MEDS: HEPARIN SODIUM 5,000 UNITS/ML VIAL 5000 UNITS SUB-Q ×2 (07:51→20:45)
[2024-08-18] MEDS: AMOXICILLIN/CLAVULANATE K 875-125 MG TAB 1 TABLET PO ×2 (07:51→20:44)
[2024-08-18] MEDS: lisinopriL 10 MG TABLET PO (07:51)
--- NOTE | 2024-08-18 08:34 | PM.IMPN ---
Progress Note: A&P Assessment and Plan (1) Acute respiratory failure with hypoxia: Code(s): J96.01 - Acute respiratory failure with hypoxia Status: Acute Assessment and Plan: SpO2 87% on admission. - Oxygen supplementation: Weaned back to RA with stable saturations - DDx: pneumonia vs edema vs pe vs other - ABG without hypercarbic respiratory failure - EKG: sinus tachycardia - Chest XR unremarkable - D dimer elevated, CTA showing no PE, aortic dissection or aortic aneurysm. Minimal pleural effusions with minimal pulmonary edema vs atelectatic changes noted. Resolved. Remains on RA with saturations in upper 90s. (2) Altered mental status: Code(s): R41.82 - Altered mental status, unspecified Status: Acute Assessment and Plan: Per chart review granddaughter states patient is getting increasingly confused to the point she does not believe she is safe at home. On 08/14 patient AOx3 following commands during assessment however she was quite lethargic and continued to fall asleep after answering questions. Possibly due to patient receiving Haldol and Zyprexa. - Etiology: worsening dementia vs metabolic encephalopathy 2/2 uti - Head CT: no acute intracranial findings - MRI ordered to further rule out CVA as patient is not on any anticoagulation - Chest XR: no acute cardiopulmonary process - ABG without hypercarbic respiratory failure - Glucose running 70-80s. Started on D5NS. If patient tolerating diet okay to DC fluids. - UA concerning for infection, see plan below Patient alert and sitting up in bed, remains AOx3, following commands. Resolved. (3) Acute UTI: Code(s): N39.0 - Urinary tract infection, site not specified Status: Acute Assessment and Plan: - UA: clear appearance with 1+ ketones, positive nitrates, 1+ leukocytes, 3-5 RBC, 11-20 WBC, 4+ bacteria. No squamous cells seen. - UC obtained on 08/13: Ecoli pansensitive, plan to transition to Augmentin PO tomorrow - no previous micro to be reviewed - started on Rocephin on 08/13, transitioned to Augmentin on 08/18 (4) Tachycardia: Code(s): R00.0 - Tachycardia, unspecified Status: Acute Assessment and Plan: HR sustaining 100s with EKG showing sinus tachy on home coreg Coreg 6.25 mg increased to 12.5 mg BID Monitor HR improved on current corg dose. Continue to monitor. Time Spent With Patient Time with patient: 25 - 35 minutes Subjective Date/time seen: 08/18/24 08:34 Interval history: 79 year old female presents to the hospital for worsening altered mental status that is now to the point that grand daughter (TERE) does not believe she is safe at home. Patient is pleasant sitting up comfortably in bed. She is much more alert and oriented today able to hold a normal conversation. She has no complaints at time of assessment denying any chest pain, shortness a breath, palpitations, nausea/vomiting, and abdominal pain. Review of Systems Review of Systems: All systems reviewed & are unremarkable except as noted in HPI and below Exam Narrative: AF HR 88 RR 18 SpO2 99 BP 111/52 General: female in no acute respiratory distress who is nontoxic appearing, sitting up in bed. HEENT: Normocephalic. Atraumatic. Extraocular movement intact. Sclera clear and anicteric. No facial asymmetry. Chest: Lungs are clear to auscultation bilaterally. No wheezes or crackles. CV: Heart was regular rate and rhythm. Abd: Abdomen was soft. Nontender. Nondistended. Positive bowel sounds. Ext: No clubbing, cyanosis, or edema. DP pulses bilaterally. Neuro: Patient is alert and oriented x3. Strength is symmetrical in both upper extremities. Speech is clear. Objective Data Vital Signs Vital Signs: Vital Signs - 24 hr 08/17/24 12:00 08/17/24 13:05 08/17/24 16:00 Temperature 98.1 F Pulse Rate 105 H 104 H 105 H Respiratory Rate 16 Blood Pressure 115/63 Pulse Oximetry 98 Oxygen Delivery 08/17/24 20:00 08/17/24 20:00 08/17/24 20:38 Temperature Pulse Rate 105 H 93 Respiratory Rate 18 Blood Pressure Pulse Oximetry 100 100 Oxygen Delivery Room Air Room Air 08/17/24 22:00 08/17/24 22:15 08/18/24 00:00 Temperature 98.2 F Pulse Rate 104 H 105 H 99 Respiratory Rate 18 Blood Pressure 170/72 H Pulse Oximetry 100 Oxygen Delivery 08/18/24 04:00 08/18/24 05:58 08/18/24 07:51 Temperature 97.1 F L Pulse Rate 104 H 94 102 H Respiratory Rate 18 Blood Pressure 152/88 H Pulse Oximetry 96 Oxygen Delivery Intake/Output Intake/Output: Intake & Output 08/15/24 08/16/24 08/17/24 08/18/24 23:59 23:59 23:59 23:59 Intake Total 2170 2026 674 200 Output Total 300 1100 500 500 Balance 1870 926 174 -300 Meds/Results Medications: Active Medications Generic Name Dose Route Start Last Admin Trade Name Freq PRN Reason Stop Dose Admin Amoxicillin/Clavulanate Potassium 1 tablet 08/18/24 09:00 08/18/24 07:51 Amoxicillin/Clavulanate K 875-125 Mg Tab PO 1 tablet Q12HR ALEIDA Administration Carvedilol 12.5 mg 08/17/24 21:00 08/18/24 07:51 Carvedilol 12.5 Mg Tablet PO 12.5 mg Q12HR ALEIDA Administration Olanzapine 5 mg/ Sterile Water 0 mg 08/14/24 00:51 08/14/24 00:54 2.1 ml IM 5 mg Q8HR PRN Administration Agitation Heparin Sodium (Porcine) 5,000 units 08/13/24 21:00 08/18/24 07:51 Heparin Sodium 5,000 Units/Ml Vial SUB-Q 5,000 units Q12HR ALEIDA Administration Hydralazine HCl 10 mg 08/13/24 19:21 Hydralazine Hcl 20 Mg/Ml Vial IV PUSH Q8H PRN Blood Pressure - High Lidocaine 2 patch 08/15/24 13:35 08/18/24 07:50 Lidocaine 5% Patch TRANSDERM 2 patch DAILY ALEIDA Administration Lisinopril 10 mg 08/17/24 09:00 08/18/24 07:51 Lisinopril 10 Mg Tablet PO 10 mg DAILY ALEIDA Administration Rosuvastatin Calcium 10 mg 08/17/24 09:00 08/18/24 07:51 Rosuvastatin 10 Mg Tablet PO 10 mg DAILY ALEIDA Administration Radiology Results: ITS Impressions Chest X-Ray 08/13/24 15:12 Impression: 1: No acute cardiopulmonary disease. Head CT 08/13/24 16:56 IMPRESSION: No acute intracranial findings. Hip/Pelvis X-Ray 08/13/24 17:05 IMPRESSION: No acute osseous abnormality of the bilateral hips and pelvis. 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 Chest CTA 08/14/24 14:09 Impression: No evidence of pulmonary embolus, aortic dissection, or aortic aneurysm. Minimal pleural effusions with probable minimal pulmonary edema versus atelectatic changes in the lungs. Brain MRI 08/15/24 13:47 IMPRESSION: 1. Normal aging brain with mild scattered nonspecific white matter T2 hyperintensity consistent with chronic small vessel ischemic disease. No acute intracranial process. Labs Labs: Laboratory Results - last 24 hr 08/18/24 05:57 WBC 4.7 RBC 2.78 L Hgb 8.3 L D Hct 26.9 L MCV 96.8 MCH 29.9 MCHC 30.9 L RDW 14.2 Plt Count 285 MPV 10.8 H Sodium 140 Potassium 3.5 Chloride 109 H Carbon Dioxide 19 L Anion Gap 12 BUN 15 Creatinine 0.97 Estim Creat Clear Calc 40 Estimated GFR 55 L Glucose 73 Calcium 8.9 Total Bilirubin 0.4 AST 29 ALT 18 Alkaline Phosphatase 67 Total Protein 6.0 L Albumin 3.1 L Quality VTE Prophylaxis VTE prophylaxis: pharmacologic ordered
[2024-08-18 08:52] LABS: Hematocrit 28.9 % (37.0-47.0); Hemoglobin 9.2 g/dL (12.0-15.0)
--- NOTE | 2024-08-18 10:50 | PCNFU ---
Nutrition Follow-Up Complete: Inadequate oral intake related to altered mental status as evidenced by NPO Goal:Diet advancement Improve PO intake when diet is advanced Pt meeting goal. Continue with new goal of 50% or greater intake of meals. Pt current nutrition is Soft and bite sized level 6, thin liquids, Ensure Enlive BID. Nutrition recommendation: continue with current plan of care Last recorded weight is 76 kg. Bowel Motility: +BM 08/17 Labs Reviewed: Hgb:9.2, HCT:28.9, Alb: 3.1, GFR:55 Meds Noted: heparin Skin: WNL Additional Notes: Pt was upgraded to a pureed diet with mildly thick liquids over the weekend, evaluated again by speech with new orders for soft and bite sized level 6 and thin liquids. PO intake 50-75% at this time. Pt did not really like the food on pureed, encouraged intake of the soft and bite size foods which will be much more typical menu items. Encouraged Ensure intake. Agree with orders. Monitoring diet orders, weights, labs, plan of care Follow up in 5 days
--- NOTE | 2024-08-18 13:33 | PCPTNOTE ---
Patent very emotional this after noon and crying when I entered the room. Patient states I don't know what is going to happen to me. If I go to rehab I will never get back home. I explained to patient the process of going to a SNF to improve strength and mobility and encouraged patient to participate in PT to improve. Patient states You don't have to try and be so positive. I know that I won't get better. Patient refused to participate in PT. I offered to contact the hospital [facility] to visit with her and she was not interested initially, however before I left the room she requested to speak to the Will. [facility] was contacted and he will visit with patient this afternoon. PT will continue to follow.
[2024-08-19] VITALS (7 sets, daily range): BP systolic 122–126; BP diastolic 61–81; PULSE 69–110; RESP 18–20; TEMP 36.6–36.8; O2SAT 95–99
[2024-08-19 06:31] LABS: Hematocrit 27.8 % (37.0-47.0); Hemoglobin 8.3 g/dL (12.0-15.0); Mean Corpuscular HGB Conc 29.9 g/dl (32-36); Mean Corpuscular Volume 100.4 fl (80-100); Mean Platelet Volume 10.3 fl (7.4-10.4); Platelet Count Result 257 k/mm3 (150-375); Red Blood Count 2.77 M/mm3 (4.2-5.4); Red Cell Distribution Width 14.3 % (11.5-14.5); White Blood Count 5.9 K/mm3 (4.5-10.0)
[2024-08-19 06:42] LABS: Alanine Aminotransferase 18 U/L (6-35); Alkaline Phosphatase 62 U/L (38-126); Anion Gap 9 mmol/L (4-12); Aspartate Amino Transferase 28 U/L (14-36); Bilirubin,Total 0.3 mg/dL (0.2-1.3); Blood Urea Nitrogen 17 mg/dL (7-17); Carbon Dioxide 20 mmol/L (22-30); Chloride 110 mmol/L (98-107); Estimated CRCL calculation 43 ml/min; Estimated Glomerular Filt Rate 59; Glucose 84 mg/dL (65-110); Potassium 3.5 mmol/L (3.4-5.0); Sodium 139 mmol/L (137-145)
--- NOTE | 2024-08-19 08:57 | PM.IMPN ---
Progress Note: A&P Assessment and Plan (1) Acute respiratory failure with hypoxia: Code(s): J96.01 - Acute respiratory failure with hypoxia Status: Acute Assessment and Plan: SpO2 87% on admission. - Oxygen supplementation: Weaned back to RA with stable saturations - DDx: pneumonia vs edema vs pe vs other - ABG without hypercarbic respiratory failure - EKG: sinus tachycardia - Chest XR unremarkable - D dimer elevated, CTA showing no PE, aortic dissection or aortic aneurysm. Minimal pleural effusions with minimal pulmonary edema vs atelectatic changes noted. Resolved. Remains on RA with saturations in upper 90s. (2) Altered mental status: Code(s): R41.82 - Altered mental status, unspecified Status: Acute Assessment and Plan: Per chart review granddaughter states patient is getting increasingly confused to the point she does not believe she is safe at home. On 08/14 patient AOx3 following commands during assessment however she was quite lethargic and continued to fall asleep after answering questions. Possibly due to patient receiving Haldol and Zyprexa. - Etiology: worsening dementia vs metabolic encephalopathy 2/2 uti - Head CT: no acute intracranial findings - MRI ordered to further rule out CVA as patient is not on any anticoagulation - Chest XR: no acute cardiopulmonary process - ABG without hypercarbic respiratory failure - Glucose running 70-80s. Started on D5NS. If patient tolerating diet okay to DC fluids. - UA concerning for infection, see plan below Patient alert and sitting up in bed, remains AOx3, following commands. Resolved. (3) Acute UTI: Code(s): N39.0 - Urinary tract infection, site not specified Status: Acute Assessment and Plan: - UA: clear appearance with 1+ ketones, positive nitrates, 1+ leukocytes, 3-5 RBC, 11-20 WBC, 4+ bacteria. No squamous cells seen. - UC obtained on 08/13: Ecoli pansensitive, plan to transition to Augmentin PO tomorrow - no previous micro to be reviewed - started on Rocephin on 08/13, transitioned to Augmentin on 08/18 (4) Tachycardia: Code(s): R00.0 - Tachycardia, unspecified Status: Acute Assessment and Plan: HR sustaining 100s with EKG showing sinus tachy on home coreg Coreg 6.25 mg increased to 12.5 mg BID Monitor HR improved on current corg dose. Continue to monitor. Subjective Date/time seen: 08/19/24 08:57 Interval history: 79 year old female presents to the hospital for worsening altered mental status that is now to the point that grand daughter (POA) does not believe she is safe at home. Review of Systems Review of Systems: All systems reviewed & are unremarkable except as noted in HPI and below Exam Narrative: AF HR General: female in no acute respiratory distress who is nontoxic appearing, sitting up in bed. HEENT: Normocephalic. Atraumatic. Extraocular movement intact. Sclera clear and anicteric. No facial asymmetry. Chest: Lungs are clear to auscultation bilaterally. No wheezes or crackles. CV: Heart was regular rate and rhythm. Abd: Abdomen was soft. Nontender. Nondistended. Positive bowel sounds. Ext: No clubbing, cyanosis, or edema. DP pulses bilaterally. Neuro: Patient is alert and oriented x3. Strength is symmetrical in both upper extremities. Speech is clear. Objective Data Vital Signs Vital Signs: Vital Signs - 24 hr 08/18/24 12:00 08/18/24 14:00 08/18/24 16:00 Temperature 97.1 F L Pulse Rate 100 88 91 Respiratory Rate 18 Blood Pressure 111/52 L Pulse Oximetry 99 08/18/24 20:00 08/18/24 20:44 08/18/24 20:54 Temperature 98.3 F Pulse Rate 97 98 100 Respiratory Rate 20 Blood Pressure 129/56 L Pulse Oximetry 100 08/19/24 00:00 08/19/24 04:00 08/19/24 06:00 Temperature 98.2 F Pulse Rate 104 H 99 77 Respiratory Rate 20 Blood Pressure 122/81 Pulse Oximetry 95 Intake/Output Intake/Output: Intake & Output 08/16/24 08/17/24 08/18/24 08/19/24 23:59 23:59 23:59 23:59 Intake Total 2026 674 1466 Output Total 4947 976 0223 600 Balance 926 174 266 -600 Meds/Results Medications: Active Medications Generic Name Dose Route Start Last Admin Trade Name Freq PRN Reason Stop Dose Admin Amoxicillin/Clavulanate Potassium 1 tablet 08/18/24 09:00 08/18/24 20:44 Amoxicillin/Clavulanate K 875-125 Mg Tab PO 1 tablet Q12HR ALEIDA Administration Carvedilol 12.5 mg 08/17/24 21:00 08/18/24 20:44 Carvedilol 12.5 Mg Tablet PO 12.5 mg Q12HR ALEIDA Administration Olanzapine 5 mg/ Sterile Water 0 mg 08/14/24 00:51 08/14/24 00:54 2.1 ml IM 5 mg Q8HR PRN Administration Agitation Heparin Sodium (Porcine) 5,000 units 08/13/24 21:00 08/18/24 20:45 Heparin Sodium 5,000 Units/Ml Vial SUB-Q 5,000 units Q12HR ALEIDA Administration Hydralazine HCl 10 mg 08/13/24 19:21 Hydralazine Hcl 20 Mg/Ml Vial IV PUSH Q8H PRN Blood Pressure - High Lidocaine 2 patch 08/15/24 13:35 08/18/24 07:50 Lidocaine 5% Patch TRANSDERM 2 patch DAILY ALEIDA Administration Lisinopril 10 mg 08/17/24 09:00 08/18/24 07:51 Lisinopril 10 Mg Tablet PO 10 mg DAILY ALEIDA Administration Rosuvastatin Calcium 10 mg 08/17/24 09:00 08/18/24 07:51 Rosuvastatin 10 Mg Tablet PO 10 mg DAILY ALEIDA Administration Radiology Results: ITS Impressions Chest X-Ray 08/13/24 15:12 Impression: 1: No acute cardiopulmonary disease. Head CT 08/13/24 16:56 IMPRESSION: No acute intracranial findings. Hip/Pelvis X-Ray 08/13/24 17:05 IMPRESSION: No acute osseous abnormality of the bilateral hips and pelvis. 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 Chest CTA 08/14/24 14:09 Impression: No evidence of pulmonary embolus, aortic dissection, or aortic aneurysm. Minimal pleural effusions with probable minimal pulmonary edema versus atelectatic changes in the lungs. Brain MRI 08/15/24 13:47 IMPRESSION: 1. Normal aging brain with mild scattered nonspecific white matter T2 hyperintensity consistent with chronic small vessel ischemic disease. No acute intracranial process. Labs Labs: Laboratory Results - last 24 hr 08/18/24 08/19/24 08:47 06:16 WBC 5.9 RBC 2.77 L Hgb 9.2 L 8.3 L Hct 28.9 L 27.8 L MCV 100.4 H MCH 30.0 MCHC 29.9 L RDW 14.3 Plt Count 257 MPV 10.3 Sodium 139 Potassium 3.5 Chloride 110 H Carbon Dioxide 20 L Anion Gap 9 BUN 17 Creatinine 0.92 Estim Creat Clear Calc 43 Estimated GFR 59 Glucose 84 Calcium 9.0 Total Bilirubin 0.3 AST 28 ALT 18 Alkaline Phosphatase 62 Total Protein 6.0 L Albumin 3.0 L Quality VTE Prophylaxis VTE prophylaxis: pharmacologic ordered
[2024-08-19] MEDS: HEPARIN SODIUM 5,000 UNITS/ML VIAL 5000 UNITS SUB-Q (09:52)
[2024-08-19] MEDS: lisinopriL 10 MG TABLET PO (09:53)
[2024-08-19] MEDS: ROSUVASTATIN 10 MG TABLET PO (09:53)
[2024-08-19] MEDS: carvediloL 12.5 MG TABLET PO (09:53)
[2024-08-19] MEDS: LIDOCAINE 5% PATCH 2 PATCH TRANSDERM (09:53)
[2024-08-19] MEDS: AMOXICILLIN/CLAVULANATE K 875-125 MG TAB 1 TABLET PO (10:35)
--- NOTE | 2024-08-19 13:04 | P.DS_ITS ---
DS: Admitting Diagnosis Discharge Date 08/19/24 Admitting Diagnosis acute respiratory failure with hypoxia AMS acute UTI tachycardia DS: Discharge Diagnosis Discharge Diagnosis (1) Acute respiratory failure with hypoxia: Code(s): J96.01 - Acute respiratory failure with hypoxia Status: Acute (2) Altered mental status: Code(s): R41.82 - Altered mental status, unspecified Status: Acute (3) Acute UTI: Code(s): N39.0 - Urinary tract infection, site not specified Status: Acute (4) Tachycardia: Code(s): R00.0 - Tachycardia, unspecified Status: Acute DS: Summary Hospital Course Reason for hospitalization: acute respiratory failure with hypoxia AMS acute UTI tachycardia Hospital Course: 79 year old female presents to the hospital for worsening altered mental status that is now to the point that grand daughter (TERE) does not believe she is safe at home. Patient was brought to the hospital and was screaming and inconsolable. In the ED the patient was given Haldol, Ativan, and Zyprexa and was sedated to where the ED could treat her. Head CT showed no acute intracranial findings. MRI ordered to further rule out CVA as patient is not on any anticoagulation was unremarkable. Chest XR showed no acute cardiopulmonary process. UA concerning for infection, started on IV antibiotics. Culture grew ecoli and patient transitioned to oral antibiotics which were completed during admission. AMS likely secondary to acute infection. Patients altered mental status resolved during admission and she returned to baseline AOx3. Patient required oxygen supplementation, likely secondary to sedation receiving in the ER. ABG without hypercarbic respiratory failure. Given patients new O2 requirement, tachycardia, and D dimer elevation a CTA was obtained which showed no PE, aortic dissection or aortic aneurysm. Minimal pleural effusions with minimal pulmonary edema vs atelectatic changes noted. Patient was able to be weaned back to room air prior to discharge. Throughout admission patient was notably tachycardic with EKG showing sinus tachycardia on her current home dose of Coreg. Coreg increased from 6.25 mg to 12.5 mg b.i.d. heart rate improved on this dosage as well as blood pressures. Patient remain on this dose and follow up with her primary care provider. Patient has no complaints at time of discharge denying chest pain, shortness a breath, palpitations, nausea/vomiting, and abdominal pain. Patient discharged to SNF in a stable condition. She is to follow up with her primary care provider in 1 week. Status at Discharge Functional status at discharge: uses cane/walker Time Spent with Patient Time attestation: Total time spent providing and/or coordinating discharge services: Time spent: Greater than 30 minutes Exam Narrative: AF HR 77 RR 20 SPO2 95 BP 122/81 General: female in no acute respiratory distress who is nontoxic appearing, sitting up in bed. HEENT: Normocephalic. Atraumatic. Extraocular movement intact. Sclera clear and anicteric. No facial asymmetry. Chest: Lungs are clear to auscultation bilaterally. No wheezes or crackles. CV: Heart was regular rate and rhythm. Abd: Abdomen was soft. Nontender. Nondistended. Positive bowel sounds. Ext: No clubbing, cyanosis, or edema. DP pulses bilaterally. Neuro: Patient is alert and oriented x3. Strength is symmetrical in both upper extremities. Speech is clear. DS: Data Data Completed and Pending Completed studies during hospitalization: Brain MRI Chest CTA Hip/pelvis XR Head CT Chest XR Labs on day of discharge: Labs from last 24 hours 08/19/24 06:16 WBC 5.9 RBC 2.77 L Hgb 8.3 L Hct 27.8 L MCV 100.4 H MCH 30.0 MCHC 29.9 L RDW 14.3 Plt Count 257 MPV 10.3 Sodium 139 Potassium 3.5 Chloride 110 H Carbon Dioxide 20 L Anion Gap 9 BUN 17 Creatinine 0.92 Estim Creat Clear Calc 43 Estimated GFR 59 Glucose 84 Calcium 9.0 Total Bilirubin 0.3 AST 28 ALT 18 Alkaline Phosphatase 62 Total Protein 6.0 L Albumin 3.0 L Preliminary micro results at discharge 08/13/24 15:53 Blood Culture - Preliminary Blood Discharge Plan Discharge Attending physician on discharge: Gerson Joiner Discharging Clinician: Cande Kim Anticipated Discharge Date/Time: 08/19/24 12:53 Patient Disposition: SNF Activity: as tolerated Diet: as tolerated and heart healthy Discharge Instructions: Discharge disposition: Patient admitted to the hospital for increased confusion, resolved during admission All imaging negative Diagnosed with a urinary tract infection. Antibiotic course completed during admission Eat well balanced meals and stay hydrated Keep active to remain strong Avoid use of diapers or pads Good gary Care every 2 hours Trend urine output Patient tachycardic throughout admission Coreg dose increased from 6.25 mg to 12.5 mg twice a day Continue to monitor heart rates Monitor blood pressures Take caution while standing, rising, or moving Change positions slowly taking a break between each position change If you standing feel dizzy sit back down and take a break Follow up with primary care provider about medication change Encouraged to continue with yearly vaccinations Return to the emergency department if he developed sudden shortness of breath, chest pain, nausea, vomiting, upset stomach or intractable diarrhea Return to the emergency department if you develop fever greater than 101.5 Follow-up with the primary care physician within 1-2 weeks Thank you for choosing [facility] for your healthcare needs Patient Instructions: Carvedilol (By mouth), Urinary Tract Infection in Older Adults (DC) Patient Language: Sami Stand Alone Forms: General Discharge Information Follow-up/Referrals: Kendra,Graham CADET [Other] - 1 Week Discharge Medications: Continued lisinopril 10 mg tablet 10 mg PO DAILY rosuvastatin 10 mg tablet 10 mg PO DAILY multivitamin [Daily Multi-Vitamin] Tablet 1 tablet PO DAILY lorazepam 0.5 mg tablet 0.5 mg PO PRN PRN (Reason: anxiety) trazodone 50 mg tablet 25 mg PO HS Changed carvedilol 6.25 mg tablet 12.5 mg PO Q12H Qty: 60 0RF Date of admission: 08/13/24 17:29 Primary Care Provider: Kendra,Graham CADET Admitting Provider: Tri Saenz Attending physician on admission: Cande Kim Condition: Stable Hospitalist MIPS Heart Failure (Exclusion) Patient has history of Heart Transplant or Left Ventricular Assistive Device?: No IF YES, STOP HERE Heart Failure (Qualifier) Patient has current or prior documentation of LVEF less than or equal to 40%, or mod/servere depressed LVSF?: No IF NO, STOP HERE
--- NOTE | 2024-08-19 14:45 | PC.NURSE ---
Discussed discharge to [facility] and transportation by private vehicle. Expressed concern for fall risk with increased weakness. Sharla, Granddaughter, approved transportation by ambulance for safety. Lawanda, in Care Coordination, notified per telephone.
== END 2024-08-19 15:48 | DRG 689 ==
LOC: ANHED 17:28 → ANH3MEDSUR 18:11
PROVIDERS: Nurse Practitioner Gerontology; Admitting Provider Internal Medicine; Emergency Provider Emergency Medicine; Visit Provider Student in an Organized Health Care Education/Training Program
DX: N39.0 Urinary tract infection, site not specified (principal); G93.41 Metabolic encephalopathy; J96.01 Acute respiratory failure with hypoxia; B96.20 Unspecified Escherichia coli [E. coli] as the cause of diseases classified elsewhere; I16.0 Hypertensive urgency; R00.0 Tachycardia, unspecified; E86.0 Dehydration; F03.90 Unspecified dementia, unspecified severity, without behavioral disturbance, psychotic disturbance, mood disturbance, and anxiety
CPT/HCPCS: 36415; 36600; 70450; 70551; 71045; 71275; 73521; 80048; 80053; 81001; 82805; 82948; 83605; 84484; 85014; 85018; 85025; 85027; 85380; 85610; 85730; 87040; 87086; 87186; 92526; 92610; 93005; 96365; 96372; 97110; 97161; 97165; 97530; 97535; 99285; A9270; J0696; J1630; J1644; J2060; J2359; J7030; J7040; J7042; J7120; Q9967

== ENCOUNTER 2024-10-10 11:16 | Emergency (ER) | payer MEDICARE, BC, SELFPAY ==
--- NOTE | ~2024-10-10 | XR_ITS ---
EXAM/PROCEDURE: XR chest 1V portable - 10/10/2024 12:49 CDT HISTORY: 79 years old Female with weakness TECHNIQUE: Two view(s) of the chest. COMPARISON: None available. FINDINGS: LUNGS/ PLEURA: No focal consolidation. Mild perihilar bronchial wall thickening. HEART/ MEDIASTINUM: Heart appears normal in size. BONES: Degenerative changes. OTHER: Visualized upper abdomen is unremarkable. IMPRESSION: No focal consolidation. Mild perihilar bronchial wall thickening, findings suggestive of respiratory bronchiolitis. Reviewed, dictated and finalized at location A. IMPRESSION: No focal consolidation. Mild perihilar bronchial wall thickening, findings sugg estive of respiratory bronchiolitis.
[2024-10-10 11:18] VITALS: BP 131/68; PULSE 101; RESP 20; TEMP 36.6; O2SAT 95
[2024-10-10 11:41] VITALS: O2SAT 95
--- OUTSIDE RECORDS SUMMARY | 2024-10-10 12:03 | XMS_ITS | Clinical Summary ---
Author Organization [facility] Address [address] [place] [id number] Care Team Providers Care Intake Coordinator Name Role Phone Kendra BAILEY MD, Graham [...] 3 10/11/19 24 Active Misc. Devices (TABLET CUTTER-WHARF HELPER) MiscIndications:Ad justment insomnia Use as directed to [...] the skin daily. 06/24/19 25 Active NYAMYC 103803 UNIT/GM powder 06/28/19 25 Active Active Problems [...] Encounters Date Type Department Care Team Description 10/08/[address] [phone] Graham Gardner II, MD After Hours Page (Pt called after hours line requesting an appt with Dr. Gardner. Made an attempt to schedule appt but pt stated that she will have to call back after 12 when her rn progressive care unit arrives. ) 10/01/[address] [phone] Graham Gardner II, MD FYI 08/28/[address] [phone] Graham Gardner II, MD FYI 08/15/2024 Scan HEALTH INFO SRVCS Scanned, [facility] MRI (SCAN) 08/14/2024 Scan MG HEALTH INFO SRVCS Scanned, [facility] 08/13/[address] [phone] Graham Gardner II, MD Advice 08/03/2024 Results Follow-Up [address] [phone] Graham Gardner II, MD CBC W/DIFF AUTOMATED, COMPREHENSIVE METABOLIC PANEL, LIPID PANEL, TSH W/REFLEX 07/15/2024 1:20 PM CDT Office Visit [address] [phone] Graham Gardner II, MD TCM (Patient presents for TCM/hospital follow up for altered mental status and falls) 07/15/2024 Travel 07/14/2024 Orders Only [facility] [place] [address] [place] [address] Graham Gardner II, MD from Last 3 Months Immunizations Immunization Administration [...] 83.5 kg (184 lb) 05/01/2024 2:55 PM ACID PURIFIER Height 165.1 cm (5' 5) 09/27/2023 1:26 PM CDT Body Mass Index 30.62 09/27/2023 1:26 PM CDT Plan of Treatment Health Maintenance Due [...] 03/09/2023, 01/05/2021, 06/13/2020, Additional history exists PHQ-2 ([facility]) 04/02/2024 09/27/2023 Hepatitis C Completed 01/26/2022 Meningococcal [...] Procedure Name Priority Date/Time Associated Diagnosis Comments MRI GENERIC 08/15/2024 TSH W/REFLEX Routine 08/01/2024 12:47 PM CDT [...] Recently Relevant to Health Maintenance Results * MRI GENERIC (08/15/2024) Anatomical Region Laterality Modality Other 08/15/2024 us [facility] Scanned SCANNING Final Resu lt * (ABNORMAL) TSH W/REFLEX (08/01/2024 12:47 PM CDT) Pathologist [facility] TSH 4.82(H) 0.40 - 4.50 mIU/L [facility] FREE T4 1.2 0.8 - 1.8 ng/dL [facility] 08/01/2024 12:4 7 PM CDT 08/01/2024 12:47 PM CDT Narrative Resulting Agency Comment Performing Organization Information: Site ID: [place] Name: [facility] Address: [address] [place] [id number] Director: Lety Weiss MD Graham Gardner II, MD LABORATORY Final R esult [facility] [id number] [place] [id number], * (ABNORMAL) COMPREHENSIVE METABOLIC PANEL (08/01/2024 12:47 PM CDT) [facility] GLUCOSE 84 65 - 99 mg/dL [facility] Comment: Fasting reference interval BUN 25 7 - 25 mg/dL [facility] CREATININE S/P/B 1.04(H) 0.60 - 1.00 mg/dL [facility] GFR ESTIMATE 55(L) > OR = 60 mL/min/1. 73m2 [facility] BUN CREATININE RATIO 24(H) 6 - 22 (calc) [facility] SODIUM S/P/B 145 135 - 146 mmol/L [facility] POTASSIUM S/P/B 3.7 3.5 - 5.3 mmol/L [facility] CHLORIDE S/P/B 111(H) 98 - 110 mmol/L [facility] CO2 26 20 - 32 mmol/L [facility] CALCIUM S/P/B 9.7 8.6 - 10.4 mg/dL [facility] TOTAL PROTEIN S/P/B 6.4 6.1 - 8.1 g/dL [facility] ALBUMIN S/P/B 3.7 3.6 - 5.1 g/dL [facility] GLOBULIN 2.7 1.9 - 3.7 g/dL (calc) [facility] ALBUMIN/GLOBULIN RATIO 1.4 1.0 - 2.5 (calc) [facility] BILIRUBIN TOTAL S/P/B 0.3 0.2 - 1.2 mg/dL [facility] ALKALINE PHOSPHATASE S/P/B 62 37 - 153 U/L [facility] AST 16 10 - 35 U/L [facility] ALT 11 6 - 29 U/L [facility] 08/01/2024 12:4 7 PM CDT 08/01/2024 12:47 PM CDT Narrative Resulting Agency Comment Performing Organization Information: Site ID: [place] Name: [facility] Address: [address] [place] [id number] Director: Lety Weiss MD Graham Gardner II, MD LABORATORY Final R esult [address] [id number], * LIPID PANEL (08/01/2024 12:47 PM CDT) CHOLESTEROL 151 <200 mg/dL [facility] HDL 51 > OR = 50 mg/dL [facility] TRIGLYCERIDES 97 <150 mg/dL [facility] LDL (CALCULATED) 81 mg/dL (calc) [facility] Comment: Reference range: <100 Desirable range <100 mg/dL for primary prevention; <70 mg/dL for patients with CHD or diabetic patients with > or = 2 CHD risk factors. LDL-C is now calculated using the Hazel calculation, which is a validated novel method providing better accuracy than the Friedewald equation in the estimation of LDL-C. Venkata GARICA et al. LISA. 2013;310(19): 0063-6548 (http://education.[employer]/faq/TBG505) CHOL/HDL RATIO 3.0 <5.0 (calc) [facility] NON HDL CHOLESTEROL 100 <130 mg/dL (calc) [facility] Comment: For patients with diabetes plus 1 major ASCVD risk factor, treating to a non-HDL-C goal of <100 mg/dL (LDL-C of <70 mg/dL) is considered a therapeutic option. 08/01/2024 12:4 7 PM CDT 08/01/2024 12:47 PM CDT Narrative Resulting Agency Comment Performing Organization Information: Site ID: [place] Name: [facility] Address: [address] [place] [address] Director: Lety Weiss MD Graham Gardner II, MD LABORATORY Final R esult [facility] [address] [place] [address], * (ABNORMAL) CBC W/DIFF AUTOMATED (08/01/2024 12:47 PM CDT) WBC 7.6 3.8 - 10.8 Thousand/ uL [facility] RBC 3.14(L) 3.80 - 5.10 Million/u L [facility] HGB 9.4(L) 11.7 - 15.5 g/dL [facility] HCT 30.2(L) 35.0 - 45.0 % [facility] MCV 96.2 80.0 - 100.0 fL [facility] MCH 29.9 27.0 - 33.0 pg [facility] MCHC 31.1(L) 32.0 - 36.0 g/dL [facility] Comment: For adults, a slight decrease in the calculated MCHC value (in the range of 30 to 32 g/dL) is most likely not clinically significant; however, it should be interpreted with caution in correlation with other red cell parameters and the patient's clinical condition. RDW 15.2(H) 11.0 - 15.0 % [facility] PLT 346 140 - 400 Thousand/ uL [facility] MPV 10.3 7.5 - 12.5 fL [...] Agency Comment Performing Organization Information: Site ID: [place] Name: [facility] Address: [address] [place] [phone] Director: Lety Weiss MD Graham Gardner II, MD LABORATORY Final R esult [facility] [id number] [place] [address], [place] [address] AB * HEPATITIS C ANTIBODY W/RFX TO HCV [...] a test for HCV RNA (test code 90651) is suggested. For additional information please refer to http://education.[employer]/faq/NWI41m9 (This link is being provided for informational/ educational purposes only.) 01/26/2022 7:16 AM CDT 01/26/2022 7:17 AM CDT Narrative [facility] - 01/27/2022 9:15 AM CDT FASTING:YES FASTING: YES us Shawn Roy MD LABORATORY Final Resul t [facility] [id number] [place] [phone] from Last 3 Months or Most Recently Relevant to Health Maintenance Insurance MEDICARE [facility] Advance Directives Documents on File Type Date Recorded 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
--- OUTSIDE RECORDS SUMMARY | 2024-10-10 12:03 | XMS_ITS | Encounter Summary ---
Author Organization [facility] - [facility] Address [address] [place] [address] Care Team Providers Care Stock Feeder Name Role Phone Kendra BAILEY MD, Graham Mendez Primary Care Provider Encounter Details Date Type Department Care Team (Late st Contact Info) Description 04/01/2024 [employer] Message Enc [facility] Medical Group Multispecialty Care - [facility], [address] [address] [place], [facility] Provider reschedule Social History Tobacco Use [...] on file documented as of this encounter Visit Diagnoses Not on filedocumented in this encounter Additional Health Concerns Assessment Noted Time PHQ-9 Depression Total Score: 0 02/28/20 22 12:56 PM RUG WASHER documented as of this encounter Care Teams Stock Feeder Relationship Specialty Start Date End Date Graham Gardner II, MD [address] [place] [id number] PCP - General FAMILY PRACTICE 12/10/21 documented as of this encounter
--- OUTSIDE RECORDS SUMMARY | 2024-10-10 12:03 | XMS_ITS | Clinical Summary ---
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 A 1 year screening mammogram is recommended. The patient has been or will be contacted. The patient will be entered into an automated reminder system to schedule a mammogram in one year. Electronically signed by: Dr. Stephen Moscoso nh/:03/30/2014 13:15:05 Hand Painter: Shama MARTINEZ (Mynor)(Ofelia), [facility] letter sent: Normal Exam Reading location: BI-RADS: 1 Negative [EOD] Narrative 03/30/2014 1:16 PM REPAIRER SASH AND DOOR - ABDIRAHMAN BILATERAL SCREENING W/CAD BILATERAL DIGITAL SCREENING MAMMOGRAM WITH CAD: 03/30/2014 The study was acquired using full field digital technology and interpreted from soft copy. Current study was also evaluated with ICAD version 7.2. COMPARISONS: Comparison is made to exams dated: 12/09/2012 mammogram and 10/06/2011 mammogram - [facility]. BREAST TISSUE:There are scattered fibroglandular densities [...] dated: 12/09/2012 mammogram and 10/06/2011 mammogram - [facility]. BREAST TISSUE:There are scattered fibroglandular densities [...] signed by: Dr. Stephen Moscoso nh/:03/30/2014 13:15:05 Hand Painter: Shama Fall)(Ofelia), [facility] letter sent: Normal Exam Reading location: BI-RADS: 1 Negative [EOD] Scout Pak MD IMG MAMMO PROCEDURES Fi nal Result from Last 3 Months or Most Recently Relevant to Health Maintenance Insurance MEDICARE [facility] MEDICARE [facility] Care Teams Mountain Bike Guide Relationship Specialty Start Date End Date Graham Gardner II, MD PCP - General Family Practice 02/14/22
--- OUTSIDE RECORDS SUMMARY | 2024-10-10 12:03 | XMS_ITS | Encounter Summary ---
Author Organization 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
--- OUTSIDE RECORDS SUMMARY | 2024-10-10 12:03 | XMS_ITS | Referral Summary ---
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 A 1 year screening mammogram is recommended. The patient has been or will be contacted. The patient will be entered into an automated reminder system to schedule a mammogram in one year. Electronically signed by: Dr. Stephen Moscoso nh/:03/30/2014 13:15:05 Powerhouse Electrician Apprentice: Shama MARTINEZ (R)(M), [facility] letter sent: Normal Exam Reading location: BI-RADS: 1 Negative [EOD] Narrative 03/30/2014 1:16 PM HONING MACHINE OPERATOR SEMIAUTOMATIC - ABDIRAHMAN BILATERAL SCREENING W/CAD BILATERAL DIGITAL SCREENING MAMMOGRAM WITH CAD: 03/30/2014 The study was acquired using full field digital technology and interpreted from soft copy. Current study was also evaluated with ICAD version 7.2. COMPARISONS: Comparison is made to exams dated: 12/09/2012 mammogram and 10/06/2011 mammogram - [facility]. BREAST TISSUE:There are scattered fibroglandular densities [...] dated: 12/09/2012 mammogram and 10/06/2011 mammogram - [facility]. BREAST TISSUE:There are scattered fibroglandular densities [...] signed by: Dr. Stephen Moscoso nh/:03/30/2014 13:15:05 Powerhouse Electrician Apprentice: Shama De Jesus RT (R)(M), [facility] letter sent: Normal Exam Reading location: BI-RADS: 1 Negative [EOD] Scout Pak MD IMG MAMMO PROCEDURES Fi nal Result from Last 3 Months or Most Recently Relevant to Health Maintenance Insurance MEDICARE [facility] MEDICARE [facility] Care Teams Classroom Coordinator Relationship Specialty Start Date End Date Graham Gardner II, MD PCP - General Family Practice 02/14/22
--- OUTSIDE RECORDS SUMMARY | 2024-10-10 12:03 | XMS_ITS | Encounter Summary ---
Author Organization [facility] Facility Care Team Providers Care Nuclear Physicist Name Role Phone Shawn Roy MD Primary Care Provider + [phone] Kendra BAILEY MD, Graham Palomino Primary Care Provid er Encounter Details Date Type Department Care Team (Latest Contact Info) Description 07/30/2017 Orders Only MMG CLINCONV ProviderElizabeth MD [address] [place] [address] Social History Tobacco Use Types Packs/Day Years Used Date Smoking Tobacco: Never Assessed Comments Unknown Sex and Gender Information Value Date Recorded Sex Assigned at Not on file 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
[2024-10-10 12:30] VITALS: BP 156/72; PULSE 97; RESP 15; O2SAT 94
--- NOTE | 2024-10-10 12:36 | PC.NURSE ---
patient a/o x 4 and states that she does not want anything done at all. pt states to go help someone who actually needs your help
--- NOTE | 2024-10-10 13:42 | PC.NURSE ---
patient continues to refuse treatment, and care, discussed with granddaughter.
--- NOTE | 2024-10-10 14:09 | PC.NURSE ---
patient a/o x 4, able to answer appropriate questions - does not want labs or testing done, patient granddaughter at bedside. Melissa with care coordination coming to speak with granddaughter and patient
[2024-10-10 14:30] VITALS: BP 143/69; PULSE 93; RESP 15; O2SAT 92
[2024-10-10 15:17] LABS: Hematocrit 29.3 % (37.0-47.0); Hemoglobin 9.2 g/dL (12.0-15.0); Immature Granulocyte Percent A 0.1 % (0-0.5); Lymphocytes Absolute Auto 1.18 K/mm3 (0.9-3.2); Mean Corpuscular HGB Conc 31.4 g/dl (32-36); Mean Corpuscular Hemoglobin 28.9 pg (26-34); Mean Corpuscular Volume 92.1 fl (80-100); Nucleated Red Blood Cells Absolute Auto 0.000 K/mm3 (0.0-0.012); Nucleated Red Blood Cells Perc 0.0 % (0.0-0.2); Platelet Count Result 312 k/mm3 (150-375); Red Blood Count 3.18 M/mm3 (4.2-5.4); White Blood Count 6.8 K/mm3 (4.5-10.0)
[2024-10-10 15:23] LABS: Add Urine Microscopic? YES; Appearance Urine Clear (Clear); Glucose Urine UA Negative (Negative); Leukocyte Esterase Ur Negative LEU/UL (Negative); Nitrate Urine Negative (Negative); Non Pathogenic Casts 0-2; Specific Grav Ur 1.028 (1.001-1.035)
[2024-10-10 15:31] LABS: Alanine Aminotransferase 12 U/L (6-35); Albumin Level 3.6 g/dL (3.5-5.1); Alkaline Phosphatase 63 U/L (38-126); Anion Gap 6 mmol/L (4-12); Aspartate Amino Transferase 24 U/L (14-36); Bilirubin,Total 0.5 mg/dL (0.2-1.3); Blood Urea Nitrogen 19 mg/dL (7-17); CRP 3.0 mg/dL (<1.0); Calcium 9.4 mg/dL (8.4-10.2); Carbon Dioxide 26 mmol/L (22-30); Chloride 109 mmol/L (98-107); Estimated CRCL calculation 36 ml/min; Estimated Glomerular Filt Rate 50; Glucose 77 mg/dL (65-110); Potassium 3.6 mmol/L (3.4-5.0); Sodium 141 mmol/L (137-145); Total Protein 6.7 g/dL (6.3-8.2)
[2024-10-10 15:33] LABS: INR 1.1; Prothrombin Time 14.0 Seconds (11.1-14.7)
[2024-10-10] MEDS: SODIUM CHLORIDE 0.9% IV 1,000 ML 999 ML IV CONT ×2 (15:33→16:15)
[2024-10-10 15:34] LABS: Partial Thromboplastin Time 24.1 Seconds (22.3-36.8)
[2024-10-10] MEDS: SODIUM CHLORIDE 0.9% IV 300 ML 999 ML IV CONT (16:15)
[2024-10-10 16:31] VITALS: BP 129/80; PULSE 92; RESP 12; O2SAT 95
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
--- NOTE | 2024-10-10 17:10 | PC.NURSE ---
ERP requested a bed to wheelchair transfer which has been patients baseline, to ensure she would be able to move per her normal if discharged. patient stated she would only try to transfer to wheelchair after getting a sandwhich and jello.
--- NOTE | 2024-10-10 18:20 | PC.NURSE ---
patient was able to move from stretcher to the wheelchair, stating that it was how she typically moves from bed to wheelchair at home, and that she feels comfortable going home. granddaughter is planning on staying with her for the weekend, and next week will be exploring options about assisted living
--- NOTE | 2024-10-10 18:29 | PCCCNOTE ---
Called to the ED to speak with the pt and her granddaughter regarding possible placement. Pt. refuses to go to any facility and does not want any one at her home. The granddaughter, Sharla, who is also her POA, said that she has Home instead that comes 3x's a week for 3-4 hours each. She can see if they can come more. Sharla lives with her, but said she is unwilling to continue this. She has to find out what to do with her, because she can't take care of her all the time. I did tell her that someone needs to be with her until other arrangements can be made, Sharla agreed to this.
--- NOTE | 2024-10-10 18:43 | PC.NURSE ---
granddaughter went home to gather clothing and a car that the patient can get into. called granddaughter to update her, granddaughter states that she will be here shortly
== END 2024-10-10 19:36 | disposition home or self-care (01) ==
PROVIDERS: Emergency Provider Emergency Medicine
DX: R53.1 Weakness (principal); I10 Essential (primary) hypertension; Z96.659 Presence of unspecified artificial knee joint; Z90.710 Acquired absence of both cervix and uterus; Z77.22 Contact with and (suspected) exposure to environmental tobacco smoke (acute) (chronic); Z79.899 Other long term (current) drug therapy
CPT/HCPCS: 36415; 71045; 80053; 81001; 83605; 85025; 85610; 85730; 86140; 96360; 99283; J7030

== ENCOUNTER 2024-10-12 12:33 | Inpatient (IN) | payer MEDICARE, BC, SELFPAY ==
[2024-10-12] VITALS (16 sets, daily range): BP systolic 107–156; BP diastolic 64–102; PULSE 98–117; RESP 16–25; TEMP 36.8; O2SAT 96–100
--- NOTE | ~2024-10-12 | CT_ITS ---
CT chest abdomen pelvis wo con Ordering provider: Sherif Moore MD History: . Failure to thrive, AMS, Tachycardia . Comparison: None. Technique: CT chest without IV contrast. CT abdomen and pelvis without oral and IV contrast. Radiatio n reduction technique utilized.The dose-length product was 1386.47 mGy-cm. FINDINGS: The study is limited due to lack of IV contrast. CHEST: --VISUALIZED THORACIC INLET: Normal as visualized. --MEDIASTINUM: Aorta/coronary arteries: Mild atheromatous disease. Prominent pulmonary arteries which may indicate p ulmonary hypertension. Heart/other: The heart is slightly enlarged. Lymph nodes: No mediastinal or hilar adenopathy. --LUNGS: No pulmonary nodules or masses. No infiltrates or effusions. No pneumothorax. --MUSCULOSKELETAL: Soft tissues: The superficial soft tissues are normal. Bones: Age appropriate degenerative changes of the spine. Bilateral shoulder osteoarthritic changes. Bony fragment seen adjacent to the right humerus with no definite donor site. Severe kyphosis seen. ABDOMEN/PELVIS: --MUSCULOSKELETAL: Bones: Compression fracture of L1 is seen which may be acute or chronic. Further evaluation with MRI is advised. Age appropriate degenerative changes of the spine. Bilateral sacroiliacs. Bilateral sever e osteoarthritic changes more on the right side. Superficial soft tissues: The superficial soft tissues are normal. --UPPER ABDOMINAL ORGANS: Liver: Normal. Gallbladder: Not visualized most likely surgically removed. Prominent CBD. Spleen: Normal. Stomach/duodenum: Sliding hiatus hernia. Pancreas: Normal. Adrenals: Slightly prominent left adrenal gland. Kidneys: Hyperdense lesion in the left kidney midpole measuring 9 mm which is most likely hemorrhagic cyst. A mass cannot be excluded. Parapelvic cysts are seen in the left kidney versus mild hydronephr otic changes. No ureteric stones seen. --PELVIC ORGANS: The bladder is normal. No bladder stones. --BOWEL AND MESENTERY: Colon: Thickened wall of the rectum which may indicate proctitis. Clinical evaluation advised. No eber dence of diverticulitis.. The appendix is not demonstrated. Small Bowel: Normal. No obstruction. Peritoneum/mesentery: No free air or free fluid. No mesenteric lymphadenopathy. --RETROPERITONEUM: Moderate atheromatous disease of the abdominal aorta. No retroperitoneal lymphad enopathy. IMPRESSION: CHEST: 1. No acute cardiopulmonary pathology. 2. Prominent pulmonary arteries which may indicate pulmonary hypertension. 3. Mild cardiomegaly. ABDOMEN/PELVIS: 1. No evidence of appendicitis, diverticulitis or intestinal obstruction. 2. Small sliding hiatus hernia. 3. Thickened wall of the rectum which may indicate proctitis. 4. Compression fracture of L1. Further evaluation advised. 5. Hyperdense lesion in the left kidney which may be hemorrhagic cyst or a mass. Follow-up advised. 6. Parapelvic cysts versus mild hydronephrotic changes in the left kidney. Reviewed, dictated and finalized at location A. IMPRESSION: CHEST: 1. No acute cardiopulmonary pathology. 2. Prominent pulmonary arteries which may indicate pulmonary hypertension. 3. Mild cardiomegaly. ABDOMEN/PELVIS: 1. No evidence of appendicitis, diverticulitis or intestinal obstruction. 2. Small sliding hiatus hernia. 3. Thickened wall of the rectum which may indicate proctitis. 4. Compression fracture of L1. Further evaluation advised. 5. Hyperdense lesion in the left kidney which may be hemorrhagic cyst or a mas s. Follow-up advised. 6. Parapelvic cysts versus mild hydronephrotic changes in the left kidney.
--- NOTE | ~2024-10-12 | CT_ITS ---
CT brain wo con Ordering provider: Sherif Moore MD History: 79 years Female with . AMS . Comparison: August 13, 2024 Technique: CT of the head without contrast. Radiation reduction technique utilized.The dose-length pr oduct was 1374.82 mGy-cm. FINDINGS: Images are degraded by motion artifact. BRAIN PARENCHYMA AND CSF SPACES: Mild leukoaraiosis and diffuse cortical atrophy. Mild atheromatous d isease. No midline shift, mass effect or hemorrhage. The brain parenchyma and CSF spaces are otherwi se normal. VISUALIZED PARANASAL SINUSES: Well aerated. MASTOIDS: Well aerated. BONES: The bones appear intact. SOFT TISSUES: Visualized nasopharynx is normal. Superficial soft tissues are normal. IMPRESSION: No acute intracranial findings. Reviewed, dictated and finalized at location A.
--- NOTE | 2024-10-12 12:38 | ECG_ITS ---
Test Date: 2024-10-12 12:43:11 Measurements Intervals [place] Rate: 109 P: 16 MD: 143 QRS: 1 QRSD: 85 T: 16 QT: 345 QTc: 465 Interpretive Statements SINUS TACHYCARDIA WITH OCCASIONAL SUPRAVENTRICULAR PREMATURE COMPLEXES ABNORMAL RHYTHM ECG Compared to ECG 08/17/2024 10:50:54 Myocardial infarct finding no longer present Electronically Signed On 10-13-2024 15:47:31 CDT by Ganesh Posey M.D.
[2024-10-12 13:14] LABS: Hematocrit 32.3 % (37.0-47.0); Hemoglobin 10.2 g/dL (12.0-15.0); Immature Granulocyte Percent A 0.3 % (0-0.5); Lymphocytes Absolute Auto 0.70 K/mm3 (0.9-3.2); Mean Corpuscular HGB Conc 31.6 g/dl (32-36); Mean Corpuscular Hemoglobin 28.6 pg (26-34); Mean Corpuscular Volume 90.5 fl (80-100); Nucleated Red Blood Cells Absolute Auto 0.000 K/mm3 (0.0-0.012); Nucleated Red Blood Cells Perc 0.0 % (0.0-0.2); Platelet Count Result 323 k/mm3 (150-375); Red Blood Count 3.57 M/mm3 (4.2-5.4); White Blood Count 9.7 K/mm3 (4.5-10.0)
[2024-10-12 13:32] LABS: Alanine Aminotransferase 19 U/L (6-35); Albumin Level 4.0 g/dL (3.5-5.1); Alkaline Phosphatase 77 U/L (38-126); Anion Gap 14 mmol/L (4-12); Aspartate Amino Transferase 45 U/L (14-36); Bilirubin,Total 0.7 mg/dL (0.2-1.3); Blood Urea Nitrogen 24 mg/dL (7-17); Calcium 9.7 mg/dL (8.4-10.2); Carbon Dioxide 20 mmol/L (22-30); Chloride 108 mmol/L (98-107); Estimated CRCL calculation 36 ml/min; Estimated Glomerular Filt Rate 52; Glucose 78 mg/dL (65-110); Potassium 3.7 mmol/L (3.4-5.0); Sodium 142 mmol/L (137-145); Total Protein 7.5 g/dL (6.3-8.2)
[2024-10-12 13:33] LABS: INR 1.0; Prothrombin Time 13.3 Seconds (11.1-14.7)
[2024-10-12 13:34] LABS: Partial Thromboplastin Time 25.1 Seconds (22.3-36.8)
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
--- OUTSIDE RECORDS SUMMARY | 2024-10-12 13:50 | XMS_ITS | Encounter Summary ---
Author Organization [facility] Facility Care Team Providers Care Irrigation Worker Name Role Phone Shawn Roy MD Primary Care Provider + [phone] Kendra BAILEY MD, Graham Palomino Primary Care Provid er Encounter Details Date Type Department Care Team (Latest Contact Info) Description 07/23/2017 Orders Only MMG CLINCONV ProviderElizabeth MD [address] [place] [address] Social History Tobacco Use Types Packs/Day Years Used Date Smoking Tobacco: Never Assessed Comments Unknown Sex and Gender Information Value Date Recorded Sex Assigned at Not on file 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
--- OUTSIDE RECORDS SUMMARY | 2024-10-12 13:50 | XMS_ITS | Encounter Summary ---
Author Organization [facility] - [facility] Address [address] [place] [address] Care Team Providers Care Family Assessment Worker Name Role Phone Kendra BAILEY MD, Graham Mendez Primary Care Provider Encounter Details Date Type Department Care Team (Late st Contact Info) Description 04/01/2024 [employer] Message Enc [facility] Multispecialty Care - [facility], [address] [id number] [place], [facility] Provider reschedule Social History Tobacco Use Types [...] Total Score: 0 02/28/20 22 12:56 PM LACE WEAVER documented as of this encounter Care Teams Family Assessment Worker Relationship Specialty Start Date End Date Graham Gardner II, MD [address] [place] [address] PCP - General FAMILY PRACTICE 12/10/21 documented as of this encounter
--- OUTSIDE RECORDS SUMMARY | 2024-10-12 13:50 | XMS_ITS | Clinical Summary ---
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 A 1 year screening mammogram is recommended. The patient has been or will be contacted. The patient will be entered into an automated reminder system to schedule a mammogram in one year. Electronically signed by: Dr. Stephen Moscoso nh/:03/30/2014 13:15:05 Sound Controller: Shama MARTINEZ (Mynor)(Ofelia), [facility] letter sent: Normal Exam Reading location: BI-RADS: 1 Negative [EOD] Narrative 03/30/2014 1:16 PM VIDEO SYSTEM REPAIRER - ABDIRAHMAN BILATERAL SCREENING W/CAD BILATERAL DIGITAL SCREENING MAMMOGRAM WITH CAD: 03/30/2014 The study was acquired using full field digital technology and interpreted from soft copy. Current study was also evaluated with ICAD version 7.2. COMPARISONS: Comparison is made to exams dated: 12/09/2012 mammogram and 10/06/2011 mammogram - [facility]. BREAST TISSUE:There are scattered fibroglandular densities [...] dated: 12/09/2012 mammogram and 10/06/2011 mammogram - [facility]. BREAST TISSUE:There are scattered fibroglandular densities [...] signed by: Dr. Stephen Moscoso nh/:03/30/2014 13:15:05 Sound Controller: Shama Fall)(Ofelia), [facility] letter sent: Normal Exam Reading location: BI-RADS: 1 Negative [EOD] Scout Pak MD IMG MAMMO PROCEDURES Fi nal Result from Last 3 Months or Most Recently Relevant to Health Maintenance Insurance MEDICARE [facility] MEDICARE [facility] Care Teams Credit Collector Relationship Specialty Start Date End Date Graham Gardner II, MD PCP - General Family Practice 02/14/22
--- OUTSIDE RECORDS SUMMARY | 2024-10-12 13:50 | XMS_ITS | Encounter Summary ---
Author Organization [facility] Care Team Providers Care Reservation Sales Agent Name Role Phone Shawn Roy MD Primary Care Provider + [phone] Kendra BAILEY MD, Grhaam Palomino Primary Care Provid er Encounter Details Date Type Department Care Team (Latest Contact Info) Description 07/30/2017 Orders Only [facility] CLINCONV ProviderElizabeth MD [address] [place] [id number] Social History Tobacco Use Types Packs/Day Years Used Date Smoking Tobacco: Never Assessed Comments Unknown Sex and Gender Information Value Date Recorded Sex Assigned at Not on file 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
--- OUTSIDE RECORDS SUMMARY | 2024-10-12 13:50 | XMS_ITS | Referral Summary ---
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 A 1 year screening mammogram is recommended. The patient has been or will be contacted. The patient will be entered into an automated reminder system to schedule a mammogram in one year. Electronically signed by: Dr. Stephen Moscoso nh/:03/30/2014 13:15:05 Log Driver: Shama MARTINEZ (R)(M), [facility] letter sent: Normal Exam Reading location: BI-RADS: 1 Negative [EOD] Narrative 03/30/2014 1:16 PM MORGUE TECHNICIAN - ABDIRAHMAN BILATERAL SCREENING W/CAD BILATERAL DIGITAL SCREENING MAMMOGRAM WITH CAD: 03/30/2014 The study was acquired using full field digital technology and interpreted from soft copy. Current study was also evaluated with ICAD version 7.2. COMPARISONS: Comparison is made to exams dated: 12/09/2012 mammogram and 10/06/2011 mammogram - [facility]. BREAST TISSUE:There are scattered fibroglandular densities [...] dated: 12/09/2012 mammogram and 10/06/2011 mammogram - [facility]. BREAST TISSUE:There are scattered fibroglandular densities [...] signed by: Dr. Stephen Moscoso nh/:03/30/2014 13:15:05 Log Driver: Shama De Jesus RT (R)(M), [facility] letter sent: Normal Exam Reading location: BI-RADS: 1 Negative [EOD] Scout Pak MD IMG MAMMO PROCEDURES Fi nal Result from Last 3 Months or Most Recently Relevant to Health Maintenance Insurance MEDICARE [facility] MEDICARE [facility] Care Teams [employer] Relationship Specialty Start Date End Date Graham Gardner II, MD PCP - General Family Practice 02/14/22
--- OUTSIDE RECORDS SUMMARY | 2024-10-12 13:50 | XMS_ITS | Clinical Summary ---
Author Organization [facility] Address [address] [place] [address] Care Team Providers Care Live Out Nanny Name Role Phone Kendra BAILEY MD, Graham [...] 3 10/11/19 24 Active Misc. 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 06/24/19 25 Active NYAMYC 762284 UNIT/GM powder 06/28/19 25 Active Active Problems [...] Type Department Care Team Description 10/08/[address] [address] Graham Gardner II, MD After Hours Page (Pt called after hours line requesting an appt with Dr. Gardner. Made an attempt to schedule appt but pt stated that she will have to call back after 12 when her managed care liaison arrives. ) 10/01/[address] [address] Graham Gardner II, MD FYI 08/28/[address] [address] Graham Gardner II, MD FYI 08/15/2024 Scan HEALTH INFO SRVCS Scanned, [facility] MRI (SCAN) 08/14/2024 Scan MG HEALTH INFO SRVCS Scanned, [facility] 08/13/[address] [address] Graham Gardner II, MD Advice 08/03/2024 Results Follow-Up [address] [address] Graham Gardner II, MD CBC W/DIFF AUTOMATED, COMPREHENSIVE METABOLIC PANEL, LIPID PANEL, TSH W/REFLEX 07/15/2024 1:20 PM CDT Office Visit [address] [address] Graham Gardner II, MD TCM (Patient presents for TCM/hospital follow up for altered mental status and falls) 07/15/2024 Travel 07/14/2024 Orders Only [facility] [place] [address] [place] [address] Graham Gardner II, MD from [...] 83.5 kg (184 lb) 05/01/2024 2:55 PM 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 MGR Height 165.1 cm (5' 5) 09/27/2023 1:26 [...] 03/09/2023, 01/05/2021, 06/13/2020, Additional history exists PHQ-2 ([facility]) 04/02/2024 09/27/2023 Hepatitis C Completed 01/26/2022 Meningococcal [...] TSH W/REFLEX (08/01/2024 12:47 PM CDT) Pathologist [facility] TSH 4.82(H) 0.40 - 4.50 mIU/L [facility] FREE T4 1.2 0.8 - 1.8 ng/dL [facility] 08/01/2024 12:4 7 PM CDT 08/01/2024 12:47 PM CDT Narrative Resulting Agency Comment Performing Organization Information: Site ID: [place] Name: [facility] Address: [address] [place] [address] Director: Lety Weiss MD Graham Gardner II, MD LABORATORY Final R esult [facility] [id number] [place] [address], * (ABNORMAL) COMPREHENSIVE METABOLIC PANEL (08/01/2024 12:47 PM CDT) [facility] GLUCOSE 84 65 - 99 mg/dL [facility] Comment: Fasting reference interval BUN 25 7 - 25 mg/dL [facility] CREATININE S/P/B 1.04(H) 0.60 - 1.00 mg/dL [facility] GFR ESTIMATE 55(L) > OR = 60 mL/min/1. 73m2 [facility] BUN CREATININE RATIO 24(H) 6 - 22 (calc) [facility] SODIUM S/P/B 145 135 - 146 mmol/L [facility] POTASSIUM S/P/B 3.7 3.5 - 5.3 mmol/L [facility] CHLORIDE S/P/B 111(H) 98 - 110 mmol/L [facility] CO2 26 20 - 32 mmol/L [facility] CALCIUM S/P/B 9.7 8.6 - 10.4 mg/dL [facility] TOTAL PROTEIN S/P/B 6.4 6.1 - 8.1 g/dL [facility] ALBUMIN S/P/B 3.7 3.6 - 5.1 g/dL [facility] GLOBULIN 2.7 1.9 - 3.7 g/dL (calc) [facility] ALBUMIN/GLOBULIN RATIO 1.4 1.0 - 2.5 (calc) [facility] BILIRUBIN TOTAL S/P/B 0.3 0.2 - 1.2 mg/dL [facility] ALKALINE PHOSPHATASE S/P/B 62 37 - 153 U/L [facility] AST 16 10 - 35 U/L [facility] ALT 11 6 - 29 U/L [facility] 08/01/2024 12:4 7 PM CDT 08/01/2024 12:47 PM CDT Narrative Resulting Agency Comment Performing Organization Information: Site ID: [place] Name: [facility] Address: [address] [place] [address] Director: Lety Weiss MD Graham Gardner II, MD LABORATORY Final R esult [address] [address], * LIPID PANEL (08/01/2024 12:47 PM CDT) CHOLESTEROL 151 <200 mg/dL [facility] HDL 51 > OR = 50 mg/dL [facility] TRIGLYCERIDES 97 <150 mg/dL [facility] LDL (CALCULATED) 81 mg/dL (calc) [facility] Comment: Reference range: <100 Desirable range <100 mg/dL for primary prevention; <70 mg/dL for patients with CHD or diabetic patients with > or = 2 CHD risk factors. LDL-C is now calculated using the Hazel calculation, which is a validated novel method providing better accuracy than the Friedewald equation in the estimation of LDL-C. Venkata GARCIA et al. LISA. 2013;310(19): 6191-7826 (http://education.[employer]/faq/MWQ155) CHOL/HDL RATIO 3.0 <5.0 (calc) [facility] NON HDL CHOLESTEROL 100 <130 mg/dL (calc) [facility] Comment: For patients with diabetes plus 1 major ASCVD risk factor, treating to a non-HDL-C goal of <100 mg/dL (LDL-C of <70 mg/dL) is considered a therapeutic option. 08/01/2024 12:4 7 PM CDT 08/01/2024 12:47 PM CDT Narrative Resulting Agency Comment Performing Organization Information: Site ID: [place] Name: [facility] Address: [address] [place] [address] Director: Lety Weiss MD Graham Gardner II, MD LABORATORY Final R esult [facility] [address] [place] [address], * (ABNORMAL) CBC W/DIFF AUTOMATED (08/01/2024 12:47 PM CDT) WBC 7.6 3.8 - 10.8 Thousand/ uL [facility] RBC 3.14(L) 3.80 - 5.10 Million/u L [facility] HGB 9.4(L) 11.7 - 15.5 g/dL [facility] HCT 30.2(L) 35.0 - 45.0 % [facility] MCV 96.2 80.0 - 100.0 fL [facility] MCH 29.9 27.0 - 33.0 pg [facility] MCHC 31.1(L) 32.0 - 36.0 g/dL [facility] Comment: For adults, a slight decrease in the calculated MCHC value (in the range of 30 to 32 g/dL) is most likely not clinically significant; however, it should be interpreted with caution in correlation with other red cell parameters and the patient's clinical condition. RDW 15.2(H) 11.0 - 15.0 % [facility] PLT 346 140 - 400 Thousand/ uL [facility] MPV 10.3 7.5 - 12.5 fL [...] Performing Organization Information: Site ID: [place] Name: [facility] Address: [address] [place] [address] Director: Lety Weiss MD Graham Gardner II, MD LABORATORY Final R esult [facility] [id number] [place] [address], [place] [address] BB * HEPATITIS C ANTIBODY W/RFX TO HCV [...] a test for HCV RNA (test code 32219) is suggested. For additional information please refer to http://education.[employer]/faq/OLJ25f8 (This link is being provided for informational/ educational purposes only.) 01/26/2022 7:16 AM CDT 01/26/2022 7:17 AM CDT Narrative [facility] - 01/27/2022 9:15 AM CDT FASTING:YES FASTING: YES us Shawn Roy MD LABORATORY Final Resul t [facility] [address] [place] [phone] from Last 3 Months or Most Recently Relevant to Health Maintenance Insurance MEDICARE [facility] Advance Directives Documents on File Type Date Recorded Patient Allopathic Doctor Expl anation Advance Directives and Living Will 08/04/2024 6:54 AM HOME CARE DNR/DNI/CO DE STATUS/CONSENT/AUTH Care Teams Live Out Nanny Relationship Specialty Start Date End Date Graham Gardner II, MD [address] [place] [address] PCP - General FAMILY PRACTICE 12/10/21
[2024-10-12 14:16] LABS: Creatine Kinase 775 U/L (30-135); Magnesium 1.4 mg/dL (1.6-2.3)
[2024-10-12 14:29] LABS: Troponin I 0.016 ng/mL (0.000-0.034)
[2024-10-12 14:48] LABS: Thyroid Stimulating Hormone Reflex 1.880 uIU/mL (0.465-4.68)
[2024-10-12] MEDS: SODIUM CHLORIDE 0.9% IV 2,000 ML 999 ML IV CONT (14:51)
[2024-10-12 14:59] LABS: Add Urine Microscopic? YES; Appearance Urine Clear (Clear); Glucose Urine UA Negative (Negative); Leukocyte Esterase Ur Negative LEU/UL (Negative); Nitrate Urine Negative (Negative); Specific Grav Ur 1.022 (1.001-1.035)
[2024-10-12 15:13] LABS: Cannabinoid Screen Urine Negative (Negative)
--- NOTE | 2024-10-12 15:17 | ED_ITS ---
HPI - General Adult General Chief complaint: Altered Mental Status Stated complaint: fall - confusion Time Seen by Provider: 10/12/24 13:33 History of Present Illness HPI narrative: This is a 79-year-old female presenting ED with chief complaint of failure to thrive. Patient was seen in our ED several days ago with concerns about her decreasing functional status. That time she refused all treatment and admission and was discharged back home. However since then she has continued to be confused. She is no longer able to ambulate. her granddaughter who lives with her and is really her primary cable inspector had to leave the house last night as patient had become verbally abusive. When the granddaughter returned she found the patient is sitting on the floor of the bathroom with wheelchair on top of her. She was covered in feces and urine. There is nothing on the patient. She is now too weak to sit up on her own. Patient herself is arousable but denies any real complaints. Related Data Home Medications ?Medication ?Instructions ?Recorded ?Confirmed ?Last Taken ?Type lisinopril 10 mg tablet 10 mg PO DAILY 05/15/24 08/13/24 08/13/24 History lorazepam 0.5 mg tablet 0.5 mg PO PRN PRN anxiety 05/15/24 08/13/24 Unknown History multivitamin (Daily Multi-Vitamin 1 tablet PO DAILY 05/15/24 08/13/24 08/13/24 History tablet) rosuvastatin 10 mg tablet 10 mg PO DAILY 05/15/24 08/13/24 08/13/24 History trazodone 50 mg tablet 25 mg PO HS 08/13/24 08/13/24 08/13/24 History Allergies Allergy/AdvReac Type Severity Reaction Status Date / Time No Known Allergies Allergy Verified 10/10/24 11:33 [facility] Past Medical History Medical History (Updated 10/12/24 @ 17:14 by Sherif Moore MD) Hypertension Surgical History Surgical History (Updated 10/10/24 @ 17:14 by Mike Jonas MD) History of knee replacement History of hysterectomy Family History Family History (Updated 05/15/24 @ 06:57 by Bell Brizuela) Daughter Diabetes mellitus Social History Social History Smoking status: Never smoker Second hand tobacco smoke exposure: Yes Alcohol intake: never Substance use: never Do You Feel Safe in your Home?: Yes Lack of Transportation: No Lack of Food: Never True Current Housing: I Have Housing Concerned About Future Housing: No Difficulty Paying Gas/Electric Bills: No Difficulty Paying for Meds: No Currently Unemployed: No Education: Bachelor's Degree Difficulty w/ Childcare or Family Care: No Spiritual care concerns: No Exam 2 Narrative: APPEARANCE: Patient is somnolent but arousable Head: atraumatic. EYES: EOMI, NOSE: Atraumatic NECK: Trachea midline RESPIRATORY: No increased rate of breathing, clear to auscultation CARDIOVASCULAR: Tachycardic no peripheral edema ABDOMINAL: Non-distended soft nontender MUSCULOSKELETAl: No extremity injury NEURO: Alert. M moving for 4 extremities to command SKIN:: Warm, dry. Normal color PSYCHIATRIC: Normal affect Course Vital Signs Vital signs: Vital Signs Temperature 98.2 F 10/12/24 12:29 Pulse Rate 112 H 10/12/24 12:29 Respiratory Rate 16 10/12/24 12:29 Blood Pressure 136/92 H 10/12/24 12:29 Pulse Oximetry 100 10/12/24 12:29 Temperature 98.2 F 10/12/24 12:29 Pulse Rate 117 H 10/12/24 13:16 Respiratory Rate 16 10/12/24 12:29 Blood Pressure 136/92 H 10/12/24 12:29 Pulse Oximetry 100 10/12/24 12:29 Medical Decision Making MDM Narrative Medical decision making narrative: -Course: 79-year-old female presenting after being found down in her house covered in urine and feces. She has had multiple trips to the ED for failure to thrive and has had a progressive decline over over the last year and worse the last couple weeks. She is now continuing to have behavioral disturbances including hallucinations does not appear to be able to care for herself at this time. Metabolic and infectious workup obtained. No causative findings on laboratory studies. CT chest abdomen pelvis did not reveal any significant infections and may have shown mild proctitis. CT of the brain was unremarkable. Viral swabs negative. Urine not indicative infection. While the patient was exposed to a [employer] blind cleaner her symptoms have been ongoing for much longer than just today and that is unlikely to be causative of her condition. Presentation most consistent with advancing dementia. Patient is not safe for discharge home. Care coordination was consulted. Patient is DNR DNI. Consider hospice vs placement. Vital Signs Vital Signs: Vital Signs Temperature 98.2 F 10/12/24 12:29 Pulse Rate 112 H 10/12/24 12:29 Respiratory Rate 16 10/12/24 12:29 Blood Pressure 136/92 H 10/12/24 12:29 Pulse Oximetry 100 10/12/24 12:29 Temperature 98.2 F 10/12/24 12:29 Pulse Rate 117 H 10/12/24 13:16 Respiratory Rate 16 10/12/24 12:29 Blood Pressure 136/92 H 10/12/24 12:29 Pulse Oximetry 100 10/12/24 12:29 Lab Data 10/12/24 13:07 10/12/24 13:07 Labs: Lab Results 10/12/24 10/12/24 10/12/24 Range/Units 13:06 13:07 14:38 WBC 9.7 (4.5-10.0) K/mm3 RBC 3.57 L (4.2-5.4) M/mm3 Hgb 10.2 L (12.0-15.0) g/dL Hct 32.3 L (37.0-47.0) % MCV 90.5 (80-100) fl MCH 28.6 (26-34) pg MCHC 31.6 L (32-36) g/dl RDW 13.6 (11.5-14.5) % Plt Count 323 (150-375) k/mm3 MPV 9.6 (7.4-10.4) fl Immature Gran % (Auto) 0.3 (0-0.5) % Neut % (Auto) 85.1 H (45.5-73.1) % Lymph % (Auto) 7.2 L (18.3-44.2) % [place] % (Auto) 6.9 (2.6-8.5) % Eos % (Auto) 0.2 (0-4.4) % Baso % (Auto) 0.3 (0.2-1.2) % Lymph # (Auto) 0.70 L (0.9-3.2) K/mm3 [place] # (Auto) 0.7 H (0.1-0.6) K/mm3 Eos # (Auto) 0.0 (0-0.3) K/mm3 Baso # (Auto) 0.0 (0.0-0.1) K/mm3 Abs Immat Gran (auto) 0.03 (0.00-0.031) K/mm3 Absolute Neuts (auto) 8.2 H (1.3-6.7) K/mm3 Absolute Nucleated RBC 0.000 (0.0-0.012) K/mm3 Nucleated RBC % 0.0 (0.0-0.2) % PT 13.3 (11.1-14.7) Seconds INR 1.0 APTT 25.1 (22.3-36.8) Seconds Sodium 142 (137-145) mmol/L Potassium 3.7 (3.4-5.0) mmol/L Chloride 108 H (98-107) mmol/L Carbon Dioxide 20 L (22-30) mmol/L Anion Gap 14 H (4-12) mmol/L BUN 24 H (7-17) mg/dL Creatinine 1.03 H (0.7-1.0) mg/dL Estim Creat Clear Calc 36 ml/min Estimated GFR 52 L (59 - ) Glucose 78 (65-110) mg/dL Lactic Acid 1.4 (0.7-2.0) mmol/L Calcium 9.7 (8.4-10.2) mg/dL Phosphorus 3.9 (2.5-4.5) mg/dL Magnesium 1.4 L (1.6-2.3) mg/dL Total Bilirubin 0.7 (0.2-1.3) mg/dL AST 45 H (14-36) U/L ALT 19 (6-35) U/L Alkaline Phosphatase 77 (38-126) U/L Total Creatine Kinase 775 H (30-135) U/L Troponin I 0.016 (0.000-0.034) ng/mL Total Protein 7.5 (6.3-8.2) g/dL Albumin 4.0 (3.5-5.1) g/dL TSH (Reflex) 1.880 (0.465-4.68) uIU/mL Urine Color (Yellow) Urine Appearance (Clear) Urine pH (5.0-9.0) Ur Specific [place] (1.001-1.035) Urine Protein (Negative) mg/dL Urine Glucose (UA) (Negative) mg/dL Urine Ketones (Negative) mg/dL Ur Blood (Man) (Negative) Urine Nitrate (Negative) Urine Bilirubin (Negative) Urine Urobilinogen (<2.0) mg/dL Leukocyte Esterase Rfl (Negative) CORKY/UL Urine RBC (0-2) /hpf Urine WBC (0-3) /hpf Ur Squamous Epith Cells (Few) /hpf Urine Bacteria /hpf Urine Casts Urine Opiates Screen (Negative) Urine Methadone Screen (Negative) Ur Barbiturates Screen (Negative) Ur Phencyclidine Scrn (Negative) Ur Amphetamine Screen (Negative) U Benzodiazepines Scrn (Negative) Urine Cocaine Screen (Negative) U Cannabinoids Screen (Negative) Ethyl Alcohol < 10 (<10) mg/dL Influenza A (RT-PCR) Negative (Negative) Influenza B (RT-PCR) Negative (Negative) RSV (RT-PCR) Negative (Negative) SARS-CoV-2 RNA (RT-PCR) Negative (Negative) 10/12/24 Range/Units 14:48 WBC (4.5-10.0) K/mm3 RBC (4.2-5.4) M/mm3 Hgb (12.0-15.0) g/dL Hct (37.0-47.0) % MCV (80-100) fl MCH (26-34) pg MCHC (32-36) g/dl RDW (11.5-14.5) % Plt Count (150-375) k/mm3 MPV (7.4-10.4) fl Immature Gran % (Auto) (0-0.5) % Neut % (Auto) (45.5-73.1) % Lymph % (Auto) (18.3-44.2) % [place] % (Auto) (2.6-8.5) % Eos % (Auto) (0-4.4) % Baso % (Auto) (0.2-1.2) % Lymph # (Auto) (0.9-3.2) K/mm3 [place] # (Auto) (0.1-0.6) K/mm3 Eos # (Auto) (0-0.3) K/mm3 Baso # (Auto) (0.0-0.1) K/mm3 Abs Immat Gran (auto) (0.00-0.031) K/mm3 Absolute Neuts (auto) (1.3-6.7) K/mm3 Absolute Nucleated RBC (0.0-0.012) K/mm3 Nucleated RBC % (0.0-0.2) % PT (11.1-14.7) Seconds INR APTT (22.3-36.8) Seconds Sodium (137-145) mmol/L Potassium (3.4-5.0) mmol/L Chloride (98-107) mmol/L Carbon Dioxide (22-30) mmol/L Anion Gap (4-12) mmol/L BUN (7-17) mg/dL Creatinine (0.7-1.0) mg/dL Estim Creat Clear Calc ml/min Estimated GFR (59 - ) Glucose (65-110) mg/dL Lactic Acid (0.7-2.0) mmol/L Calcium (8.4-10.2) mg/dL Phosphorus (2.5-4.5) mg/dL Magnesium (1.6-2.3) mg/dL Total Bilirubin (0.2-1.3) mg/dL AST (14-36) U/L ALT (6-35) U/L Alkaline Phosphatase (38-126) U/L Total Creatine Kinase (30-135) U/L Troponin I (0.000-0.034) ng/mL Total Protein (6.3-8.2) g/dL Albumin (3.5-5.1) g/dL TSH (Reflex) (0.465-4.68) uIU/mL Urine Color Yellow (Yellow) Urine Appearance Clear (Clear) Urine pH 5.0 (5.0-9.0) Ur Specific [place] 1.022 (1.001-1.035) Urine Protein 2+ H (Negative) mg/dL Urine Glucose (UA) Negative (Negative) mg/dL Urine Ketones 3+ H (Negative) mg/dL Ur Blood (Man) 2+ H (Negative) Urine Nitrate Negative (Negative) Urine Bilirubin Negative (Negative) Urine Urobilinogen 1.0 (<2.0) mg/dL Leukocyte Esterase Rfl Negative (Negative) CORKY/UL Urine RBC 3-5 H (0-2) /hpf Urine WBC 0-5 (0-3) /hpf Ur Squamous Epith Cells Occasional (Few) /hpf Urine Bacteria None seen /hpf Urine Casts 3-5 Urine Opiates Screen Negative (Negative) Urine Methadone Screen Negative (Negative) Ur Barbiturates Screen Negative (Negative) Ur Phencyclidine Scrn Negative (Negative) Ur Amphetamine Screen Negative (Negative) U Benzodiazepines Scrn Negative (Negative) Urine Cocaine Screen Negative (Negative) U Cannabinoids Screen Negative (Negative) Ethyl Alcohol (<10) mg/dL Influenza A (RT-PCR) (Negative) Influenza B (RT-PCR) (Negative) RSV (RT-PCR) (Negative) SARS-CoV-2 RNA (RT-PCR) (Negative) Discharge Plan Discharge Clinical Impression: Adult failure to thrive, Dementia Patient Disposition: Still a Patient Condition: Stable Patient Language: Yoruba Prescriptions: No Action lisinopril 10 mg tablet 10 mg PO DAILY rosuvastatin 10 mg tablet 10 mg PO DAILY multivitamin [Daily Multi-Vitamin] Tablet 1 tablet PO DAILY lorazepam 0.5 mg tablet 0.5 mg PO PRN PRN (Reason: anxiety) trazodone 50 mg tablet 25 mg PO HS carvedilol 6.25 mg tablet 12.5 mg PO Q12H Qty: 60 0RF Follow-up/Referrals: Kendra,Graham CADET [Other]
[2024-10-12 15:20] LABS: Influenza A QL RT-PCR Negative (Negative); Influenza B QL RT-PCR Negative (Negative); RSV RNA, RT-PCR Negative (Negative); SARS-CoV-2 RNA PCR Negative (Negative)
--- NOTE | 2024-10-12 17:04 | ECG_ITS ---
Test Date: 2024-10-12 17:13:43 Measurements Intervals [place] Rate: 109 P: 0 NH: 0 QRS: 12 QRSD: 89 T: 18 QT: 341 QTc: 461 Interpretive Statements SINUS TACHYCARDIA ABNORMAL RHYTHM ECG Compared to ECG 10/12/2024 12:43:11 NO SIGNIFICANT CHANGES Electronically Signed On 10-13-2024 15:52:33 CDT by Ganesh Posey M.D.
[2024-10-12 17:47] LABS: Troponin I 0.018 ng/mL (0.000-0.034)
--- NOTE | 2024-10-12 17:49 | P.HP_ITS ---
H&P: HPI History of Present Illness Date/Time: 10/12/24 17:49 Chief Complaint: altered mental status Narrative: patient unable to give any HPI during interview, HPI gathered from chart information, Nursing. Per chart review, patient is a 79-year-old female with PMHx: Of but not limited to HTN, who presented to the ED with chief complaint of failure to thrive by family member, patient was originally seen in the ED several days ago prior to today with concerns about decreasing functional status. Time it is documented that patient refused all treatment upon admission and was discharged charge back home. However since then she has continued to become increasingly more confused. She is no longer able to ambulate per her go granddaughter who lives with her and essentially was her primary animal care assistant but it was recorded that primary caregiver had to leave the house last night as patient had become increasingly verbally abusive. Per chart review few when the grand daughter returned home she found the patient sitting on the floor the bathroom with a wheelchair on top of her. Is also noted that patient was covered in feces and urine. ED Work-up reveals: Initial vital signs b/p: 136/86, SpO2 96% on RA, RR: 16, p: rate 98, CTA reveals no acute cardiopulmonary pathology, prominent pulmonary arteries which may indicate pulmonary HTN, mild cardiomegaly, compression fra ction of the L1 further evaluation advised hyperdense lesion in the left kidney which may be hemorrhagic cyst or mass follow-up advised. Head CT reveals no acute intracranial findings. Chest x-ray reveals no focal consolidation, mild. perihilar bronchial wall thickening. Finding suggestive of respiratory bronchiolitis PMFSH Past Medical History Medical History Hypertension Surgical History Surgical History History of knee replacement History of hysterectomy Family History Family History Daughter Diabetes mellitus Social History Social History Smoking status: Never smoker Second hand tobacco smoke exposure: Yes Alcohol intake: never Substance use: never Do You Feel Safe in your Home?: Yes Lack of Transportation: No Lack of Food: Never True Current Housing: I Have Housing Concerned About Future Housing: No Difficulty Paying Gas/Electric Bills: No Difficulty Paying for Meds: No Currently Unemployed: No Education: Bachelor's Degree Difficulty w/ Childcare or Family Care: No Spiritual care concerns: No Meds Home Medications and Allergies Home Medications ?Medication ?Instructions ?Recorded ?Confirmed ?Type lisinopril 10 mg tablet 10 mg PO DAILY 05/15/24 08/13/24 History lorazepam 0.5 mg tablet 0.5 mg PO PRN PRN anxiety 05/15/24 08/13/24 History multivitamin (Daily Multi-Vitamin 1 tablet PO DAILY 05/15/24 08/13/24 History tablet) rosuvastatin 10 mg tablet 10 mg PO DAILY 05/15/24 08/13/24 History trazodone 50 mg tablet 25 mg PO HS 08/13/24 08/13/24 History carvedilol 6.25 mg tablet 12.5 mg (2 x 6.25 mg) PO Q12H #60 08/19/24 08/13/24 Rx tabs Allergies Allergy/AdvReac Type Severity Reaction Status Date / Time No Known Allergies Allergy Verified 10/10/24 11:33 Vital Signs Vital Signs - 24 hr 10/12/24 12:29 10/12/24 12:38 10/12/24 12:40 Temperature 98.2 F Pulse Rate 112 H 114 H 113 H Respiratory Rate 16 19 18 Blood Pressure 136/92 H 154/102 H Pulse Oximetry 100 99 98 10/12/24 12:45 10/12/24 12:46 10/12/24 13:00 Temperature Pulse Rate 116 H 114 H 108 H Respiratory Rate 25 H 22 H 22 H Blood Pressure 156/67 H Pulse Oximetry 99 100 10/12/24 13:16 10/12/24 13:26 10/12/24 13:30 Temperature Pulse Rate 117 H 104 H Respiratory Rate 22 H Blood Pressure Pulse Oximetry 100 99 10/12/24 13:45 10/12/24 14:35 10/12/24 15:29 Temperature Pulse Rate Respiratory Rate Blood Pressure Pulse Oximetry 100 96 96 10/12/24 15:30 Temperature Pulse Rate 98 Respiratory Rate 16 Blood Pressure 136/86 Pulse Oximetry 96 Exam Narrative: APPEARANCE: Patient is somnolent but arousable, unable to answer any questions Head: atraumatic. EYES: EOMI, NOSE: Atraumatic NECK: Trachea midline RESPIRATORY: No increased rate of breathing, clear to auscultation CARDIOVASCULAR: Tachycardic no peripheral edema ABDOMINAL: Non-distended soft nontender MUSCULOSKELETAl: No extremity injury NEURO: Alert. M moving for 4 extremities to command SKIN:: Warm, dry. Normal color PSYCHIATRIC: Normal affect H&P: Results Labs Labs: Short CBC 10/12/24 Range/Units 13:07 WBC 9.7 (4.5-10.0) K/mm3 Hgb 10.2 L (12.0-15.0) g/dL Hct 32.3 L (37.0-47.0) % Plt Count 323 (150-375) k/mm3 BMP 10/12/24 13:07 Sodium 142 Potassium 3.7 Chloride 108 H Carbon Dioxide 20 L BUN 24 H Creatinine 1.03 H Glucose 78 Calcium 9.7 Cardiac Enzymes 10/12/24 10/12/24 Range/Units 13:06 17:10 Total Creatine Kinase 775 H (30-135) U/L Troponin I 0.016 0.018 (0.000-0.034) ng/mL Liver Function 10/12/24 Range/Units 13:07 Total Bilirubin 0.7 (0.2-1.3) mg/dL AST 45 H (14-36) U/L ALT 19 (6-35) U/L Alkaline Phosphatase 77 (38-126) U/L Albumin 4.0 (3.5-5.1) g/dL Urine 10/12/24 Range/Units 14:48 Urine Color Yellow (Yellow) Urine Appearance Clear (Clear) Urine pH 5.0 (5.0-9.0) Ur Specific [place] 1.022 (1.001-1.035) Urine Protein 2+ H (Negative) mg/dL Urine Glucose (UA) Negative (Negative) mg/dL Pulse Oximetry SpO2 results: 96% on RA Attestation: I personally reviewed and interpreted this pulse oximetry as follows: ECG Interpretation: Rate 109 NV 0 QRSd 89 QT 341 QTc 461 --[place]-- P 0 QRS 12 T 18 ATRIAL FIBRILLATION WITH RAPID VENTRICULAR RESPONSE ABNORMAL RHYTHM ECG Compared to ECG 10/12/2024 12:43:11 Sinus tachycardia no longer present Imaging CT scan - abdomen: Radiologist's impression: CHEST: 1. No acute cardiopulmonary pathology. 2. Prominent pulmonary arteries which may indicate pulmonary hypertension. 3. Mild cardiomegaly. ABDOMEN/PELVIS: 1. No evidence of appendicitis, diverticulitis or intestinal obstruction. 2. Small sliding hiatus hernia. 3. Thickened wall of the rectum which may indicate proctitis. 4. Compression fracture of L1. Further evaluation advised. 5. Hyperdense lesion in the left kidney which may be hemorrhagic cyst or a mass. Follow-up advised. 6. Parapelvic cysts versus mild hydronephrotic changes in the left kidney. Assessment and Plan Assessment and plan (1) Adult failure to thrive: Code(s): R62.7 - Adult failure to thrive Status: Acute Assessment and Plan: - patient unable to care for herself -evidence of caregiver strain -Consult care coordination for possible placement to LTC (2) Confusion: Code(s): R41.0 - Disorientation, unspecified Status: Acute Assessment and Plan: -needs LTC placement (3) Altered mental status: Code(s): R41.82 - Altered mental status, unspecified Status: Acute Assessment and Plan: -continue to monitor CBC/CMP -UDS is negative (4) Falls frequently: Code(s): R29.6 - Repeated falls Status: Acute Assessment and Plan: -patient recently found on the floor at home residents - unknown down time (5) Elevated CK: Code(s): R74.8 - Abnormal levels of other serum enzymes Status: Acute Plan Continue home medications: VTE Prophylaxis: SCDs DIET: regular diet Anticipated hospital stay: > 2 days Code Status: DNR Hospitalist [facility] Advance Care Plan I have confirmed that the patient's Advanced Care Plan is present, code status is documented, or surrogate decision maker is listed in patient medical record.: Yes Medication Reconciliation I have utilized all available resources to obtain, update and review the patients current medications (includes all prescriptions, OTC, herbals, cannabis, and nutritional supplements).: Yes
[2024-10-12] MEDS: DEXTROSE 50% 25 GM/50 ML SYRINGE IV PUSH (22:12)
--- NOTE | 2024-10-12 23:01 | ADMGEN ---
This patient, Jennifer Mota, was admitted to [facility] Surg Room 307-02. Patient/family oriented to hospital policies and general routines including ID bracelet, bed and alarms, visiting hours, pain management, procedures, bathroom and other care routines, personal items, smoking policy, room service/diet, and visiting hours. Information on how to activate the Rapid Response Team has been discussed. Patient/Family are encouraged to report perceived risks to care and to ask questions if they do not understand what they are told or what they should do.
[2024-10-13] VITALS (8 sets, daily range): BP systolic 134–160; BP diastolic 47–79; PULSE 80–117; RESP 17–22; TEMP 36–37.1; O2SAT 92–97
--- NOTE | 2024-10-13 00:37 | PC.NURSE ---
pt's glucose was 62 mg/dl, provider was notified, pt got Dextrose as ordered and charted. According to granddaughter, pt ate last time yesterday morning. Admission was filled by the granddaughter over the phone. Please, if further information needed, call her tomorrow 1 pm to 2 pm.
[2024-10-13] MEDS: DEXTROSE 5% 1,000 ML 1,000 ML 100 ML IVPB (01:18)
[2024-10-13 08:08] LABS: Hematocrit 26.1 % (37.0-47.0); Hemoglobin 8.2 g/dL (12.0-15.0); Immature Granulocyte Percent A 0.3 % (0-0.5); Lymphocytes Absolute Auto 0.94 K/mm3 (0.9-3.2); Mean Corpuscular HGB Conc 31.4 g/dl (32-36); Mean Corpuscular Hemoglobin 28.7 pg (26-34); Mean Corpuscular Volume 91.3 fl (80-100); Nucleated Red Blood Cells Absolute Auto 0.000 K/mm3 (0.0-0.012); Nucleated Red Blood Cells Perc 0.0 % (0.0-0.2); Platelet Count Result 245 k/mm3 (150-375); Red Blood Count 2.86 M/mm3 (4.2-5.4); White Blood Count 6.3 K/mm3 (4.5-10.0)
[2024-10-13 08:42] LABS: Alanine Aminotransferase 16 U/L (6-35); Albumin Level 2.9 g/dL (3.5-5.1); Alkaline Phosphatase 59 U/L (38-126); Anion Gap 7 mmol/L (4-12); Aspartate Amino Transferase 38 U/L (14-36); Bilirubin,Total 0.5 mg/dL (0.2-1.3); Blood Urea Nitrogen 18 mg/dL (7-17); Calcium 8.9 mg/dL (8.4-10.2); Carbon Dioxide 21 mmol/L (22-30); Chloride 110 mmol/L (98-107); Creatine Kinase 557 U/L (30-135); Estimated CRCL calculation 39 ml/min; Estimated Glomerular Filt Rate 55; Glucose 85 mg/dL (65-110); Potassium 3.3 mmol/L (3.4-5.0); Sodium 138 mmol/L (137-145); Total Protein 5.8 g/dL (6.3-8.2)
[2024-10-13] MEDS: DEXTROSE 5% 1,000 ML 1,000 ML 100 ML IV CONT ×2 (12:09→20:13)
--- NOTE | 2024-10-13 13:30 | P.PNIM_ITS ---
Progress Note: A&P Assessment and Plan (1) Adult failure to thrive: Code(s): R62.7 - Adult failure to thrive Status: Acute Assessment and Plan: -patient unable to care for herself -evidence of caregiver strain -Consult care coordination for possible placement to LTC vs. Hospice -Patient family not wanting to do hospice yet. (2) Confusion: Code(s): R41.0 - Disorientation, unspecified Status: Acute Assessment and Plan: -needs LTC placement (3) Suicidal ideations: Code(s): R45.851 - Suicidal ideations Status: Acute Assessment and Plan: -Patients daughter states that she has been talking about harming herself and wanting to while at home -Patient unable to answer questions at the time of evaluation. -If she becomes actively suicidal then will need a psych evaluation. (4) Altered mental status: Code(s): R41.82 - Altered mental status, unspecified Status: Acute Assessment and Plan: -Monitor vitals and las. -CBC, CMP, urine, and scans negative. -UDS is negative (5) Falls frequently: Code(s): R29.6 - Repeated falls Status: Acute Assessment and Plan: -patient recently found on the floor at home residents -unknown down time (6) Elevated CK: Code(s): R74.8 - Abnormal levels of other serum enzymes Status: Acute Assessment and Plan: -CK 775 -> 557 -Continue IV fluids Plan Continue home medications: VTE Prophylaxis: SCDs DIET: regular diet Anticipated hospital stay: > 2 days Code Status: DNR Subjective Date/time seen: 10/13/24 13:30 Interval history: Patient is asleep during my time in the room with her. I discussed her care with the nurse. According to review of the chart patient will need placement in a long-term care facility versus hospice. Discussed this case with care coordination as well. Patient's daughter can only be contacted between 1 and 2:00 p.m. waiting for further instruction from care coordination for possible placement. Patient not able to undergo a PT or OT evaluation at this time. Exam Narrative: GENERAL: Comfortable, no acute distress RESPIRATORY: clear to auscultation, no increased respiratory effort CARDIO: Regular rate and rhythm SKIN/EXTREMITIES: no rashes, no edema, no redness or tenderness NEURO: A&O x0 Objective Data Vital Signs Vital Signs: Vital Signs - 24 hr 10/12/24 13:45 10/12/24 14:35 10/12/24 15:29 Temperature Pulse Rate Respiratory Rate Blood Pressure Pulse Oximetry 100 96 96 Oxygen Delivery 10/12/24 15:30 10/12/24 19:28 10/12/24 19:32 Temperature Pulse Rate 98 103 H 103 H Respiratory Rate 16 18 18 Blood Pressure 136/86 140/88 140/88 Pulse Oximetry 96 99 99 Oxygen Delivery 10/12/24 19:42 10/12/24 21:10 10/13/24 00:35 Temperature 98.2 F 98.3 F Pulse Rate 108 H 104 H Respiratory Rate 18 17 Blood Pressure 107/64 160/79 H Pulse Oximetry 96 95 Oxygen Delivery Room Air 10/13/24 05:00 10/13/24 08:00 10/13/24 08:00 Temperature 98.7 F 98.0 F Pulse Rate 108 H 117 H Respiratory Rate 18 22 H Blood Pressure 134/47 L 149/61 H Pulse Oximetry 95 95 96 Oxygen Delivery Room Air 10/13/24 10:17 Temperature Pulse Rate 80 Respiratory Rate Blood Pressure Pulse Oximetry Oxygen Delivery Intake/Output Intake/Output: Intake & Output 10/10/24 10/11/24 10/12/24 10/13/24 23:59 23:59 23:59 23:59 Intake Total 1999 Output Total 300 Balance 2000 -300 Meds/Results Medications: Active Medications Generic Name Dose Route Start Last Admin Trade Name Freq PRN Reason Stop Dose Admin Acetaminophen 650 mg 10/13/24 09:39 Acetaminophen 325 Mg Tablet PO Q4-6H PRN pain Carvedilol 12.5 mg 10/13/24 09:40 10/13/24 10:17 Carvedilol 12.5 Mg Tablet PO 12.5 mg Q12HR ALEIDA Administration Dextrose 12.5 gm 10/12/24 22:01 10/12/24 22:12 Dextrose 50% 25 Gm/50 Ml Syringe IV PUSH 12.5 gm PRN PRN Administration Hypoglycemia Protocol Glucagon 1 mg 10/12/24 22:01 Glucagon For Inj 1 Mg Vial IM PRN PRN Hypoglycemia Protocol Glucose 15 gm 10/12/24 22:01 Glucose Oral Gel 15 Gm Of Glucse In 37.5 Gm Tube PO PRN PRN Hypoglycemia Protocol Dextrose 1,000 mls @ 100 mls/hr 10/12/24 22:01 10/13/24 01:18 Dextrose 5% 1,000 Ml IVPB 100 mls/hr PRN PRN Administration Hypoglycemia Protocol Dextrose 1,000 mls @ 100 mls/hr 10/13/24 12:00 10/13/24 12:09 Dextrose 5% 1,000 Ml IV CONT 100 mls/hr .Q10H ALEIDA Administration Lisinopril 10 mg 10/13/24 09:45 10/13/24 10:17 Lisinopril 10 Mg Tablet PO 10 mg DAILY ALEIDA Administration Trazodone HCl 25 mg 10/13/24 21:00 Trazodone Hcl 25 Mg Tablet PO HS [facility] [place] Radiology Results: ITS Impressions Head CT 10/12/24 14:58 IMPRESSION: No acute intracranial findings. Chest/Abdomen/Pelvis CT 10/12/24 15:24 IMPRESSION: CHEST: 1. No acute cardiopulmonary pathology. 2. Prominent pulmonary arteries which may indicate pulmonary hypertension. 3. Mild cardiomegaly. ABDOMEN/PELVIS: 1. No evidence of appendicitis, diverticulitis or intestinal obstruction. 2. Small sliding hiatus hernia. 3. Thickened wall of the rectum which may indicate proctitis. 4. Compression fracture of L1. Further evaluation advised. 5. Hyperdense lesion in the left kidney which may be hemorrhagic cyst or a mass. Follow-up advised. 6. Parapelvic cysts versus mild hydronephrotic changes in the left kidney. Labs Labs: Laboratory Results - last 24 hr 10/12/24 10/12/24 10/12/24 13:06 13:07 14:38 WBC RBC Hgb Hct MCV MCH MCHC RDW Plt Count MPV Immature Gran % (Auto) Neut % (Auto) Lymph % (Auto) [place] % (Auto) Eos % (Auto) Baso % (Auto) Lymph # (Auto) [place] # (Auto) Eos # (Auto) Baso # (Auto) Abs Immat Gran (auto) Absolute Neuts (auto) Absolute Nucleated RBC Nucleated RBC % PT 13.3 INR 1.0 APTT 25.1 Sodium 142 Potassium 3.7 Chloride 108 H Carbon Dioxide 20 L Anion Gap 14 H BUN 24 H Creatinine 1.03 H Estim Creat Clear Calc 36 Estimated GFR 52 L Glucose 78 POC Capillary Glucose Lactic Acid 1.4 Calcium 9.7 Phosphorus 3.9 Magnesium 1.4 L Total Bilirubin 0.7 AST 45 H ALT 19 Alkaline Phosphatase 77 Total Creatine Kinase 775 H Troponin I 0.016 Total Protein 7.5 Albumin 4.0 TSH (Reflex) 1.880 Urine Color Urine Appearance Urine pH Ur Specific [place] Urine Protein Urine Glucose (UA) Urine Ketones Ur Blood (Man) Urine Nitrate Urine Bilirubin Urine Urobilinogen Leukocyte Esterase Rfl Urine RBC Urine WBC Ur Squamous Epith Cells Urine Bacteria Urine Casts Urine Opiates Screen Urine Methadone Screen Ur Barbiturates Screen Ur Phencyclidine Scrn Ur Amphetamine Screen U Benzodiazepines Scrn Urine Cocaine Screen U Cannabinoids Screen Ethyl Alcohol < 10 Influenza A (RT-PCR) Negative Influenza B (RT-PCR) Negative RSV (RT-PCR) Negative SARS-CoV-2 RNA (RT-PCR) Negative 10/12/24 10/12/24 10/12/24 14:48 17:10 21:56 WBC RBC Hgb Hct MCV MCH MCHC RDW Plt Count MPV Immature Gran % (Auto) Neut % (Auto) Lymph % (Auto) [place] % (Auto) Eos % (Auto) Baso % (Auto) Lymph # (Auto) [place] # (Auto) Eos # (Auto) Baso # (Auto) Abs Immat Gran (auto) Absolute Neuts (auto) Absolute Nucleated RBC Nucleated RBC % PT INR APTT Sodium Potassium Chloride Carbon Dioxide Anion Gap BUN Creatinine Estim Creat Clear Calc Estimated GFR Glucose POC Capillary Glucose 62 L Lactic Acid Calcium Phosphorus Magnesium Total Bilirubin AST ALT Alkaline Phosphatase Total Creatine Kinase Troponin I 0.018 Total Protein Albumin TSH (Reflex) Urine Color Yellow Urine Appearance Clear Urine pH 5.0 Ur Specific [place] 1.022 Urine Protein 2+ H Urine Glucose (UA) Negative Urine Ketones 3+ H Ur Blood (Man) 2+ H Urine Nitrate Negative Urine Bilirubin Negative Urine Urobilinogen 1.0 Leukocyte Esterase Rfl Negative Urine RBC 3-5 H Urine WBC 0-5 Ur Squamous Epith Cells Occasional Urine Bacteria None seen Urine Casts 3-5 Urine Opiates Screen Negative Urine Methadone Screen Negative Ur Barbiturates Screen Negative Ur Phencyclidine Scrn Negative Ur Amphetamine Screen Negative U Benzodiazepines Scrn Negative Urine Cocaine Screen Negative U Cannabinoids Screen Negative Ethyl Alcohol Influenza A (RT-PCR) Influenza B (RT-PCR) RSV (RT-PCR) SARS-CoV-2 RNA (RT-PCR) 10/12/24 10/13/24 10/13/24 22:46 01:07 05:01 WBC RBC Hgb Hct MCV MCH MCHC RDW Plt Count MPV Immature Gran % (Auto) Neut % (Auto) Lymph % (Auto) [place] % (Auto) Eos % (Auto) Baso % (Auto) Lymph # (Auto) [place] # (Auto) Eos # (Auto) Baso # (Auto) Abs Immat Gran (auto) Absolute Neuts (auto) Absolute Nucleated RBC Nucleated RBC % PT INR APTT Sodium Potassium Chloride Carbon Dioxide Anion Gap BUN Creatinine Estim Creat Clear Calc Estimated GFR Glucose POC Capillary Glucose 90 65 91 Lactic Acid Calcium Phosphorus Magnesium Total Bilirubin AST ALT Alkaline Phosphatase Total Creatine Kinase Troponin I Total Protein Albumin TSH (Reflex) Urine Color Urine Appearance Urine pH Ur Specific [place] Urine Protein Urine Glucose (UA) Urine Ketones Ur Blood (Man) Urine Nitrate Urine Bilirubin Urine Urobilinogen Leukocyte Esterase Rfl Urine RBC Urine WBC Ur Squamous Epith Cells Urine Bacteria Urine Casts Urine Opiates Screen Urine Methadone Screen Ur Barbiturates Screen Ur Phencyclidine Scrn Ur Amphetamine Screen U Benzodiazepines Scrn Urine Cocaine Screen U Cannabinoids Screen Ethyl Alcohol Influenza A (RT-PCR) Influenza B (RT-PCR) RSV (RT-PCR) SARS-CoV-2 RNA (RT-PCR) 10/13/24 10/13/24 10/13/24 07:29 07:41 11:56 WBC 6.3 RBC 2.86 L Hgb 8.2 L Hct 26.1 L MCV 91.3 MCH 28.7 MCHC 31.4 L RDW 13.6 Plt Count 245 MPV 10.0 Immature Gran % (Auto) 0.3 Neut % (Auto) 70.3 Lymph % (Auto) 15.0 L [place] % (Auto) 12.0 H Eos % (Auto) 1.9 Baso % (Auto) 0.5 Lymph # (Auto) 0.94 [place] # (Auto) 0.8 H Eos # (Auto) 0.1 Baso # (Auto) 0.0 Abs Immat Gran (auto) 0.02 Absolute Neuts (auto) 4.4 Absolute Nucleated RBC 0.000 Nucleated RBC % 0.0 PT INR APTT Sodium 138 Potassium 3.3 L Chloride 110 H Carbon Dioxide 21 L Anion Gap 7 BUN 18 H Creatinine 0.98 Estim Creat Clear Calc 39 Estimated GFR 55 L Glucose 85 POC Capillary Glucose 79 90 Lactic Acid Calcium 8.9 Phosphorus Magnesium Total Bilirubin 0.5 AST 38 H ALT 16 Alkaline Phosphatase 59 Total Creatine Kinase 557 H Troponin I Total Protein 5.8 L Albumin 2.9 L TSH (Reflex) Urine Color Urine Appearance Urine pH Ur Specific [place] Urine Protein Urine Glucose (UA) Urine Ketones Ur Blood (Man) Urine Nitrate Urine Bilirubin Urine Urobilinogen Leukocyte Esterase Rfl Urine RBC Urine WBC Ur Squamous Epith Cells Urine Bacteria Urine Casts Urine Opiates Screen Urine Methadone Screen Ur Barbiturates Screen Ur Phencyclidine Scrn Ur Amphetamine Screen U Benzodiazepines Scrn Urine Cocaine Screen U Cannabinoids Screen Ethyl Alcohol Influenza A (RT-PCR) Influenza B (RT-PCR) RSV (RT-PCR) SARS-CoV-2 RNA (RT-PCR)
[2024-10-13] MEDS: MORPHINE SULFATE (*CRX) 2 MG/ML INJ IV PUSH (18:17)
[2024-10-13] MEDS: HYDROcodone/acetaminophen (*CRX) 5-325 MG TABLET 1 TAB PO (20:13)
[2024-10-14 05:01] VITALS: BP 143/75; PULSE 74; RESP 19; TEMP 36.4; O2SAT 94
[2024-10-14] MEDS: DEXTROSE 5% 1,000 ML 1,000 ML 100 ML IV CONT (05:55)
[2024-10-14 06:16] LABS: Hematocrit 30.8 % (37.0-47.0); Hemoglobin 9.8 g/dL (12.0-15.0); Immature Granulocyte Percent A 0.3 % (0-0.5); Lymphocytes Absolute Auto 1.57 K/mm3 (0.9-3.2); Mean Corpuscular HGB Conc 31.8 g/dl (32-36); Mean Corpuscular Hemoglobin 29.1 pg (26-34); Mean Corpuscular Volume 91.4 fl (80-100); Nucleated Red Blood Cells Absolute Auto 0.000 K/mm3 (0.0-0.012); Nucleated Red Blood Cells Perc 0.0 % (0.0-0.2); Platelet Count Result 251 k/mm3 (150-375); Red Blood Count 3.37 M/mm3 (4.2-5.4); White Blood Count 7.7 K/mm3 (4.5-10.0)
[2024-10-14 06:44] LABS: Alanine Aminotransferase 22 U/L (6-35); Albumin Level 3.4 g/dL (3.5-5.1); Alkaline Phosphatase 67 U/L (38-126); Anion Gap 9 mmol/L (4-12); Aspartate Amino Transferase 40 U/L (14-36); Bilirubin,Total 0.7 mg/dL (0.2-1.3); Blood Urea Nitrogen 12 mg/dL (7-17); Calcium 9.1 mg/dL (8.4-10.2); Carbon Dioxide 21 mmol/L (22-30); Chloride 105 mmol/L (98-107); Creatine Kinase 521 U/L (30-135); Estimated CRCL calculation 40 ml/min; Estimated Glomerular Filt Rate 56; Glucose 93 mg/dL (65-110); Potassium 3.3 mmol/L (3.4-5.0); Sodium 135 mmol/L (137-145); Total Protein 6.5 g/dL (6.3-8.2)
--- NOTE | 2024-10-14 06:54 | PC.NURSE ---
Pt been very restless all night, kept pulling her IV's , even with dressing on. spitted her meds last night, took only one of them. provider of evening Corazon was notified. pt refuses to drink or eat. charge nurse is also updated.
--- NOTE | 2024-10-14 11:54 | P.PNIM_ITS ---
Progress Note: A&P Assessment and Plan (1) Adult failure to thrive: Code(s): R62.7 - Adult failure to thrive Status: Acute Assessment and Plan: -patient unable to care for herself -evidence of caregiver strain -Consult care coordination for possible placement to LTC vs. Hospice -Patient family not wanting to do hospice yet. (2) Confusion: Code(s): R41.0 - Disorientation, unspecified Status: Acute Assessment and Plan: -needs LTC placement (3) Suicidal ideations: Code(s): R45.851 - Suicidal ideations Status: Acute Assessment and Plan: -Patients daughter states that she has been talking about harming herself and wanting to while at home -Patient unable to answer questions at the time of evaluation. -If she becomes actively suicidal then will need a psych evaluation. (4) Altered mental status: Code(s): R41.82 - Altered mental status, unspecified Status: Acute Assessment and Plan: -Monitor vitals and las. -CBC, CMP, urine, and scans negative. -UDS is negative (5) Falls frequently: Code(s): R29.6 - Repeated falls Status: Acute Assessment and Plan: -patient recently found on the floor at home residents -unknown down time (6) Elevated CK: Code(s): R74.8 - Abnormal levels of other serum enzymes Status: Acute Assessment and Plan: -CK 775 -> 557 -> 521 -Continue IV fluids Plan Continue home medications: VTE Prophylaxis: SCDs DIET: regular diet Anticipated hospital stay: > 2 days Code Status: DNR Subjective Date/time seen: 10/14/24 11:54 Interval history: Patient is a 79-year-old female with PMHx of but not limited to HTN, who presented to the ED with chief complaint of failure to thrive by family member, patient was originally seen in the ED several days ago prior to today with concerns about decreasing functional status. 10/14/2024 Pt sitting in bed at time of exam. Moved from 307 -> 333. Discussed care with nurse and Care coordination. Granddaughter requesting psych eval for SI - psych will be consulted at this time. Working with CC and family regarding [facility] care facility vs hospice. Family likely leaning towards LTC at this time. Will discuss with CC - likely d/c tomorrow pending acceptance to facility. Exam Narrative: GENERAL: Comfortable, no acute distress RESPIRATORY: clear to auscultation, no increased respiratory effort CARDIO: Regular rate and rhythm SKIN/EXTREMITIES: no rashes, no edema, no redness or tenderness NEURO: A&O x0 Objective Data Vital Signs Vital Signs: Vital Signs - 24 hr 10/13/24 14:00 10/13/24 20:00 10/13/24 20:14 Temperature 96.8 F L Pulse Rate 106 H 96 102 H Respiratory Rate 20 19 Blood Pressure 155/71 H Pulse Oximetry 97 92 Oxygen Delivery Room Air 10/13/24 20:38 10/14/24 05:01 Temperature 98.8 F 97.6 F Pulse Rate 96 74 Respiratory Rate 19 19 Blood Pressure 152/62 H 143/75 H Pulse Oximetry 92 94 Oxygen Delivery Intake/Output Intake/Output: Intake & Output 10/11/24 10/12/24 10/13/24 10/14/24 23:59 23:59 23:59 23:59 Intake Total 1999 806.7 970 Output Total 600 100 Balance 1999 206.7 870 Meds/Results Medications: Active Medications Generic Name Dose Route Start Last Admin Trade Name Freq PRN Reason Stop Dose Admin Acetaminophen 650 mg 10/13/24 09:39 Acetaminophen 325 Mg Tablet PO Q4-6H PRN pain Acetaminophen 325 mg 10/13/24 13:27 Acetaminophen 325 Mg Tablet PO Q6H PRN Mild Pain (1-3) or Fever Hydrocodone Bitart/Acetaminophen 1 tab 10/13/24 13:27 10/13/24 20:13 Hydrocodone/Acetaminophen (*Crx) 5-325 Mg Tablet PO 1 tab Q6H PRN Administration Pain Rated 4-6 Carvedilol 12.5 mg 10/13/24 09:40 10/14/24 10:49 Carvedilol 12.5 Mg Tablet PO Not Given Q12HR [facility] Dextrose 12.5 gm 10/12/24 22:01 10/12/24 22:12 Dextrose 50% 25 Gm/50 Ml Syringe IV PUSH 12.5 gm PRN PRN Administration Hypoglycemia Protocol Glucagon 1 mg 10/12/24 22:01 Glucagon For Inj 1 Mg Vial IM PRN PRN Hypoglycemia Protocol Glucose 15 gm 10/12/24 22:01 Glucose Oral Gel 15 Gm Of Glucse In 37.5 Gm Tube PO PRN PRN Hypoglycemia Protocol Dextrose 1,000 mls @ 100 mls/hr 10/12/24 22:01 10/13/24 01:18 Dextrose 5% 1,000 Ml IVPB 100 mls/hr PRN PRN Administration Hypoglycemia Protocol Dextrose 1,000 mls @ 100 mls/hr 10/13/24 12:00 10/14/24 05:55 Dextrose 5% 1,000 Ml IV CONT 100 mls/hr .Q10H ALEIDA Administration Lisinopril 10 mg 10/13/24 09:45 10/14/24 10:50 Lisinopril 10 Mg Tablet PO Not Given DAILY [facility] Miscellaneous Information 1 each 10/14/24 00:01 Order Clarification - Acetaminophen 325 Or 650mg XX 11/13/24 00:00 CLARIFY [facility] Morphine Sulfate 2 mg 10/13/24 13:27 10/13/24 18:17 Morphine Sulfate (*Crx) 2 Mg/Ml Inj IV PUSH 2 mg Q4H PRN Administration Pain Rated 7-10 Trazodone HCl 25 mg 10/13/24 21:00 10/13/24 20:14 Trazodone Hcl 25 Mg Tablet PO Not Given HS [facility] Radiology Results: ITS Impressions Head CT 10/12/24 14:58 IMPRESSION: No acute intracranial findings. Chest/Abdomen/Pelvis CT 10/12/24 15:24 IMPRESSION: CHEST: 1. No acute cardiopulmonary pathology. 2. Prominent pulmonary arteries which may indicate pulmonary hypertension. 3. Mild cardiomegaly. ABDOMEN/PELVIS: 1. No evidence of appendicitis, diverticulitis or intestinal obstruction. 2. Small sliding hiatus hernia. 3. Thickened wall of the rectum which may indicate proctitis. 4. Compression fracture of L1. Further evaluation advised. 5. Hyperdense lesion in the left kidney which may be hemorrhagic cyst or a mass. Follow-up advised. 6. Parapelvic cysts versus mild hydronephrotic changes in the left kidney. Labs Labs: Laboratory Results - last 24 hr 10/13/24 10/13/24 10/13/24 11:56 16:28 23:39 WBC RBC Hgb Hct MCV MCH MCHC RDW Plt Count MPV Immature Gran % (Auto) Neut % (Auto) Lymph % (Auto) [place] % (Auto) Eos % (Auto) Baso % (Auto) Lymph # (Auto) [place] # (Auto) Eos # (Auto) Baso # (Auto) Abs Immat Gran (auto) Absolute Neuts (auto) Absolute Nucleated RBC Nucleated RBC % Sodium Potassium Chloride Carbon Dioxide Anion Gap BUN Creatinine Estim Creat Clear Calc Estimated GFR Glucose POC Capillary Glucose 90 88 108 H Calcium Total Bilirubin AST ALT Alkaline Phosphatase Total Creatine Kinase Total Protein Albumin 10/14/24 10/14/24 10/14/24 06:07 08:25 11:18 WBC 7.7 RBC 3.37 L Hgb 9.8 L Hct 30.8 L MCV 91.4 MCH 29.1 MCHC 31.8 L RDW 13.2 Plt Count 251 MPV 9.8 Immature Gran % (Auto) 0.3 Neut % (Auto) 66.0 Lymph % (Auto) 20.5 [place] % (Auto) 12.1 H Eos % (Auto) 0.8 Baso % (Auto) 0.3 Lymph # (Auto) 1.57 [place] # (Auto) 0.9 H Eos # (Auto) 0.1 Baso # (Auto) 0.0 Abs Immat Gran (auto) 0.02 Absolute Neuts (auto) 5.1 Absolute Nucleated RBC 0.000 Nucleated RBC % 0.0 Sodium 135 L Potassium 3.3 L Chloride 105 Carbon Dioxide 21 L Anion Gap 9 BUN 12 D Creatinine 0.96 Estim Creat Clear Calc 40 Estimated GFR 56 L Glucose 93 POC Capillary Glucose 85 86 Calcium 9.1 Total Bilirubin 0.7 AST 40 H ALT 22 Alkaline Phosphatase 67 Total Creatine Kinase 521 H Total Protein 6.5 Albumin 3.4 L
[2024-10-14 14:09] VITALS: PULSE 106; RESP 18; TEMP 37.1; O2SAT 97
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
[2024-10-14 18:28] VITALS: PULSE 106
[2024-10-14] MEDS: ACETAMINOPHEN 325 MG TABLET 650 MG PO (18:28)
[2024-10-15 05:56] LABS: Hematocrit 29.1 % (37.0-47.0); Hemoglobin 9.4 g/dL (12.0-15.0); Immature Granulocyte Percent A 0.4 % (0-0.5); Lymphocytes Absolute Auto 0.98 K/mm3 (0.9-3.2); Mean Corpuscular HGB Conc 32.3 g/dl (32-36); Mean Corpuscular Hemoglobin 28.6 pg (26-34); Mean Corpuscular Volume 88.4 fl (80-100); Nucleated Red Blood Cells Absolute Auto 0.000 K/mm3 (0.0-0.012); Nucleated Red Blood Cells Perc 0.0 % (0.0-0.2); Platelet Count Result 254 k/mm3 (150-375); Red Blood Count 3.29 M/mm3 (4.2-5.4); White Blood Count 5.5 K/mm3 (4.5-10.0)
[2024-10-15 06:00] VITALS: BP 135/88; PULSE 95; RESP 16; TEMP 37.4; O2SAT 99
[2024-10-15 06:25] LABS: Alanine Aminotransferase 20 U/L (6-35); Albumin Level 3.2 g/dL (3.5-5.1); Alkaline Phosphatase 63 U/L (38-126); Anion Gap 7 mmol/L (4-12); Aspartate Amino Transferase 32 U/L (14-36); Bilirubin,Total 0.5 mg/dL (0.2-1.3); Blood Urea Nitrogen 13 mg/dL (7-17); Calcium 8.7 mg/dL (8.4-10.2); Carbon Dioxide 23 mmol/L (22-30); Chloride 105 mmol/L (98-107); Creatine Kinase 332 U/L (30-135); Estimated CRCL calculation 41 ml/min; Estimated Glomerular Filt Rate 57; Glucose 76 mg/dL (65-110); Potassium 2.8 mmol/L (3.4-5.0); Sodium 135 mmol/L (137-145); Total Protein 6.1 g/dL (6.3-8.2)
[2024-10-15] MEDS: POTASSIUM CHLORIDE 20 MEQ ER TABLET 40 MEQ PO (08:45)
[2024-10-15] MEDS: SERTRALINE HCL 25 MG TABLET PO (08:46)
[2024-10-15] MEDS: ACETAMINOPHEN 325 MG TABLET 650 MG PO (08:57)
[2024-10-15 13:15] LABS: Potassium 3.3 mmol/L (3.4-5.0)
[2024-10-15 14:00] VITALS: BP 108/50; PULSE 85; RESP 16; TEMP 36.6; O2SAT 99
--- NOTE | 2024-10-15 14:20 | P.PNIM_ITS ---
Progress Note: A&P Assessment and Plan (1) Adult failure to thrive: Code(s): R62.7 - Adult failure to thrive Status: Acute Assessment and Plan: -patient unable to care for herself -evidence of caregiver strain -Consult care coordination for possible placement to LTC vs. Hospice -Patient family not wanting to do hospice yet. -working with care coordination regarding SNF verses home health (2) Confusion: Code(s): R41.0 - Disorientation, unspecified Status: Acute Assessment and Plan: -needs LTC placement (3) Suicidal ideations: Code(s): R45.851 - Suicidal ideations Status: Acute Assessment and Plan: -Patients daughter states that she has been talking about harming herself and wanting to while at home -Patient unable to answer questions at the time of evaluation. -psychiatry consulted Start sertraline 25 mg daily Informed patient that medication takes time to become effective Follow-up psychiatric care provider for medication management (4) Altered mental status: Code(s): R41.82 - Altered mental status, unspecified Status: Acute Assessment and Plan: -Monitor vitals and las. -CBC, CMP, urine, and scans negative. -UDS is negative (5) Falls frequently: Code(s): R29.6 - Repeated falls Status: Acute Assessment and Plan: -patient recently found on the floor at home residents -unknown down time (6) Elevated CK: Code(s): R74.8 - Abnormal levels of other serum enzymes Status: Acute Assessment and Plan: -CK 775 -> 557 -> 521 -Continue IV fluids Plan Continue home medications: VTE Prophylaxis: SCDs DIET: regular diet Anticipated hospital stay: > 2 days Code Status: DNR Subjective Date/time seen: 10/15/24 14:20 Interval history: Patient is a 79-year-old female with PMHx of but not limited to HTN, who presented to the ED with chief complaint of failure to thrive by family member, patient was originally seen in the ED several days ago prior to today with concerns about decreasing functional status. 10/15/2024 Pt sitting in bed at time of exam. Continue to work with care coordination regarding placement -likely will require a long-term care facility verses SNF. Will keep in touch regularly with CC regarding placement. Remains A&O x1. Patient is otherwise hemodynamically stable and has no concerns or complaints at this time. Review of Systems Review of Systems: ROS unobtainable: Yes unobtainable due to mental status Exam Narrative: GENERAL: Comfortable, no acute distress RESPIRATORY: clear to auscultation, no increased respiratory effort CARDIO: Regular rate and rhythm SKIN/EXTREMITIES: no rashes, no edema, no redness or tenderness NEURO: A&O x1 Objective Data Vital Signs Vital Signs: Vital Signs - 24 hr 10/14/24 18:28 10/15/24 06:00 10/15/24 08:00 Temperature 99.3 F Pulse Rate 106 H 95 Respiratory Rate 16 Blood Pressure 135/88 Pulse Oximetry 99 Oxygen Delivery Room Air Intake/Output Intake/Output: Intake & Output 10/12/24 10/13/24 10/14/24 10/15/24 23:59 23:59 23:59 23:59 Intake Total 1999 806.7 970 720 Output Total 600 100 Balance 1999 206.7 870 720 Meds/Results Medications: Active Medications Generic Name Dose Route Start Last Admin Trade Name Freq PRN Reason Stop Dose Admin Acetaminophen 650 mg 10/13/24 09:39 10/15/24 08:57 Acetaminophen 325 Mg Tablet PO 650 mg Q4-6H PRN Administration pain Hydrocodone Bitart/Acetaminophen 1 tab 10/13/24 13:27 10/13/24 20:13 Hydrocodone/Acetaminophen (*Crx) 5-325 Mg Tablet PO 1 tab Q6H PRN Administration Pain Rated 4-6 Carvedilol 12.5 mg 10/13/24 09:40 10/15/24 08:46 Carvedilol 12.5 Mg Tablet PO 12.5 mg Q12HR ALEIDA Administration Dextrose 12.5 gm 10/12/24 22:01 10/12/24 22:12 Dextrose 50% 25 Gm/50 Ml Syringe IV PUSH 12.5 gm PRN PRN Administration Hypoglycemia Protocol Glucagon 1 mg 10/12/24 22:01 Glucagon For Inj 1 Mg Vial IM PRN PRN Hypoglycemia Protocol Glucose 15 gm 10/12/24 22:01 Glucose Oral Gel 15 Gm Of Glucse In 37.5 Gm Tube PO PRN PRN Hypoglycemia Protocol Dextrose 1,000 mls @ 100 mls/hr 10/12/24 22:01 10/13/24 01:18 Dextrose 5% 1,000 Ml IVPB 100 mls/hr PRN PRN Administration Hypoglycemia Protocol Dextrose 1,000 mls @ 100 mls/hr 10/13/24 12:00 10/15/24 08:44 Dextrose 5% 1,000 Ml IV CONT Not Given .Q10H ALEIDA Lisinopril 10 mg 10/13/24 09:45 10/15/24 08:46 Lisinopril 10 Mg Tablet PO 10 mg DAILY ALEIDA Administration Morphine Sulfate 2 mg 10/13/24 13:27 10/13/24 18:17 Morphine Sulfate (*Crx) 2 Mg/Ml Inj IV PUSH 2 mg Q4H PRN Administration Pain Rated 7-10 Sertraline HCl 25 mg 10/15/24 09:00 10/15/24 08:46 Sertraline Hcl 25 Mg Tablet PO 25 mg QAM ALEIDA Administration Trazodone HCl 25 mg 10/13/24 21:00 10/14/24 18:28 Trazodone Hcl 25 Mg Tablet PO 25 mg HS ALEIDA Administration Radiology Results: ITS Impressions Head CT 10/12/24 14:58 IMPRESSION: No acute intracranial findings. Chest/Abdomen/Pelvis CT 10/12/24 15:24 IMPRESSION: CHEST: 1. No acute cardiopulmonary pathology. 2. Prominent pulmonary arteries which may indicate pulmonary hypertension. 3. Mild cardiomegaly. ABDOMEN/PELVIS: 1. No evidence of appendicitis, diverticulitis or intestinal obstruction. 2. Small sliding hiatus hernia. 3. Thickened wall of the rectum which may indicate proctitis. 4. Compression fracture of L1. Further evaluation advised. 5. Hyperdense lesion in the left kidney which may be hemorrhagic cyst or a mass. Follow-up advised. 6. Parapelvic cysts versus mild hydronephrotic changes in the left kidney. Labs Labs: Laboratory Results - last 24 hr 10/14/24 10/14/24 10/15/24 16:55 21:34 05:37 WBC 5.5 RBC 3.29 L Hgb 9.4 L Hct 29.1 L MCV 88.4 MCH 28.6 MCHC 32.3 RDW 13.2 Plt Count 254 MPV 9.9 Immature Gran % (Auto) 0.4 Neut % (Auto) 66.9 Lymph % (Auto) 17.9 L [place] % (Auto) 11.5 H Eos % (Auto) 2.9 Baso % (Auto) 0.4 Lymph # (Auto) 0.98 [place] # (Auto) 0.6 Eos # (Auto) 0.2 Baso # (Auto) 0.0 Abs Immat Gran (auto) 0.02 Absolute Neuts (auto) 3.7 Absolute Nucleated RBC 0.000 Nucleated RBC % 0.0 Sodium 135 L Potassium 2.8 L* Chloride 105 Carbon Dioxide 23 Anion Gap 7 BUN 13 Creatinine 0.94 Estim Creat Clear Calc 41 Estimated GFR 57 L Glucose 76 POC Capillary Glucose 81 113 H Calcium 8.7 Total Bilirubin 0.5 AST 32 ALT 20 Alkaline Phosphatase 63 Total Creatine Kinase 332 H Total Protein 6.1 L Albumin 3.2 L 10/15/24 10/15/24 10/15/24 08:01 11:34 12:49 WBC RBC Hgb Hct MCV MCH MCHC RDW Plt Count MPV Immature Gran % (Auto) Neut % (Auto) Lymph % (Auto) [place] % (Auto) Eos % (Auto) Baso % (Auto) Lymph # (Auto) [place] # (Auto) Eos # (Auto) Baso # (Auto) Abs Immat Gran (auto) Absolute Neuts (auto) Absolute Nucleated RBC Nucleated RBC % Sodium Potassium 3.3 L Chloride Carbon Dioxide Anion Gap BUN Creatinine Estim Creat Clear Calc Estimated GFR Glucose POC Capillary Glucose 80 90 Calcium Total Bilirubin AST ALT Alkaline Phosphatase Total Creatine Kinase Total Protein Albumin
[2024-10-15] MEDS: POTASSIUM CHLORIDE 20 MEQ ER TABLET PO (15:40)
[2024-10-15 20:00] VITALS: PULSE 73; RESP 16; O2SAT 98
[2024-10-15 20:54] VITALS: BP 118/84; PULSE 73; PULSE 85; RESP 16; TEMP 36.3; O2SAT 98
[2024-10-15 21:27] VITALS: O2SAT 98
[2024-10-16] VITALS (7 sets, daily range): BP systolic 120–135; BP diastolic 65–79; PULSE 75–87; RESP 14–20; TEMP 36.3–36.4; O2SAT 96–100
[2024-10-16 06:11] LABS: Hematocrit 32.6 % (37.0-47.0); Hemoglobin 10.3 g/dL (12.0-15.0); Immature Granulocyte Percent A 0.3 % (0-0.5); Lymphocytes Absolute Auto 0.99 K/mm3 (0.9-3.2); Mean Corpuscular HGB Conc 31.6 g/dl (32-36); Mean Corpuscular Hemoglobin 28.5 pg (26-34); Mean Corpuscular Volume 90.3 fl (80-100); Nucleated Red Blood Cells Absolute Auto 0.000 K/mm3 (0.0-0.012); Nucleated Red Blood Cells Perc 0.0 % (0.0-0.2); Platelet Count Result 284 k/mm3 (150-375); Red Blood Count 3.61 M/mm3 (4.2-5.4); White Blood Count 6.2 K/mm3 (4.5-10.0)
[2024-10-16 06:32] LABS: Alanine Aminotransferase 18 U/L (6-35); Albumin Level 3.3 g/dL (3.5-5.1); Alkaline Phosphatase 65 U/L (38-126); Anion Gap 9 mmol/L (4-12); Aspartate Amino Transferase 32 U/L (14-36); Bilirubin,Total 0.5 mg/dL (0.2-1.3); Blood Urea Nitrogen 16 mg/dL (7-17); Calcium 8.8 mg/dL (8.4-10.2); Carbon Dioxide 21 mmol/L (22-30); Chloride 107 mmol/L (98-107); Creatine Kinase 159 U/L (30-135); Estimated CRCL calculation 43 ml/min; Estimated Glomerular Filt Rate > 60; Glucose 79 mg/dL (65-110); Potassium 3.4 mmol/L (3.4-5.0); Sodium 137 mmol/L (137-145); Total Protein 6.3 g/dL (6.3-8.2)
[2024-10-16] MEDS: SERTRALINE HCL 25 MG TABLET PO (09:59)
--- NOTE | 2024-10-16 14:49 | PM.IMPN ---
Progress Note: A&P Assessment and Plan (1) Adult failure to thrive: Code(s): R62.7 - Adult failure to thrive Status: Acute Assessment and Plan: -patient unable to care for herself -evidence of caregiver strain -Consult care coordination for possible placement to LTC vs. Hospice -Patient family not wanting to do hospice yet. -working with care coordination regarding SNF verses home health -accepted at snf - waiting on authorization and payment as facility requires upfront payment (2) Confusion: Code(s): R41.0 - Disorientation, unspecified Status: Acute Assessment and Plan: -needs LTC placement (3) Suicidal ideations: Code(s): R45.851 - Suicidal ideations Status: Acute Assessment and Plan: -Patients daughter states that she has been talking about harming herself and wanting to while at home -Patient unable to answer questions at the time of evaluation. -psychiatry consulted Start sertraline 25 mg daily Informed patient that medication takes time to become effective Follow-up psychiatric care provider for medication management (4) Altered mental status: Code(s): R41.82 - Altered mental status, unspecified Status: Acute Assessment and Plan: -Monitor vitals and las. -CBC, CMP, urine, and scans negative. -UDS is negative (5) Falls frequently: Code(s): R29.6 - Repeated falls Status: Acute Assessment and Plan: -patient recently found on the floor at home residents -unknown down time (6) Elevated CK: Code(s): R74.8 - Abnormal levels of other serum enzymes Status: Acute Assessment and Plan: -CK 775 -> 557 -> 521 -Continue IV fluids Plan Continue home medications: VTE Prophylaxis: SCDs DIET: regular diet Anticipated hospital stay: > 2 days Code Status: DNR Subjective Date/time seen: 10/16/24 14:49 Interval history: Patient is a 79-year-old female with PMHx of but not limited to HTN, who presented to the ED with chief complaint of failure to thrive by family member, patient was originally seen in the ED several days ago prior to today with concerns about decreasing functional status. 10/16/2024 Pt sitting in bed at time of exam. Continue to work with care coordination regarding placement - pt has been accepted at SNF and is willing to pay but waiting on granddaughter to bring checkbook as nursing facility requires payment up front. Pt is much more alert today - A&Ox2-3. Review of Systems Review of Systems: All systems reviewed & are unremarkable except as noted in HPI and below Exam Narrative: GENERAL: Comfortable, no acute distress RESPIRATORY: clear to auscultation, no increased respiratory effort CARDIO: Regular rate and rhythm SKIN/EXTREMITIES: no rashes, no edema, no redness or tenderness NEURO: A&O x2-3 Objective Data Vital Signs Vital Signs: Vital Signs - 24 hr 10/15/24 20:00 10/15/24 20:54 10/15/24 20:54 Temperature 97.4 F L Pulse Rate 73 85 73 Respiratory Rate 16 16 Blood Pressure 118/84 Pulse Oximetry 98 98 Oxygen Delivery Room Air 10/15/24 21:27 10/16/24 05:40 10/16/24 08:00 Temperature 97.6 F Pulse Rate 79 79 Respiratory Rate 20 20 Blood Pressure 135/79 Pulse Oximetry 98 96 96 Oxygen Delivery Room Air Room Air 10/16/24 14:00 Temperature 97.6 F Pulse Rate 75 Respiratory Rate 14 Blood Pressure 120/65 Pulse Oximetry 100 Oxygen Delivery Intake/Output Intake/Output: Intake & Output 10/13/24 10/14/24 10/15/24 10/16/24 23:59 23:59 23:59 23:59 Intake Total 806.7 970 1200 790 Output Total 600 100 Balance 206.7 870 1200 790 Meds/Results Medications: Active Medications Generic Name Dose Route Start Last Admin Trade Name Freq PRN Reason Stop Dose Admin Acetaminophen 650 mg 10/13/24 09:39 10/15/24 08:57 Acetaminophen 325 Mg Tablet PO 650 mg Q4-6H PRN Administration pain Hydrocodone Bitart/Acetaminophen 1 tab 10/13/24 13:27 10/13/24 20:13 Hydrocodone/Acetaminophen (*Crx) 5-325 Mg Tablet PO 1 tab Q6H PRN Administration Pain Rated 4-6 Carvedilol 12.5 mg 10/13/24 09:40 10/16/24 09:59 Carvedilol 12.5 Mg Tablet PO 12.5 mg Q12HR ALEIDA Administration Dextrose 12.5 gm 10/12/24 22:01 10/12/24 22:12 Dextrose 50% 25 Gm/50 Ml Syringe IV PUSH 12.5 gm PRN PRN Administration Hypoglycemia Protocol Glucagon 1 mg 10/12/24 22:01 Glucagon For Inj 1 Mg Vial IM PRN PRN Hypoglycemia Protocol Glucose 15 gm 10/12/24 22:01 Glucose Oral Gel 15 Gm Of Glucse In 37.5 Gm Tube PO PRN PRN Hypoglycemia Protocol Dextrose 1,000 mls @ 100 mls/hr 10/12/24 22:01 10/13/24 01:18 Dextrose 5% 1,000 Ml IVPB 100 mls/hr PRN PRN Administration Hypoglycemia Protocol Dextrose 1,000 mls @ 100 mls/hr 10/13/24 12:00 10/16/24 09:59 Dextrose 5% 1,000 Ml IV CONT Not Given .Q10H ALEIDA Lisinopril 10 mg 10/13/24 09:45 10/16/24 09:59 Lisinopril 10 Mg Tablet PO 10 mg DAILY ALEIDA Administration Morphine Sulfate 2 mg 10/13/24 13:27 10/13/24 18:17 Morphine Sulfate (*Crx) 2 Mg/Ml Inj IV PUSH 2 mg Q4H PRN Administration Pain Rated 7-10 Sertraline HCl 25 mg 10/15/24 09:00 10/16/24 09:59 Sertraline Hcl 25 Mg Tablet PO 25 mg QAM ALEIDA Administration Trazodone HCl 25 mg 10/13/24 21:00 10/15/24 20:55 Trazodone Hcl 25 Mg Tablet PO 25 mg HS ALEIDA Administration Radiology Results: ITS Impressions Head CT 10/12/24 14:58 IMPRESSION: No acute intracranial findings. Chest/Abdomen/Pelvis CT 10/12/24 15:24 IMPRESSION: CHEST: 1. No acute cardiopulmonary pathology. 2. Prominent pulmonary arteries which may indicate pulmonary hypertension. 3. Mild cardiomegaly. ABDOMEN/PELVIS: 1. No evidence of appendicitis, diverticulitis or intestinal obstruction. 2. Small sliding hiatus hernia. 3. Thickened wall of the rectum which may indicate proctitis. 4. Compression fracture of L1. Further evaluation advised. 5. Hyperdense lesion in the left kidney which may be hemorrhagic cyst or a mass. Follow-up advised. 6. Parapelvic cysts versus mild hydronephrotic changes in the left kidney. Labs Labs: Laboratory Results - last 24 hr 10/15/24 10/15/24 10/16/24 16:39 20:58 05:35 WBC 6.2 RBC 3.61 L Hgb 10.3 L Hct 32.6 L MCV 90.3 MCH 28.5 MCHC 31.6 L RDW 13.1 Plt Count 284 MPV 10.6 H Immature Gran % (Auto) 0.3 Neut % (Auto) 72.5 Lymph % (Auto) 15.9 L [place] % (Auto) 8.8 H Eos % (Auto) 2.2 Baso % (Auto) 0.3 Lymph # (Auto) 0.99 [place] # (Auto) 0.6 Eos # (Auto) 0.1 Baso # (Auto) 0.0 Abs Immat Gran (auto) 0.02 Absolute Neuts (auto) 4.5 Absolute Nucleated RBC 0.000 Nucleated RBC % 0.0 Sodium 137 Potassium 3.4 Chloride 107 Carbon Dioxide 21 L Anion Gap 9 BUN 16 Creatinine 0.89 Estim Creat Clear Calc 43 Estimated GFR > 60 Glucose 79 POC Capillary Glucose 85 89 Calcium 8.8 Total Bilirubin 0.5 AST 32 ALT 18 Alkaline Phosphatase 65 Total Creatine Kinase 159 H Total Protein 6.3 Albumin 3.3 L 10/16/24 10/16/24 07:35 11:11 WBC RBC Hgb Hct MCV MCH MCHC RDW Plt Count MPV Immature Gran % (Auto) Neut % (Auto) Lymph % (Auto) [place] % (Auto) Eos % (Auto) Baso % (Auto) Lymph # (Auto) [place] # (Auto) Eos # (Auto) Baso # (Auto) Abs Immat Gran (auto) Absolute Neuts (auto) Absolute Nucleated RBC Nucleated RBC % Sodium Potassium Chloride Carbon Dioxide Anion Gap BUN Creatinine Estim Creat Clear Calc Estimated GFR Glucose POC Capillary Glucose 77 77 Calcium Total Bilirubin AST ALT Alkaline Phosphatase Total Creatine Kinase Total Protein Albumin Quality VTE Prophylaxis VTE prophylaxis: mechanical ordered
[2024-10-17 05:30] VITALS: BP 145/81; PULSE 74; RESP 20; TEMP 36.1; O2SAT 100
[2024-10-17 06:18] LABS: Hematocrit 32.0 % (37.0-47.0); Hemoglobin 10.4 g/dL (12.0-15.0); Immature Granulocyte Percent A 0.4 % (0-0.5); Lymphocytes Absolute Auto 1.06 K/mm3 (0.9-3.2); Mean Corpuscular HGB Conc 32.5 g/dl (32-36); Mean Corpuscular Hemoglobin 29.1 pg (26-34); Mean Corpuscular Volume 89.6 fl (80-100); Nucleated Red Blood Cells Absolute Auto 0.000 K/mm3 (0.0-0.012); Nucleated Red Blood Cells Perc 0.0 % (0.0-0.2); Platelet Count Result 314 k/mm3 (150-375); Red Blood Count 3.57 M/mm3 (4.2-5.4); White Blood Count 7.1 K/mm3 (4.5-10.0)
[2024-10-17 06:40] LABS: Alanine Aminotransferase 16 U/L (6-35); Albumin Level 3.2 g/dL (3.5-5.1); Alkaline Phosphatase 66 U/L (38-126); Anion Gap 10 mmol/L (4-12); Aspartate Amino Transferase 21 U/L (14-36); Bilirubin,Total 0.4 mg/dL (0.2-1.3); Blood Urea Nitrogen 15 mg/dL (7-17); Calcium 8.9 mg/dL (8.4-10.2); Carbon Dioxide 23 mmol/L (22-30); Chloride 107 mmol/L (98-107); Creatine Kinase 94 U/L (30-135); Estimated CRCL calculation 38 ml/min; Estimated Glomerular Filt Rate 53; Glucose 83 mg/dL (65-110); Potassium 3.4 mmol/L (3.4-5.0); Sodium 140 mmol/L (137-145); Total Protein 6.3 g/dL (6.3-8.2)
[2024-10-17 09:02] VITALS: PULSE 70
[2024-10-17] MEDS: SERTRALINE HCL 25 MG TABLET PO (09:02)
--- NOTE | 2024-10-17 11:45 | PM.DS ---
DS: Admitting Diagnosis Discharge Date 10/17/2024 Admitting Diagnosis Failure to thrive DS: Discharge Diagnosis Discharge Diagnosis (1) Adult failure to thrive: Code(s): R62.7 - Adult failure to thrive Status: Acute (2) Confusion: Code(s): R41.0 - Disorientation, unspecified Status: Acute (3) Suicidal ideations: Code(s): R45.851 - Suicidal ideations Status: Acute (4) Altered mental status: Code(s): R41.82 - Altered mental status, unspecified Status: Acute (5) Falls frequently: Code(s): R29.6 - Repeated falls Status: Acute (6) Elevated CK: Code(s): R74.8 - Abnormal levels of other serum enzymes Status: Acute (7) Anxiety: Code(s): F41.9 - Anxiety disorder, unspecified Status: Acute DS: Summary Hospital Course Reason for hospitalization: Altered mental status Hospital Course: Patient unable to give any HPI during interview, HPI gathered from chart information, Nursing. Per chart review, patient is a 79-year-old female with PMHx: Of but not limited to HTN, who presented to the ED with chief complaint of failure to thrive by family member, patient was originally seen in the ED several days ago prior to today with concerns about decreasing functional status. Time it is documented that patient refused all treatment upon admission and was discharged charge back home. However since then she has continued to become increasingly more confused. She is no longer able to ambulate per her go granddaughter who lives with her and essentially was her primary rn progressive care unit but it was recorded that primary caregiver had to leave the house last night as patient had become increasingly verbally abusive. Per chart review few when the grand daughter returned home she found the patient sitting on the floor the bathroom with a wheelchair on top of her. Is also noted that patient was covered in feces and urine. ED Work-up reveals: Initial vital signs b/p: 136/86, SpO2 96% on RA, RR: 16, p: rate 98, CTA reveals no acute cardiopulmonary pathology, prominent pulmonary arteries which may indicate pulmonary HTN, mild cardiomegaly, compression fraction of the L1 further evaluation advised hyperdense lesion in the left kidney which may be hemorrhagic cyst or mass follow-up advised. Head CT reveals no acute intracranial findings. Chest x-ray reveals no focal consolidation, mild. perihilar bronchial wall thickening. Finding suggestive of respiratory bronchiolitis 10/13: Patient is asleep during my time in the room with her. I discussed her care with the nurse. According to review of the chart patient will need placement in a long-term care facility versus hospice. Discussed this case with care coordination as well. Patient's daughter can only be contacted between 1 and 2:00 p.m. waiting for further instruction from care coordination for possible placement. Patient not able to undergo a PT or OT evaluation at this time. 10/14: Pt sitting in bed at time of exam. Moved from 307 -> 333. Discussed care with nurse and Care coordination. Granddaughter requesting psych eval for SI - psych will be consulted at this time. Working with CC and family regarding [facility] terminal care facility vs hospice. Family likely leaning towards LTC at this time. Will discuss with CC - likely d/c tomorrow pending acceptance to facility. Psychiatry evaluation performed on 10/14 due to suicidal ideations. Patient does endorse severe depression rating it a 9/10, with daily SI without plan/intent. Denies prior diagnosis of depression but was on a anti depression ?a long time ago ?. Psychiatry to start sertraline 25 mg daily and informed the patient of the medication takes several weeks to become effective. They also recommend have the patient follow-up with Psychiatry in the outpatient setting for medication management. On 10/15, we continue to work with care coordination regarding placement. She was eventually accepted to [facility] in [place] and was able to discharged on 10/17. Status at Discharge Functional status at discharge: uses cane/walker Overall status at discharge: patient is progressing back to baseline Time Spent with Patient Time attestation: Total time spent providing and/or coordinating discharge services: Time spent: Greater than 30 minutes Exam Narrative: GENERAL: Comfortable, no acute distress RESPIRATORY: clear to auscultation, no increased respiratory effort CARDIO: Regular rate and rhythm SKIN/EXTREMITIES: no rashes, no edema, no redness or tenderness NEURO: A&O x2 DS: Data Data Completed and Pending Labs on day of discharge: Labs from last 24 hours 10/17/24 10/17/24 10/16/24 07:57 05:37 20:48 WBC 7.1 RBC 3.57 L Hgb 10.4 L Hct 32.0 L MCV 89.6 MCH 29.1 MCHC 32.5 RDW 13.4 Plt Count 314 MPV 10.1 Immature Gran % (Auto) 0.4 Neut % (Auto) 71.6 Lymph % (Auto) 14.9 L [place] % (Auto) 9.7 H Eos % (Auto) 2.8 Baso % (Auto) 0.6 Lymph # (Auto) 1.06 [place] # (Auto) 0.7 H Eos # (Auto) 0.2 Baso # (Auto) 0.0 Abs Immat Gran (auto) 0.03 Absolute Neuts (auto) 5.1 Absolute Nucleated RBC 0.000 Nucleated RBC % 0.0 Sodium 140 Potassium 3.4 Chloride 107 Carbon Dioxide 23 Anion Gap 10 BUN 15 Creatinine 1.00 Estim Creat Clear Calc 38 Estimated GFR 53 L Glucose 83 POC Capillary Glucose 82 94 Calcium 8.9 Total Bilirubin 0.4 AST 21 ALT 16 Alkaline Phosphatase 66 Total Creatine Kinase 94 Total Protein 6.3 Albumin 3.2 L 10/16/24 16:39 WBC RBC Hgb Hct MCV MCH MCHC RDW Plt Count MPV Immature Gran % (Auto) Neut % (Auto) Lymph % (Auto) [place] % (Auto) Eos % (Auto) Baso % (Auto) Lymph # (Auto) [place] # (Auto) Eos # (Auto) Baso # (Auto) Abs Immat Gran (auto) Absolute Neuts (auto) Absolute Nucleated RBC Nucleated RBC % Sodium Potassium Chloride Carbon Dioxide Anion Gap BUN Creatinine Estim Creat Clear Calc Estimated GFR Glucose POC Capillary Glucose 84 Calcium Total Bilirubin AST ALT Alkaline Phosphatase Total Creatine Kinase Total Protein Albumin Discharge Plan Discharge Attending physician on discharge: Juana Parks Consulting providers: Mehul Andrade; Saul Robert Discharging Clinician: Mehul Andrade Anticipated Discharge Date/Time: 10/17/24 11:43 Patient Disposition: SNF Activity: no straining and as tolerated Diet: heart healthy Discharge Instructions: Discharge disposition: [facility], [place] Take medications as prescribed Monitor blood pressures Take caution while standing, rising, or moving Change positions slowly taking a break between each position change If you standing feel dizzy sit back down and take a break Encouraged to continue with yearly vaccinations Return to the emergency department if he developed sudden shortness of breath, chest pain, nausea, vomiting, upset stomach or intractable diarrhea Return to the emergency department if you develop fever greater than 101.5 Follow-up with the primary care physician within 1-2 weeks Thank you for choosing [facility] for your healthcare needs Patient Language: Taiwanese Stand Alone Forms: General Discharge Information Follow-up/Referrals: Kendra,Graham CADET [Other] Discharge Medications: New sertraline 25 mg tablet 25 mg PO DAILY Qty: 30 0RF lorazepam 0.5 mg tablet 0.5 mg PO TID PRN (Reason: anxiety) Qty: 10 0RF Continued lisinopril 10 mg tablet 10 mg PO DAILY rosuvastatin 10 mg tablet 10 mg PO DAILY multivitamin [Daily Multi-Vitamin] Tablet 1 tablet PO DAILY melatonin 5 mg tablet 5 mg PO HS trazodone 50 mg tablet 25 mg PO HS carvedilol 6.25 mg tablet 12.5 mg PO Q12H Qty: 60 0RF Discontinued lorazepam 0.5 mg tablet 0.5 mg PO PRN PRN (Reason: anxiety) acetaminophen 650 mg tablet 650 mg PO Q4-6H PRN (Reason: pain) Patient Comments: knees and hips pain Date of admission: 10/12/24 17:23 Primary Care Provider: Kendra,Graham CADET Admitting Provider: Joy Stout Attending physician on admission: Joy Stout Condition: Stable Quality VTE Prophylaxis VTE prophylaxis: mechanical ordered
== END 2024-10-17 14:50 | DRG 884 ==
LOC: ANHED 17:14 → ANH3MEDSUR 18:28
PROVIDERS: Nurse Practitioner; Admitting Provider Internal Medicine; Emergency Provider Emergency Medicine; Visit Provider Physician Assistant
DX: F03.C18 Unspecified dementia, severe, with other behavioral disturbance (principal); F32.2 Major depressive disorder, single episode, severe without psychotic features; R44.3 Hallucinations, unspecified; R45.851 Suicidal ideations; R62.7 Adult failure to thrive; I10 Essential (primary) hypertension; R29.6 Repeated falls; R74.8 Abnormal levels of other serum enzymes; Z66 Do not resuscitate; Z90.710 Acquired absence of both cervix and uterus; Z96.659 Presence of unspecified artificial knee joint
CPT/HCPCS: 36415; 70450; 71045; 71250; 74176; 80053; 80307; 81001; 82077; 82550; 82948; 83605; 83735; 84100; 84132; 84443; 84484; 85025; 85610; 85730; 86140; 87040; 87637; 93005; 96360; 96361; 97161; 97165; 97530; 97535; 99283; 99285; A9270; J2270; J7030; J7070